=== PATIENT | male | born 1940 | race Caucasian/White ===

== ENCOUNTER 2024-12-17 13:31 | Inpatient (IN) | payer OTHER ==
[2024-12-17] VITALS (14 sets, daily range): BP systolic 139–196; BP diastolic 70–92; PULSE 92–110; RESP 13–32; TEMP 98.3; O2SAT 97
[~2024-12-17] VITALS: Ht 170.2 cm; Wt 61.8 kg
--- NOTE | 2024-12-17 13:49 | EKG ---
[facility] [place] [place] Test Date: 2024-12-17 Test Time: 13:44:03 Pat Name: MARCELLO CRYSTAL Department: ED Room: Gender: [employer]: [facility] : 1940 Requested By: RITIKA MARIO Order Number: [id number] Reading MD: Bebe Manning Measurements Intervals [place] Rate: 63 P: -6 MN: 164 QRS: 9 QRSD: 155 T: -26 QT: 406 QTc: 417 Interpretive Statements Sinus rhythm Right bundle branch block No previous ECG available for comparison Electronically Signed On 12-17-2024 15:42:09 NEWS [place]ER[place] PERSON by Bebe Manning Please click the below link to view image of tracing.
[2024-12-17 14:04] LABS: IMMATURE GRANULOCYTE ABSOLUTE 0.02 K/uL (0-1); NUCLEATED RED BLOOD CELLS 0.0 % (0.0-0.19); PLATELET COUNT (AUTO) 311 K/uL (130-400); RED BLOOD CELL COUNT(AUTO) 4.73 MIL/uL (4.50-6.20); RED CELL DISTRIBUTION WIDTH 16.6 % (11.0-15.5); WHITE BLOOD COUNT (AUTO) 7.9 K/uL (4.8-10.8)
[2024-12-17 14:14] LABS: INR 1.01 (0.85-1.15)
[2024-12-17 14:17] LABS: CREATININE 1.5 mg/dL (0.5-1.3); GLOMERULAR FILTR. RATE CALC 51.0 mL/min (>90); GLUCOSE,RANDOM 103.0 mg/dL (70-105); SODIUM SERUM 140.0 mmol/L (136-145); UREA NITROGEN, BLOOD 14.0 mg/dL (7-18)
--- NOTE | 2024-12-17 14:19 | NUR ---
PATIENT REPORTS NAUSEA AND VOMITTING.
[2024-12-17 14:21] LABS: ASPARTATE AMINOTRANSFERASE 19.0 U/L (10-37); CREATINE KINASE, TOTAL 54.0 U/L (21-232); TOTAL PROTEIN, SERUM 7.7 g/dL (6.0-8.3)
--- NOTE | 2024-12-17 14:55 | HMCIMG ---
EXAM: CT BRAIN WITHOUT CONTRAST Technique: Axial computed tomography of the head with coronal and sagittal reformations. Radiation dose reduction was achieved using ALARA principles including automatic exposure control and iterative reconstruction with parameter adjustments according to patient size and weight. CTDIvol 49.3 mGy; DLP 920.9 mGy???cm. Contrast: No intravenous contrast administered. Clinical Information: Nausea, vomiting, and diarrhea; altered mental status. Comparison: None Findings: Brain: Brain parenchyma demonstrates normal attenuation without focal parenchymal abnormality; meza???white matter differentiation is maintained; brainstem and cerebellum are unremarkable. Ventricles and extra-axial spaces: Ventricular size and configuration are within normal limits; prominence of the sulci, basal cisterns, and sylvian fissures is consistent with age-related parenchymal volume loss; no extra-axial fluid collection or hemorrhage is identified; midline structures are nondisplaced. Skull and extracranial soft tissues: Skull base and calvarium show normal density without destructive lesion; extracranial soft tissues are unremarkable. Orbits: Intraorbital contents are unremarkable. Paranasal sinuses and mastoid air cells: Mucosal polyp in the left maxillary sinus; remaining visualized paranasal sinuses are clear and mastoid air cells are well aerated. Impression: * No acute intracranial abnormality, including no acute hemorrhage, mass effect, or acute territorial infarct. * Age-related parenchymal volume loss. * Chronic small vessel ischemic changes in the periventricular and subcortical white matter. * Left maxillary sinus mucosal polyp. /[place]
[2024-12-17] MEDS: 0.9%NACL 1000ML 1,000 ML IV ONE (14:57)
[2024-12-17] MEDS: ZOSYN 3.375GM +NS 50ML IV ONE (14:57)
--- NOTE | 2024-12-17 15:02 | HMCIMG ---
EXAM: CR Chest, 1 View. CLINICAL HISTORY: cp COMPARISON: None provided. FINDINGS: LUNGS: The lungs show no infiltrate or other acute finding. PLEURAL SPACES: No pleural effusion or pneumothorax. MEDIASTINUM: The cardiomediastinal silhouette is within normal limits. BONES: No acute osseous abnormality. Partially included right shoulder prosthesis is present. IMPRESSION: No acute cardiopulmonary pathology is evident. /[place]
--- NOTE | 2024-12-17 15:30 | NUR ---
DR HORN AT BEDSIDE FOR EVALUATION
--- NOTE | 2024-12-17 15:33 | ERN ---
General Chief Complaint: Nausea,Vomiting,Diarrhea Stated Complaint: HEADACHE/ N/V/D Time Seen by MD: 13:35 Time Seen by Midlevel: 13:35 Source: patient History of Present Illness Initial Comments 84-year-old male with a past medical history of hypertension presents to the emergency department for evaluation of a headache, nausea, vomiting, and diarrhea that started earlier today. According to his who is at bedside the patient has not taken his antihypertensive for several days. Allergies: Coded Allergies: No Known Drug Allergies (Unverified Allergy, Unknown, 12/17/24) Past Medical History Past Medical History: COPD, High Cholesterol, Hypertension Past Surgical History: None ROS Dictation CONSTITUTIONAL: Negative except for HPI HEAD/FACE: Negative except for HPI EENT: Negative except for HPI RESPIRATORY: Negative except for HPI GASTROINTESTINAL/ABDOMINAL: Negative except for HPI GENITOURINARY: Negative except for HPI MUSCULOSKELETAL: Negative except for HPI INTEGUMENTARY: Negative except for HPI NEUROLOGICAL/PSYCH: Negative except for HPI HEMATOLOGIC/LYMPHATIC: Negative except for HPI All Systems Negative, Except as noted above. 13 point review of systems assessed and all negative except for above. Physical Exam Physical Exam Dictation Vital Signs reviewed General Appearance: Alert, oriented x 3, no acute distress, pale, ill-appearing Head and Face: non-traumatic. Eyes: PERRL, pink conjunctivas, eyelid no trauma, anterior chamber with arcus senilis. Ears: Pinnas intact and no signs of trauma or erythema ear canals clear and no discharge TM no erythema Nose: No discharge, no bleeding. Oropharynx: Mouth normal, tongue pink, pharynx clear,no erythema, tonsils no exudates, no abscesses noted, mucous membrane moist Neck: Supple, non-tender, no thyromegaly, no masses, no JVD, no bruits Breast:Deferred Chest:No tenderness, no crepitus, no paradoxical movement, no retractions Lungs:Clear, well-ventilated, symmetric, no rales, no wheezing, no rhonchi, no stridor, good breath sounds bilaterally Heart: Regular rate, regular rhythm, no murmur, no gallops Vascular: no peripheral edema, Abdomen: Soft, positive bowel sounds, nondistended, no guarding, nontender, no rebound, no masses no hepatomegaly, no splenomegaly, no Mcgee's sign, no hernias. Rectal: Deferred Genital: Deferred Neurological: Normal speech, motor function intact, sensory function intact Musculoskeletal: Neck nontender, full range of motion, back nontender, full range of motion, Extremities: nontender, full range of motion Skin: Color pink, dry, no turgor, no rash, no lacerations, no abrasions, no contusions. Lymphatic: Deferred Results Laboratory and Microbiology Lab and Micro Result Laboratory Tests Test 12/17/24 13:54 White Blood Count 7.9 K/uL (4.8-10.8) Red Blood Count 4.73 MIL/uL (4.50-6.20) Hemoglobin 12.8 g/dL (14.0-18.0) L Hematocrit 39.8 % (42-54) L Mean Corpuscular Volume 84.1 fL (79-99) Mean Corpuscular Hemoglobin 27.1 pg (27.0-33.0) Mean Corpuscular Hemoglobin Concent 32.2 g/dL (32.0-36.0) Red Cell Distribution Width 16.6 % (11.0-15.5) H Platelet Count 311 K/uL (130-400) Mean Platelet Volume 9.8 fL (7.5-10.5) Immature Granulocyte % (Auto) 0.3 % (0-1) Neutrophils (%) (Auto) 71.5 % (40.0-77.0) Lymphocytes (%) (Auto) 17.7 % (21.0-51.0) L Monocytes (%) (Auto) 9.7 % (3.0-13.0) Eosinophils (%) (Auto) 0.3 % (0.0-8.0) Basophils (%) (Auto) 0.5 % (0.0-5.0) Neutrophils # (Auto) 5.7 K/uL (1.8-7.7) Lymphocytes # (Auto) 1.4 K/uL (1.0-4.8) Monocytes # (Auto) 0.8 K/uL (0.1-1.0) Eosinophils # (Auto) 0.02 K/uL (0.00-0.70) Basophils # (Auto) 0.04 K/uL (0.00-0.20) Absolute Immature Granulocyte (auto 0.02 K/uL (0-1) Nucleated Red Blood Cells 0.0 % (0.0-0.19) Prothrombin Time 10.7 SEC (9.6-11.6) Prothromb Time International Ratio 1.01 (0.85-1.15) Activated Partial Thromboplast Time 23.1 SEC (26.3-35.5) L Sodium Level 140 mmol/L (136-145) Potassium Level 5.0 mmol/L (3.5-5.1) Chloride Level 101 mmol/L (101-111) Carbon Dioxide Level 29 mmol/L (21-32) Blood Urea Nitrogen 14 mg/dL (7-18) Creatinine 1.5 mg/dL (0.5-1.3) H Glomerular Filtration Rate Calc 51 mL/min (>90) Random Glucose 103 mg/dL (70-105) Lactic Acid Level 2.8 mmol/L (0.8-2.5) H Total Calcium 9.6 mg/dL (8.5-10.1) Magnesium Level 1.60 mg/dL (1.80-2.40) L Total Bilirubin 0.6 mg/dL (0.2-1.0) Aspartate Amino Transf (AST/SGOT) 19 U/L (10-37) Alanine Aminotransferase (ALT/SGPT) 18 U/L (12-78) Alkaline Phosphatase 107 U/L (50-136) Total Creatine Kinase 54 U/L (21-232) Troponin I High Sensitivity 15 ng/L (4-75) B-Type Natriuretic Peptide 126 pg/mL (0-100) H Total Protein 7.7 g/dL (6.0-8.3) Albumin 4.1 g/dL (3.5-5.0) Lipase 31 U/L (16-77) Procalcitonin < 0.05 ng/mL (0.05-0.5) L Labs Reviewed?: Yes MDM MDM: Differential diagnosis: Hypertensive urgency, hypertensive emergency, intracranial bleed, acute coronary syndrome Rationale: Tests considered and ordered secondary to shared decision making include: Previous outside records reviewed: Old ER visits. Risk of complication and/or morbidity or mortality of patient management: None Medications-Per medication reconciliation Need for hospitalization: Patient does meet criteria for hospitalization. Need for emergency major/minor surgery: No There are no social concerns with this patient. Prescription drug management Prescriptions will include symptomatic care Patient's prior external medical records from other ER visits were reviewed by me as indicated. Prior testing and results from previous visits were reviewed. Prior tests were taken into account with medical decision making and resource utilization, independent historian/historians were used to obtain complete medical history. I independently interpreted the test that were performed, results were reviewed by me and considered findings on radiology if ordered. Medical management and examination interpretation discussions were had by me with other qualified healthcare professionals as indicated for the patient's care. ED Course Orders Procedure Category Date Status Time 12 Lead Ekg Tracing- EKG 12/17/24 Complete Technical 13:40 B-Type Natriuretic LAB 12/17/24 Complete Peptide 13:40 Cbc With Differential LAB 12/17/24 Complete 13:40 Comprehensive LAB 12/17/24 Complete Metabolic Panel 13:40 Creatine Kinase, Total LAB 12/17/24 Complete 13:40 Lactic Acid LAB 12/17/24 Complete 13:40 Lipase LAB 12/17/24 Complete 13:40 Magnesium LAB 12/17/24 Complete 13:40 Urinalysis Profile LAB 12/17/24 Logged 13:40 Troponin I High LAB 12/17/24 Complete Sensitivity 13:40 Pt And Ptt LAB 12/17/24 Complete 13:40 Procalcitonin LAB 12/17/24 Complete 13:40 Chest 1vw RAD 12/17/24 Resulted 13:40 Ct Abdomen/Pelvis W/O CT 12/17/24 Taken Contrast 13:40 Ct Head/Brain W/O CT 12/17/24 Resulted Contrast 13:40 Hydralazine 20mg Inj PHA 12/17/24 Complete (Apresoline 20mg In 14:30 Zosyn 3.375gm+Ns 50ml PHA 12/17/24 Complete (Zosyn 3.375gm+Ns 14:30 0.9%Nacl 1000ml (Ns PHA 12/17/24 Complete 1000ml) 15:00 Labetalol 20mg Syg PHA 12/17/24 Complete (Trandate 20mg Syg) 15:00 Morphine 2mg Syg PHA 12/17/24 In Process (Morphine 2mg Syg) 15:30 Ondansetron 4mg Inj PHA 12/17/24 In Process (Zofran 4mg Inj) 15:30 Nicardipine 25mg Inj PHA 12/17/24 In Process (Cardene 25mg Inj) 15:30 Nicardipine 25mg Inj PHA 12/17/24 Complete (Cardene 25mg Inj) 15:17 Current Medications Medications (Trade) Dose Ordered Sig/Elie Route PRN Reason Start Time Stop Time Status Last Admin Dose Admin Hydralazine HCl (APRESOLine 20MG INJ) 10 mg ONCE ONCE IV 12/17/24 14:30 12/17/24 14:31 DC 12/17/24 14:12 Labetalol HCl (TRANdate 20MG SYG) 10 mg ONCE ONCE IV 12/17/24 15:00 12/17/24 15:01 DC 12/17/24 14:54 Morphine Sulfate (morPHINE 2MG SYG) 2 mg ONCE ONCE IVP 12/17/24 15:30 12/17/24 15:31 12/17/24 15:27 Nicardipine HCl (CarDENE 25MG INJ) 25 mg STK-MED ONCE IV 12/17/24 15:17 12/17/24 15:17 DC 12/17/24 15:23 Nicardipine HCl 25 mg/Sodium Chloride 250 ml @ 0 mls/hr PROTOCOL IV 12/17/24 15:30 01/16/25 15:29 Ondansetron HCl (zoFRAN 4MG INJ) 4 mg ONCE ONCE IVP 12/17/24 15:30 12/17/24 15:31 12/17/24 15:27 Piperacillin Sod/ Tazobactam Sod (Zosyn 3.375gm+NS 50ml) 3.375 gm ONCE ONCE IV 12/17/24 14:30 12/17/24 14:31 DC 12/17/24 14:57 Sodium Chloride 1,000 ml @ 0 mls/hr ONCE ONCE IV 12/17/24 15:00 12/17/24 15:01 DC 12/17/24 14:57 Vital Signs Date Time Temp Pulse Resp B/P (MAP) Pulse Ox O2 Delivery O2 Flow Rate FiO2 12/17/24 15:23 86 197/106 12/17/24 15:14 96.6 85 22 218/100 99 Room Air* 0 12/17/24 15:07 96.6 83 22 210/123 99 Room Air* 0 12/17/24 14:54 102 216/97 12/17/24 14:40 96.6 92 22 216/98 98 Room Air* 0 12/17/24 14:15 96.6 70 22 216/112 98 Room Air* 0 21 12/17/24 14:12 70 216/112 12/17/24 13:32 96.6 99 22 210/130 97 DX & DISP Disposition: Inpatient Departure Impression: Primary Impression: Hypertensive emergency Additional Impression: Lactic acidosis Condition: Stable Referrals: SELF,REFERRAL (PCP) Time of Disposition: 15:32 I have reviewed the case, and I agree with, Diagnosis and Plan I performed the substantive portion of the visit. I have reviewed and pers onally made and approve the management plan that is documented in the note by myself or the MAGAN. I acknowledge for responsibility for the patient's management plan. RITIKA MARIO PAC Dec 17, 2024 15:33
--- NOTE | 2024-12-17 16:00 | HMCIMG ---
EXAM: CT ABDOMEN AND PELVIS WITHOUT CONTRAST Technique: Multidetector helical computed tomography of the abdomen and pelvis from the diaphragms through the inguinal region with axial images and multiplanar reformations; dose reduction per ALARA with automatic exposure control and iterative reconstruction. CTDIvol 5.4 mGy; DLP 286.60 mGy???cm. Contrast: No intravenous contrast administered. Clinical Information: Nausea, vomiting, diarrhea; abdominal pain. Comparison: None Findings: Lung bases: Trace right pleural effusion is present; a 4 mm calcified nodule is seen in the left lower lobe; multiple additional 1???2 mm nodular opacities are present in both lower lobes; no lobar collapse or focal consolidation is identified. Liver: Normal size and morphology with smooth contour; no focal hepatic lesion is identified on non-contrast computed tomography; no intrahepatic biliary ductal dilatation. Small left lobe hepatic cyst follow up with US. Gallbladder and biliary tree: Gallbladder wall thickness is within normal limits with smooth margins and homogeneous luminal contents; no cholelithiasis or pericholecystic inflammatory change is identified; common bile duct caliber is within normal limits where visualized. Pancreas: Normal size and attenuation; main pancreatic duct is not dilated; no peripancreatic fluid or fat stranding. Spleen: Normal size and attenuation without focal lesion. Adrenals: Normal morphology and attenuation bilaterally. Kidneys and ureters: Normal renal size and attenuation bilaterally without hydronephrosis, nephrolithiasis, or focal renal mass on non-contrast images. Stomach and duodenum: Stomach is distended without wall thickening; gastroesophageal junction and pylorus are unremarkable. Small bowel: Jejunal and ileal loops are normal in caliber without wall thickening or obstruction. Colon and appendix: Colon and rectum contain fecal material without abnormal distention; no appendiceal enlargement or periappendiceal inflammatory change is identified. Peritoneum and mesentery: No free intraperitoneal fluid or free air; mesentery and omentum are unremarkable. Lymph nodes: No pathologically enlarged abdominal or pelvic lymph nodes are identified. Retroperitoneum and vasculature: Moderate atherosclerotic calcifications of the abdominal aorta and bilateral iliac arteries are present; aorta and inferior vena cava are normal in course and caliber. Pelvic organs: Urinary bladder demonstrates normal wall thickness and contour; prostate is normal in size. Abdominal wall/soft tissues: No acute abnormality of the abdominal wall or paraspinal soft tissues. Osseous structures: Degenerative changes of the visualized spine are present; prior laminectomies at L3, L4, and L5 are noted; posterior transpedicular screw fixation involving L2 and L3 is present; multilevel spondylosis is noted; no acute osseous abnormality is identified. Impression: * No acute intra-abdominal or pelvic abnormality on non-contrast computed tomography???no obstruction, appendicitis, abscess, free air, or free fluid is identified. Small left lobe hepatic cyst follow up with US. * Trace right pleural effusion and small pulmonary nodules at the lung bases, including a 4 mm calcified nodule in the left lower lobe and multiple 1???2 mm nodules bilaterally; the calcified nodule is benign in appearance and the sub-5 mm nodules are of low clinical significance in low-risk patients???consider guideline-based clinical follow-up only if the patient is high risk for primary lung cancer. * Moderate atherosclerotic calcifications of the abdominal aorta and bilateral iliac arteries. * Postoperative changes of the lumbar spine with multilevel degenerative spondylosis and prior laminectomies at L3???L5 and transpedicular screw fixation at L2???L3, without acute osseous abnormality. /[place]
--- NOTE | 2024-12-17 16:13 | NUR ---
DCP:HOME vs SNF SW spoke to Georgette Monroy [phone] who was at bed side. states that they just moved to [place] from [facility] 2 months ago and live in a 5th wheel. As per , he does not use and DME because they are in "tight quarters" where the equipment may not fit and if he feels unsteady he grabs onto the dsouza. Pt does not have any home health or provider services. Pt at times requires assistance with ADLs and assists. Pt was about to establish as a patient at the [facility] however was instructed to come into the ER instead. At [place] states that they are willing to consider a SNF if a doctor recommends it.
[2024-12-17] MEDS: 0.9%NACL 1000ML 1,000 ML IV SCH (16:29)
[2024-12-17] MEDS ORDERED: NITROGLYCERIN 0.4 MG SL TAB SL PRN (16:30)
[2024-12-17 16:31] LABS: LACTATE DEHYDROGENASE 113.0 U/L (81-234)
[2024-12-17 16:34] LABS: CREATINE KINASE, TOTAL 31.0 U/L (21-232)
--- NOTE | 2024-12-17 16:40 | NUR ---
CARDIOLOGY AT BEDSIDE AT THIS TIME.
--- NOTE | 2024-12-17 16:46 | NUR ---
ATTEMPTED TO CALL REPORT AT THIS TIME; PENDING CALL BACK
--- NOTE | 2024-12-17 17:11 | CONS ---
[facility] CONSULTATION NOTE Date Patient Seen: Dec 17, 2024 Time of Visit: 184 Supervising Physician: [Dr. Antony Grady] Reason for Consultation: [ICU consult for HTN emergency ] Primary Care Physician: [Patient does not remember the neam- relocated here from [facility] ] Outpatient Specialists: [ ] Inpatient Consults: [[facility] team for ICU management on Cardene drip ] PROBLEM LIST: Hypertensive emergency-POA Possible hypertensive encephalopathy-POA Intractable headache-POA Persistent diarrhea-POA Intractable vomiting-POA ALEAH-POA Hypomagnesemia-POA Hyperlactatemia-POA Lung nodules-POA Small left lobe hepatic cyst-POA Medical [id number] Tremors on the lips and arms, denies DX of parkinsons' disease-POA RLS Primary HTN COPD, not on exacerbation HLD Arthritis GERD Mood disorder Chronic pain Mild dementia PLAN: -Continue critical care management -Continue Cardene drip, wean-off per BP response -Give a one-time dose Clonidine; resume home BP meds -Obtain stool CX, GI panel and O&P -Anti-emetics PRN -Obtain 2decho in am -Monitor and replete electrolytes PRN -I do not see any indication for antibiotic at this time since his UA, CXR and CT AP were unremarkable and did not show any acute processes. Will continue to monitor pending stool studies -Education regarding adherence to treatment plan. He claims he did not receive his prescription eversince he moved here in [place] from [facility]. 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 Patient states that he recently moved to [place] about a month ago. He is originally from [facility]. He has underlying history of hypertension and has been maintained on multiple antihypertensives as outpatient. He has been maintained on lisinopril 20 mg daily as well as amlodipine 10 mg daily. Since moving to [place], he has not taken any antihypertensives for about a month due to problems establishing with a primary care physician as outpatient. Over the last four days, he has been having malaise, subjective fevers, chills, headache, nausea. He has been having diarrhea and reports having had about six loose stools today. Headache has been progressing and was severe in intensity and patient rates it as 10/10. Reports having some photophobia. Denies any neck pain or stiffness. Denies having previous history of stroke, seizures or epilepsy. Denies previous history of DE. Denies focal weakness of upper or lower extremities." BIS team was consulted for ICU management on [facility] for HTN emergency. Patient was seen and evaluated in ED room nine, appears alert and oriented but struggling with his memory with tremors on his hands and lips. Unknown if this is his baseline or a result of hypertensive emergency. He denies any history Parkinson's disease. For bedside RN, patient has history of dementia and mood disorders. Patient claims that earlier, he was feeling like he has had was about to explode. He is not take any med for the past two months because he recently moved here in [place] from [facility] and his PCP dinner since his prescription here. Onset of his symptoms was four days ago, he was verbally concerned about him eating chicken brought from [employer]. Apparently, there was an outbreak about certain infection caused by the chicken from [employer]. P hysical assessment was unrevealing without focal neurologic deficits. Patient claims that his headache has significantly improved, his BP was between 150-160 with ongoing Cardizem drip running. Goals of care were discussed with the patient verbalized understanding and agreement. We will continue to follow along patient's response to treatment. On behalf of BIS team, thank you for the opportunity to participate in 's care. PAST MEDICAL HX: see above PAST SURGICAL HX: noncontributory SOCIAL HISTORY: No tobacco, ETOH, or illicit drug use Coded Allergies: No Known Drug Allergies (Unverified Allergy, Unknown, 12/17/24) REVIEW OF SYSTEMS: 12 point ROS reviewed with patient. Pertinent positives mentioned above. Otherwise negative. PHYSICAL EXAM: GENERAL: alert, weak, awake oriented x 3 HEENT: EOMI, Sclera non icteric, moist mucosa, tremors' on the lips NECK: Supple, no JVD, trachea midline LUNGS: Clear breath sounds bilaterally. No wheezes HEART: Regular rate and rhythm. Normal S1 and S2, without murmurs ABD: Abdomen soft, nontender. Bowel sounds present EXT: No clubbing cyanosis or edema, tremors on the arms NEURO: Alert and oriented to person, follows commands Vital Signs (last 8hr) Date Time Temp Pulse Resp B/P (MAP) Pulse Ox O2 Delivery O2 Flow Rate FiO2 12/17/24 16:55 96.6 98 21 167/78 98 Room Air* 0 12/17/24 16:36 96.6 101 21 111/54 98 Room Air* 0 12/17/24 16:22 96.6 103 21 218/83 98 Room Air* 0 12/17/24 16:03 96.6 96 21 209/83 97 Room Air* 0 12/17/24 15:39 96.6 95 21 197/106 95 Room Air* 0 12/17/24 15:30 96.6 85 22 205/98 99 Room Air* 0 12/17/24 15:23 86 197/106 12/17/24 15:14 96.6 85 22 218/100 99 Room Air* 0 12/17/24 15:07 96.6 83 22 210/123 99 Room Air* 0 12/17/24 14:54 102 216/97 12/17/24 14:40 96.6 92 22 216/98 98 Room Air* 0 12/17/24 14:15 96.6 70 22 216/112 98 Room Air* 0 12/17/24 14:12 70 216/112 12/17/24 13:32 96.6 99 22 210/130 97 LABS: Hematology Labs: Test 12/17/24 13:54 Range/Units White Blood Count 7.9 4.8-10.8 K/uL Red Blood Count 4.73 4.50-6.20 MIL/uL Hemoglobin 12.8 L 14.0-18.0 g/dL Hematocrit 39.8 L 42-54 % Mean Corpuscular Volume 84.1 79-99 fL Mean Corpuscular Hemoglobin 27.1 27.0-33.0 pg Mean Corpuscular Hemoglobin Concent 32.2 32.0-36.0 g/dL Red Cell Distribution Width 16.6 H 11.0-15.5 % Platelet Count 311 130-400 K/uL Mean Platelet Volume 9.8 7.5-10.5 fL Immature Granulocyte % (Auto) 0.3 0-1 % Neutrophils (%) (Auto) 71.5 40.0-77.0 % Lymphocytes (%) (Auto) 17.7 L 21.0-51.0 % Monocytes (%) (Auto) 9.7 3.0-13.0 % Eosinophils (%) (Auto) 0.3 0.0-8.0 % Basophils (%) (Auto) 0.5 0.0-5.0 % Neutrophils # (Auto) 5.7 1.8-7.7 K/uL Lymphocytes # (Auto) 1.4 1.0-4.8 K/uL Monocytes # (Auto) 0.8 0.1-1.0 K/uL Eosinophils # (Auto) 0.02 0.00-0.70 K/uL Basophils # (Auto) 0.04 0.00-0.20 K/uL Absolute Immature Granulocyte (auto 0.02 0-1 K/uL Nucleated Red Blood Cells 0.0 0.0-0.19 % Erythrocyte Sedimentation Rate 11 0-20 MM/HR Chemistry Labs: Test 12/17/24 16:06 12/17/24 13:54 Range/Units Total Creatine Kinase 31 # 21-232 U/L Troponin I High Sensitivity 20.9 4-75 ng/L Sodium Level 140 136-145 mmol/L Potassium Level 5.0 3.5-5.1 mmol/L Chloride Level 101 101-111 mmol/L Carbon Dioxide Level 29 21-32 mmol/L Blood Urea Nitrogen 14 7-18 mg/dL Creatinine 1.5 H 0.5-1.3 mg/dL Glomerular Filtration Rate Calc 51 >90 mL/min Random Glucose 103 70-105 mg/dL Lactic Acid Level 2.8 H 0.8-2.5 mmol/L Total Calcium 9.6 8.5-10.1 mg/dL Magnesium Level 1.60 L 1.80-2.40 mg/dL Total Bilirubin 0.6 0.2-1.0 mg/dL Aspartate Amino Transf (AST/SGOT) 19 10-37 U/L Alanine Aminotransferase (ALT/SGPT) 18 12-78 U/L Alkaline Phosphatase 107 50-136 U/L Lactate Dehydrogenase 113 81-234 U/L C-Reactive Protein, Quantitative 2.40 0.5-3.0 mg/L B-Type Natriuretic Peptide 126 H 0-100 pg/mL Total Protein 7.7 6.0-8.3 g/dL Albumin 4.1 3.5-5.0 g/dL Lipase 31 16-77 U/L Procalcitonin < 0.05 L 0.05-0.5 ng/mL Coagulation Labs: Test 12/17/24 13:54 Range/Units Prothrombin Time 10.7 9.6-11.6 SEC Prothromb Time International Ratio 1.01 0.85-1.15 Activated Partial Thromboplast Time 23.1 L 26.3-35.5 SEC DIAGNOSTICS / RADIOLOGY RESULTS: [ ] PLAN NEURO: Minimize central acting medications as possible. Fall Precautions. Well lighted room through the day and minimize interruptions through the night to prevent acute delirium. PULMONARY: Supplemental 02 as needed Titrate Fio2 to keep Spo2 > or = 90% DuoNebs and CPT as needed IS hourly while awake for pulmonary hygiene Out of bed to chair as tolerated VAP Bundle Vent/BIPAP Settings: [ ] Driving pressure: [ ] P Plat: [ ] Static C: [ ] Static R: [ ] P/F Ratio: [ ] CARDIOVASCULAR: Follow hemodynamics. Titrate vasopressor to keep MAP >65 or systolic blood pressure >95mmHg DRIPS: [Cardene drip ] LINES: [ ] GI & NUTRITION: Continue nutritional support Aspirations precautions Prokinetic agents and laxatives as needed KIDNEYS & ELECTROLYTES: Strict monitoring of intake and output Daily weights Avoid nephrotoxic agents Monitor electrolytes and replace as needed Goal urine output of 30mL/hr or 0.5mL/kg/hr Urine output: [ ] Fluid Balance: [ ] ENDOCRINE: Maintain blood glucose between 100-180 at all times. Insulin sliding scale for blood glucose management INFECTIOUS DISEASE: Trend temperature. Taylor-culture if febrile. Micro: [ ] Antibiotics: [ ] HEMATOLOGY & COAGULATION: Monitor H&H. Keep Hgb > 7 Transfuse 1 unit of PRBC for Hgb < 7 Transfuse 1 pack of platelets of platelets < 20, 000 Watch for any signs and symptoms of bleeding SKIN: Pressure ulcer prevention per facility protocol Rehab: PT/OT Prophylaxis: GI: DVT: [ ] Code Status: Full Resuscitation Disposition: [ ] Other: Total patient care time exceeds 35 minutes excluding all procedures. Case was discussed and seen with my supervising physician. The above plan was formulated and agreed upon. SONJA HOGAN [facility] Dec 17, 2024 17:11
[2024-12-17] MEDS ORDERED: IOHEXOL 350 MG/ML 100ML INFUS..BTL IV ONE ×2 (17:21→18:15)
--- NOTE | 2024-12-17 17:32 | HP ---
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 Patient states that he recently moved to [place] about a month ago. He is originally from [facility]. He has underlying history of hypertension and has been maintained on multiple antihypertensives as outpatient. He has been maintained on lisinopril 20 mg daily as well as amlodipine 10 mg daily. Since moving to [place], he has not taken any antihypertensives for about a month due to problems establishing with a primary care physician as outpatient. Over the last four days, he has been having malaise, subjective fevers, chills, headache, nausea. He has been having diarrhea and reports having had about six loose stools today. Headache has been progressing and was severe in intensity and patient rates it as 10/10. Reports having some photophobia. Denies any neck pain or stiffness. Denies having previous history of stroke, seizures or epilepsy. Denies previous history of VT. Denies focal weakness of upper or lower extremities. Patient does report having history of COPD and has been maintained on home inhalers. Reports that close to January last year, he had infection of right shoulder prosthesis that was placed about 6-7 years ago with loosening of the screws. Patient was found to have prosthetic joint infection and received prolo nged course of IV antibiotics which was followed by right shoulder reverse arthroplasty in [place]. Patient on bedside interview appears in distress with active nausea, vomiting, severe headache. On presentation to the hospital, patient was found to have blood pressure trending between 200s-220s/100s-130s systolic, noted to be afebrile with T-max of 96.6 F, heart rate of 85. Labs on presentation showed WBC count of 7900, hemoglobin 12.8, platelet count of 311,000. BMP showed sodium of 140, potassium 5.0, BUN of 14, creatinine 0.5, lactic acid of 2.8, magnesium 1.6, initial cardiac troponin 15. Patient underwent CT head without contrast which showed no acute intracranial abnormality with no findings of acute hemorrhage, mass effect or acute territorial infarct. Chest x-ray showed no acute infiltrates, CT abdomen pelvis without contrast showed findings of no acute intra-abdominal or pelvic abnormality. Patient received bolus of NS in the ER along with doses of IV hydralazine and IV labetalol with no improvement of blood pressure, patient was subsequently initiated on Cardene drip. Patient will be admitted to ICU. Patient will be initiated on Cardene drip. Consultation with Neurology will be requested. We will have Cardiology and Intensive Care Service see this patient closely. Patient during his ER stay also started having chest pain, substernal with no associated radiation to the back or the shoulder blade. Patient received a dose of nitroglycerin with improvement of chest pain. We will see how patient progresses in the next 48-72 hours. Condition remains critical, plan of care was discussed with patient and family at bedside and personally discussed patient's case with multiple consultants. REVIEW OF SYSTEMS CONSTITUTIONAL: Fevers, chills, fatigue, malaise NEUROLOGICAL: Severe headache this morning, denies any neck pain or stiffness ENT: No hearing loss, otalgia, otorrhea, rhinitis, rhinorrhea, hoarseness, or sore throat. CARDIOVASCULAR: Reported having substernal chest pressure during ER stay PULMONARY: Denies any shortness of breath, cough, phlegm/sputum, hemoptysis, pleuritic chest pain. SLEEP: Denies morning headaches, daytime somnolence or napping. Denies difficulty falling asleep, staying asleep, waking from sleep. Denies knowledge of snoring. GASTROINTESTINAL: Denies any type of dysphagia to either liquids or solids. Denies nausea, vomiting, pyrosis, early satiety, abdominal pain, diarrhea, constipation, or changes in stool consistency or caliber. Denies coffee-ground emesis, hematemesis, hematochezia, or melanotic stools. GENITOURINARY: Denies frequency, urgency, nocturia, hematuria or incontinence (Storage/Irritative symptoms.) Low urinary stream, straining to void, urinary intermittency or hesitancy, splitting of the voiding stream, terminal dribbling. ENDOCRINOLOGIC: Denies polyuria, polydipsia, polyphagia or heat/cold intolerances. HEMATOLOGIC: Denies thrombophilia/previous clots, or coagulopathy/bleeding disorders. ONCOLOGIC: Denies personal history of malignancy. DERMATOLOGIC: Denies rashes or pruritus. PSYCHIATRIC: Denies any suicidal or homicidal ideation. Denies hallucinations. 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 treated in [place] PAST SURGICAL HISTORY: Right shoulder reverse arthroplasty recently close to 03/2024, prior history of right shoulder prosthesis about 6-7 years ago, back surgery, history of abdominal surgery while in his 20s PAST SOCIAL HISTORY: Patient reports having remote history of significant smoking, denies significant alcohol consumption, denies illicit drug use FAMILY HISTORY: Denies pertinent family history Allergies: No known drug allergies Home medications: Patient reports being on amlodipine 10 mg daily, lisinopril 20 mg daily, atorvastatin, home inhalers, patient has not taken any medications for about a month since moving from [place] moved to [place] Coded Allergies: No Known Drug Allergies (Unverified Allergy, Unknown, 12/17/24) PHYSICAL EXAM GENERAL APPEARANCE: The patient is awake, alert, appears frail and debilitated, he is vomiting on the stretcher, appears in mild distress NEUROLOGICAL: Cranial nerves II-XII grossly intact. Patient is moving both the upper and lower extremities with no focal deficits, patient is very soft spoken HEENT: Face is symmetric. Pupils are equal and reactive. Extraocular movements are intact. NECK: Supple. No JVD. No thyromegaly. No submental, submandibular, pre- /postauricular, occipital or supraclavicular lymphadenopathy. CHEST: Normal chest expansion. No Telemetry. LUNGS: Absence of any rales, rhonchi or any wheezing. CARDIOVASCULAR: Regular. S1 and S2 normal. No appreciable rubs, murmurs or gallops. ABDOMEN: Soft, nontender, and nondistended. There is no rebound, voluntary guarding, or rigidity. : Deferred. No Sanz. EXTREMITIES: Non-edematous and not cyanotic. No clubbing. Good capillary refill. SKIN: No skin breakdown. Vital Sign (Last 24 Hours) 12/17/24 16:55 Temp 96.6 Pulse 98 Resp 21 B/P (MAP) 167/78 Pulse Ox 98 O2 Delivery Room Air* O2 Flow Rate 0 FiO2 21 LABS: Laboratory: Test 12/17/24 16:06 12/17/24 13:54 Range/Units Total Creatine Kinase 31 # 21-232 U/L Troponin I High Sensitivity 20.9 4-75 ng/L White Blood Count 7.9 4.8-10.8 K/uL Red Blood Count 4.73 4.50-6.20 MIL/uL Hemoglobin 12.8 L 14.0-18.0 g/dL Hematocrit 39.8 L 42-54 % Mean Corpuscular Volume 84.1 79-99 fL Mean Corpuscular Hemoglobin 27.1 27.0-33.0 pg Mean Corpuscular Hemoglobin Concent 32.2 32.0-36.0 g/dL Red Cell Distribution Width 16.6 H 11.0-15.5 % Platelet Count 311 130-400 K/uL Mean Platelet Volume 9.8 7.5-10.5 fL Immature Granulocyte % (Auto) 0.3 0-1 % Neutrophils (%) (Auto) 71.5 40.0-77.0 % Lymphocytes (%) (Auto) 17.7 L 21.0-51.0 % Monocytes (%) (Auto) 9.7 3.0-13.0 % Eosinophils (%) (Auto) 0.3 0.0-8.0 % Basophils (%) (Auto) 0.5 0.0-5.0 % Neutrophils # (Auto) 5.7 1.8-7.7 K/uL Lymphocytes # (Auto) 1.4 1.0-4.8 K/uL Monocytes # (Auto) 0.8 0.1-1.0 K/uL Eosinophils # (Auto) 0.02 0.00-0.70 K/uL Basophils # (Auto) 0.04 0.00-0.20 K/uL Absolute Immature Granulocyte (auto 0.02 0-1 K/uL Nucleated Red Blood Cells 0.0 0.0-0.19 % Erythrocyte Sedimentation Rate 11 0-20 MM/HR Prothrombin Time 10.7 9.6-11.6 SEC Prothromb Time International Ratio 1.01 0.85-1.15 Activated Partial Thromboplast Time 23.1 L 26.3-35.5 SEC Sodium Level 140 136-145 mmol/L Potassium Level 5.0 3.5-5.1 mmol/L Chloride Level 101 101-111 mmol/L Carbon Dioxide Level 29 21-32 mmol/L Blood Urea Nitrogen 14 7-18 mg/dL Creatinine 1.5 H 0.5-1.3 mg/dL Glomerular Filtration Rate Calc 51 >90 mL/min Random Glucose 103 70-105 mg/dL Lactic Acid Level 2.8 H 0.8-2.5 mmol/L Total Calcium 9.6 8.5-10.1 mg/dL Magnesium Level 1.60 L 1.80-2.40 mg/dL Total Bilirubin 0.6 0.2-1.0 mg/dL Aspartate Amino Transf (AST/SGOT) 19 10-37 U/L Alanine Aminotransferase (ALT/SGPT) 18 12-78 U/L Alkaline Phosphatase 107 50-136 U/L Lactate Dehydrogenase 113 81-234 U/L C-Reactive Protein, Quantitative 2.40 0.5-3.0 mg/L B-Type Natriuretic Peptide 126 H 0-100 pg/mL Total Protein 7.7 6.0-8.3 g/dL Albumin 4.1 3.5-5.0 g/dL Lipase 31 16-77 U/L Procalcitonin < 0.05 L 0.05-0.5 ng/mL Current Medications Medications (Trade) Dose Ordered Sig/Elie Route PRN Reason Start Time Stop Time Status Last Admin Dose Admin Acetaminophen (TYLenol 325MG TAB) 650 mg Q6H PRN PO MILD PAIN (1-3) 12/17/24 16:00 01/16/25 15:59 Albuterol (DUOneb) 1 udvial Q6H PRN IH SHORTNESS OF BREATH 12/17/24 16:00 12/17/24 16:02 DC Albuterol (DUOneb) 1 udvial Q6H PRN IH SHORTNESS OF BREATH 12/17/24 16:00 01/16/25 15:59 Atorvastatin Calcium (LIPItor 40MG) 40 mg HS PO 12/17/24 21:00 01/16/25 20:59 Budesonide (Pulmicort 0.5 Mg/2ml) 0.5 mg BIDRESP IH 12/17/24 18:00 01/16/25 17:59 Famotidine (Pepcid 20mg Vial) 20 mg Q48H IV 12/17/24 21:00 12/17/24 16:03 DC Hydromorphone HCl (DiLAUDid 0.5MG INJ) 0.5 mg Q6H PRN IVP SEVERE PAIN (7-10) 12/17/24 16:30 12/22/24 16:29 Magnesium Sulfate 50 ml @ 0 mls/hr PROTOCOL IV 12/17/24 16:00 01/16/25 15:59 Nicardipine HCl 25 mg/Sodium Chloride 250 ml @ 0 mls/hr PROTOCOL IV 12/17/24 15:30 01/16/25 15:29 Nitroglycerin (Nitrostat) 0.4 mg AD PRN SL CHEST PAIN 12/17/24 16:30 01/16/25 16:29 Ondansetron HCl (zoFRAN 4MG INJ) 4 mg Q6H PRN IVP NAUSEA/VOMITING 12/17/24 16:00 01/16/25 15:59 Piperacillin Sod/ Tazobactam Sod (Zosyn 3.375gm+NS 50ml) 3.375 gm Q8H IVPB 12/17/24 23:00 12/27/24 22:59 Sodium Chloride 1,000 ml @ 75 mls/hr [id number] IV 12/17/24 16:00 01/16/25 15:59 12/17/24 16:29 75 MLS/HR DIAGNOSTICS / RADIOLOGY: SERVICE 1340 REASON: n/v/d ORDERING PHYSICIAN: RITIKA MARIO PAC PROCEDURE: HEAD WO - CT HEAD/BRAIN W/O CONTRAST EXAM: CT BRAIN WITHOUT CONTRAST Technique: Axial computed tomography of the head with coronal and sagittal reformations. Radiation dose reduction was achieved using ALARA principles including automatic exposure control and iterative reconstruction with parameter adjustments according to patient size and weight. CTDIvol 49.3 mGy; DLP 920.9 mGy???cm. Contrast: No intravenous contrast administered. Clinical Information: Nausea, vomiting, and diarrhea; altered mental status. Comparison: None Findings: Brain: Brain parenchyma demonstrates normal attenuation without focal parenchymal abnormality; meza???white matter differentiation is maintained; brainstem and cerebellum are unremarkable. Ventricles and extra-axial spaces: Ventricular size and configuration are within normal limits; prominence of the sulci, basal cisterns, and sylvian fissures is consistent with age-related parenchymal volume loss; no extra-axial fluid collection or hemorrhage is identified; midline structures are nondisplaced. Skull and extracranial soft tissues: Skull base and calvarium show normal density without destructive lesion; extracranial soft tissues are unremarkable. Orbits: Intraorbital contents are unremarkable. Paranasal sinuses and mastoid air cells: Mucosal polyp in the left maxillary sinus; remaining visualized paranasal sinuses are clear and mastoid air cells are well aerated. Impression: * No acute intracranial abnormality, including no acute hemorrhage, mass effect, or acute territorial infarct. * Age-related parenchymal volume loss. * Chronic small vessel ischemic changes in the periventricular and subcortical white matter. * Left maxillary sinus mucosal polyp. /[place] DICTATED BY: RONN FLEMING MD DATE: 12/17/241553 ELECTRONICALLY SIGNED BY: RONN FLEMING MD DATE: 12/17/241553 SERVICE 134 REASON: cp ORDERING PHYSICIAN: RITIKA MARIO PAC PROCEDURE: CXR1VW - CHEST 1VW EXAM: CR Chest, 1 View. CLINICAL HISTORY: cp COMPARISON: None provided. FINDINGS: LUNGS: The lungs show no infiltrate or other acute finding. PLEURAL SPACES: No pleural effusion or pneumothorax. MEDIASTINUM: The cardiomediastinal silhouette is within normal limits. BONES: No acute osseous abnormality. Partially included right shoulder prosthesis is present. IMPRESSION: No acute cardiopulmonary pathology is evident. /[place] DICTATED BY: NOHEMI DAVIS Jr., MD DATE: 12/17/241600 ELECTRONICALLY SIGNED BY: NOHEMI DAVIS Jr., MD DATE: 12/17/24 160 SERVICE 1340 REASON: n/v/d ORDERING PHYSICIAN: RITIKA MARIO PAC PROCEDURE: ABD PEL WO - CT ABDOMEN/PELVIS W/O CONTRAST EXAM: CT ABDOMEN AND PELVIS WITHOUT CONTRAST Technique: Multidetector helical computed tomography of the abdomen and pelvis from the diaphragms through the inguinal region with axial images and multiplanar reformations; dose reduction per ALARA with automatic exposure control and iterative reconstruction. CTDIvol 5.4 mGy; DLP 286.60 mGy???cm. Contrast: No intravenous contrast administered. Clinical Information: Nausea, vomiting, diarrhea; abdominal pain. Comparison: None Findings: Lung bases: Trace right pleural effusion is present; a 4 mm calcified nodule is seen in the left lower lobe; multiple additional 1???2 mm nodular opacities are present in both lower lobes; no lobar collapse or focal consolidation is identified. Liver: Normal size and morphology with smooth contour; no focal hepatic lesion is identified on non-contrast computed tomography; no intrahepatic biliary ductal dilatation. Small left lobe hepatic cyst follow up with US. Gallbladder and biliary tree: Gallbladder wall thickness is within normal limits with smooth margins and homogeneous luminal contents; no cholelithiasis or pericholecystic inflammatory change is identified; common bile duct caliber is within normal limits where visualized. Pancreas: Normal size and attenuation; main pancreatic duct is not dilated; no peripancreatic fluid or fat stranding. Spleen: Normal size and attenuation without focal lesion. Adrenals: Normal morphology and attenuation bilaterally. Kidneys and ureters: Normal renal size and attenuation bilaterally without hydronephrosis, nephrolithiasis, or focal renal mass on non-contrast images. Stomach and duodenum: Stomach is distended without wall thickening; gastroesophageal junction and pylorus are unremarkable. Small bowel: Jejunal and ileal loops are normal in caliber without wall thickening or obstruction. Colon and appendix: Colon and rectum contain fecal material without abnormal distention; no appendiceal enlargement or periappendiceal inflammatory change is identified. Peritoneum and mesentery: No free intraperitoneal fluid or free air; mesentery and omentum are unremarkable. Lymph nodes: No pathologically enlarged abdominal or pelvic lymph nodes are identified. Retroperitoneum and vasculature: Moderate atherosclerotic calcifications of the abdominal aorta and bilateral iliac arteries are present; aorta and inferior vena cava are normal in course and caliber. Pelvic organs: Urinary bladder demonstrates normal wall thickness and contour; prostate is normal in size. Abdominal wall/soft tissues: No acute abnormality of the abdominal wall or paraspinal soft tissues. Osseous structures: Degenerative changes of the visualized spine are present; prior laminectomies at L3, L4, and L5 are noted; posterior transpedicular screw fixation involving L2 and L3 is present; multilevel spondylosis is noted; no acute osseous abnormality is identified. Impression: * No acute intra-abdominal or pelvic abnormality on non-contrast computed tomography???no obstruction, appendicitis, abscess, free air, or free fluid is identified. Small left lobe hepatic cyst follow up with US. * Trace right pleural effusion and small pulmonary nodules at the lung bases, including a 4 mm calcified nodule in the left lower lobe and multiple 1???2 mm nodules bilaterally; the calcified nodule is benign in appearance and the sub-5 mm nodules are of low clinical significance in low-risk patients???consider guideline-based clinical follow-up only if the patient is high risk for primary lung cancer. * Moderate atherosclerotic calcifications of the abdominal aorta and bilateral iliac arteries. * Postoperative changes of the lumbar spine with multilevel degenerative spondylosis and prior laminectomies at L3???L5 and transpedicular screw fixation at L2???L3, without acute osseous abnormality. 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 anti emetics Patient's case was discussed with tele neurology as no in-house neurologist available in [facility], recommendations to obtain CT angiogram of the head and neck which I ordered Patient will receive a dose of 1 g of IV Tylenol and a dose of IV Toradol to assist for management of the headache Due to underlying lactic acidosis and poor oral intake over the last several days, we will start patient on IV hydration with NS 75 mls/hr We will trend troponin to rule out active ACS, we will obtain a urine drug scre en Lactic acid will be monitored closely tonight We will start patient on broad-spectrum antibiotics with IV Zosyn We will obtain a 2D echocardiogram, carotid ultrasound, and renal artery Doppler as well We will keep patient on GI prophylaxis with IV Protonix We will obtain list of home medication and reconcile once available tomorrow once nausea and vomiting improves We will follow up blood cultures, we will check CRP, procalcitonin, we will obtain GI PCR panel Patient's case was discussed with Dr. Grady with ICU service, Dr. Martines with Cardiology as well We will monitor closely tonight, we will follow patient's clinical symptoms We will place orders for IV hydromorphone 0.5 mg q.6 hours p.r.n. tonight for management of severe pain We will keep patient on neuro checks q.2 hours tonight Patient initially in the ER was needing high-dose of Cardene drip, blood pressure improved, Cardene drip is being slowly decreased to maintain systolic blood pressure between 160-180 to reduce risk of ischemic stroke and renal hypoperfusion Condition remains critical Critical care minutes: 45 minutes, I also spent more than 30 minutes at bedside coordinating patient care Plan of care was discussed with patient and at bedside We will request case management and physical therapy evaluation tomorrow Jc Au MD Advanced Care Planning: Which of the following were discussed: Hospice care: Yes __ No _X_ Therapeutic options: Yes _X_ No __ Advance directives: Yes _X_ No __ Other discussions: Discussed with who?: Patient Voluntary nature of this service was explained to the patient? Yes _x_ No __ Amount of time spent: 20 minutes JC AU MD Dec 17, 2024 17:32
[2024-12-17 17:34] LABS: APPEARANCE,URINE CLEAR (CLEAR); GLUCOSE, URINE (UA) NEGATIVE (NEGATIVE); LEUKOCYTE ESTERASE ,URINE NEGATIVE Leu/uL (NEGATIVE); NITRATE,URINE NEGATIVE (NEGATIVE); OCCULT BLOOD,URINE NEGATIVE (NEGATIVE)
[2024-12-17 17:35] LABS: ADD UA MICROSCOPIC NO
[2024-12-17 17:41] LABS: AMPHET/METH SCREEN,URINE NEGATIVE (NEGATIVE); BARBITURATE SCREEN, URINE NEGATIVE (NEGATIVE); CANNABINOID SCREEN,URINE NEGATIVE (NEGATIVE); COCAINE SCREEN,URINE NEGATIVE (NEGATIVE); CREATININE,URINE RANDOM 79.58 mg/dL (30-135); PROTEIN,URINE RANDOM 24.5 mg/dL (0-11.9)
--- NOTE | 2024-12-17 17:57 | BSKYNEURO ---
[facility] Procedure Note [facility] Consult Consult [facility] # Demographics Consult Type: General Neurology Patient Location: Emergency Room First Name: MARCELLO Last Name: BONILLA Date of : 02/22/1958 Age: 66 Gender: Male Facility: [facility] Time of Initial Page (Central Time): 12/17/2024 15:45 First Contact with Site (Central Time): 12/17/2024 15:45 # HPI History: 66 y/o M with Hx of HTN presents with severe FOX and chest pressure SBP 220s. Afebrile # Exam Time of Exam (Central Time): 12/17/2024 16:36 Mental Status: - awake - alert and oriented x 3 - follows commands Language: - normal speech Cranial Nerves: - normal Motor: - no drift Sensory: - normal sensation Cerebellar: - normal cerebellar exam tremor # PMH-FH-SH Past Medical History: - hypertension Medications: - antihypertensive # Data Head CT: negative for acute changes # Assessment Impression: - Headache # Plan Target Blood Pressure: SBP < 180 Imaging: (urgency: routine): - CT Angiogram Head and CT Angiogram Neck - MRI Brain without contrast Other: - If patient has any neurological deterioration please call me back immediately # Logistics Attestation of consult completion: The patient is located at: [facility]. Facility staff participated in the visit. I performed this telemedicine visit from my offsite office utilizing interactive 2 way audio and visual telecommunication technology at the request of the onsite emergency room provider. Total time spent in telemedicine encounter: I spent 30 minutes reviewing clinical data and/or imaging, obtaining history, examining the patient, communicating with the onsite care team, and in preparation of this report. # Demographics First Name: MARCELLO Last Name: BONILLA Facility: [facility] Electronically signed at 12/17/2024 17:56 (Central Time) by Lala Abreu DO Neuro Consult Order placed for: Yes DEVIN ABREU DO Dec 17, 2024 17:57
--- NOTE | 2024-12-17 18:37 | NUR ---
REPORT GIVEN TO CHITRA IN ICU AT THIS TIME.
[2024-12-17] MEDS: BUDESONIDE 0.5 MG/2 ML INH IH SCH (18:41)
--- NOTE | 2024-12-17 18:43 | CONS ---
CONSULT NOTE: CONSULT NOTE: CARDIOLOGY Reason for consult: Chest pain HPI/story at presentation: 66 year old male with a past medical history significant for HTN, COPD presented to the emergency department due to headache and N/V. Initial Blood pressure was found to be in the 200s systolic. Patients states she noticed patient has been shaking more than is usual with some difficulty speaking. states they recently moved from [place] and have not been able to find a primary care provider. Also states patient ran out of his HTN medication a few months ago and has not been able to obtain refills. A Cardene drip was started for blood pressure control. Patient was experiencing chest pain and was administered SL nitro with relief. Initial 12 LEAD EKG shows sinus rhythm at a rate of 63 with a RBBB and T wave inversions to leads III, V1 through V3 Past medical history: See below Allergies, Meds See chart Review of systems Review of Systems Constitutional: Negative for chills and fever. HENT: Negative for ear discharge and ear pain. + Headache Eyes: Negative for photophobia and discharge. Respiratory: Negative for cough, sputum production and stridor. Cardiovascular: + chest pain and palpitations. Gastrointestinal: Negative for diarrhea and + vomiting. Genitourinary: Negative for frequency. Musculoskeletal: Negative for myalgias. Skin: Negative for rash. Neurological: Negative for focal weakness and seizures. Endo/Heme/Allergies: Negative for polydipsia. Psychiatric/Behavioral: Negative for hallucinations. Vitals see chart PHYSICAL EXAMINATION GENERAL: The patient is alert and oriented*3, Ill appearing HEENT: Nonicteric sclerae, non traumatic HEART: Regular rate and rhythm with no murmurs LUNGS: Clear to auscultation bilaterally ABDOMEN: No acute issues, non tender GENITAL, RECTAL: deferred SKIN: No rash NEUROLOGIC: NFND, mild dysarthria EXTREMITIES: No edema ASSESSMENT CHEST PAIN Unable to fully describe pain Initial 12 LEAD EKG shows sinus rhythm at a rate of 63 with a RBBB and T wave inversions to leads III, V1 through V3 HYPERTENSIVE EMERGENCY Initial BP >200 systolic Cardene drip CORE MEASURES Pending OTHER MEDICAL PROBLEMS Reviewed PLAN 12/17/2024 Echocardiogram will be ordered Continue with serial troponin enzymes Continue Cardene drip for now Continue with stroke workup ATTESTATION Case discussed with JUAN Hernandez Dec 17, 2024 18:43
[2024-12-17] MEDS ORDERED: MONT-39 PO (20:08)
[2024-12-17] MEDS ORDERED: LISI20TA24 PO (20:08)
[2024-12-17] MEDS ORDERED: ATOR40TA69 PO (20:08)
[2024-12-17] MEDS ORDERED: AMLO-258 PO (20:08)
[2024-12-17] MEDS ORDERED: OXYC10TA48 PO (20:08)
[2024-12-17] MEDS ORDERED: CYCL-309 PO (20:08)
[2024-12-17] MEDS ORDERED: GABA-529 PO (20:08)
[2024-12-17] MEDS ORDERED: PANT40TA54 PO (20:08)
[2024-12-17] MEDS ORDERED: SIME80TA12 PO (20:08)
[2024-12-17] MEDS ORDERED: ATEN50TA PO (20:08)
[2024-12-17] MEDS ORDERED: TRAZ-185 PO (20:08)
[2024-12-17] MEDS ORDERED: SERT-440 PO (20:08)
--- NOTE | 2024-12-17 20:52 | HMCIMG ---
EXAM: CTA Head and Neck with Intravenous Contrast. CLINICAL HISTORY: HTN emergency, severe headache. TECHNIQUE: Axial CTA images of the head and neck were performed with and without intravenous contrast in the arterial phase. Coronal and sagittal reformatted images were generated and reviewed. 3-D reformatted images generated on an independent workstation were also reviewed. NASCET criteria were used in the assessment of stenosis. COMPARISON: None provided. FINDINGS: VASCULATURE:NECK: COMMON CAROTID ARTERIES No significant stenosis. No dissection or occlusion. Mild atherosclerotic wall calcifications in both carotid bulbs with less than 20% stenosis. EXTERNAL CAROTID ARTERIES Patent. INTERNAL CAROTID ARTERIES No stenosis by NASCET criteria. No dissection or occlusion. There is tortuosity and medialization of the right proximal cervical ICA. Mild atherosclerotic wall calcifications in the proximal left cervical ICA. Mild non-obstructive atherosclerotic wall calcifications in both cavernous ICA with less than 20% stenosis. VERTEBRAL ARTERIES No significant stenosis. No dissection or occlusion. HEAD: ANTERIOR CEREBRAL ARTERIES No significant stenosis. No occlusion. No aneurysm. MIDDLE CEREBRAL ARTERIES No significant stenosis. No occlusion. No aneurysm. POSTERIOR CEREBRAL ARTERIES No significant stenosis. No occlusion. No aneurysm. BASILAR ARTERY No significant stenosis. No occlusion. No aneurysm. OTHER: SOFT TISSUES No acute finding. BONES No acute osseous abnormality. IMPRESSION: Unremarkable CTA of the head and neck except for atherosclerotic wall calcifications as described. /Tyler
[2024-12-17] MEDS ORDERED: FAMOTIDINE 20MG VIAL IV SCH (21:00)
--- NOTE | 2024-12-17 21:15 | NUR ---
STRAIGHT CATH PT UNABLE TO VOID BLADDER WAS SCANNED AND >790ML NOTED. SONJA BROOM HANDLE DIPPER IN UNITS ORDER TO STRAIGHT CATH WAS RECEIVED AND PT WAS STRAIGHT CATH SOME RESISTANCE NOTED DURING INSERTION AND 750ML CLEAR YELLOW URINE WAS OBTAINED. WHEN REMOVING CATHETER SMALL AMOUNT OF BLOOD NOTED ON TIP OF CATHETER. PT TOLERATED WELL DENIED AND PAIN. WILL CONTINUE TO MONITOR.
[2024-12-17 21:23] LABS: CREATINE KINASE, TOTAL 43 U/L (21-232)
--- NOTE | 2024-12-17 21:40 | NUR ---
CRITICAL LAB [facility]ONIN CALLED TO [facility] C[facility]Y SENT MESSAGE PENDING CALL BACK. Addendum: 12/18/24 at 0733 by GRZEGORZ THRASHER RN RN PT WITH OUT CHEST PAIN OR SHORTNESS OF BREATH.
[2024-12-17] MEDS: ZOSYN 3.375GM +NS 50ML IVPB SCH (23:08)
[2024-12-18] VITALS (94 sets, daily range): BP systolic 127–206; BP diastolic 61–114; PULSE 57–94; RESP 10–71; TEMP 97.7–99; O2SAT 94–97
--- NOTE | 2024-12-18 05:49 | EKG ---
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
--- NOTE | 2024-12-18 06:00 | HMCIMG ---
EXAMINATION: DUPLEX ULTRASOUND EXAMINATION OF THE BILATERAL CAROTID AND VERTEBRAL ARTERIES. CLINICAL HISTORY: To assess for carotid artery stenosis. COMPARISON: None provided. TECHNIQUE: Real-time ultrasound scan of the bilateral carotid and vertebral arteries, 2-D grayscale, with color Doppler flow and spectral waveform analysis. FINDINGS: Color and spectral Doppler interrogation of the carotid vessels on the right demonstrate peak systolic velocities as follows: CCA (Proximal, mid, and distal): 94, 91, and 86 cm/s respectively. Bulb: 57 cm/s. ECA: 298 cm/s. ICA (Proximal, mid, and distal): 90, 98, and 107 cm/s respectively. Vertebral artery demonstrates antegrade flow: 93 cm/s. Right ICA/CCA ratio: 1.1 Peak systolic velocities on the left are as follows: CCA (Proximal, mid, and distal): 104, 91, and 85 cm/s respectively. Bulb: 106 cm/s. ECA: 284 cm/s. ICA (Proximal, mid, and distal): 83, 140, and 226 cm/s respectively. Vertebral artery demonstrates antegrade flow: 68 cm/s. Left ICA/CCA ratio: 2.2 Both the common carotid arteries and their branches reveal mild intimal thickening. There are calcified plaques in the bilateral carotid bulb and right distal carotid artery without significant stenosis. There is kinking of the left internal carotid artery. There are raised velocities in the bilateral external carotid and left distal internal carotid arteries. IMPRESSION: Mild intimal thickening in the bilateral carotid arteries and their branches. Calcified plaques in the bilateral carotid bulb and right distal carotid artery without significant stenosis. Raised velocities in the bilateral external carotid and left distal internal carotid arteries. Left ICA/CCA ratio is 2.2. Recommend CT/MR angiogram. /Tatamy
--- NOTE | 2024-12-18 06:01 | HMCIMG ---
EXAMINATION: ULTRASOUND EXAMINATION OF THE KIDNEYS WITH SPECTRAL DOPPLER OF THE RENAL VESSELS. CLINICAL HISTORY: Hypertension emergency. COMPARISON: None. TECHNIQUE: Grayscale and color ultrasound images of the kidneys, and spectral Doppler of the renal arteries are submitted. FINDINGS: The right kidney is smaller in caliber, measures 5.3 x 2.6 x 3.2 cm and the left kidney measures 9.3 x 4.1 x 4.6 cm in craniocaudal, AP, and transverse dimensions respectively. There is renal cortical thinning, and increased cortical echogenicity. There is no renal calculus, mass, or hydronephrosis. The left kidney is normal in caliber, measures 9.3 x 4.1 x 4.6 cm. There is normal renal cortical thickness, and cortical echogenicity. There is no renal calculus, mass, or hydronephrosis Right The right main renal and intra renal arteries are not well visualized. Left Peak systolic velocity within the distal main left renal artery is 127 cm/s (resistive index of 0.71). The proximal and mid segments are obscured by overlying bowel gas. Peak systolic velocities within the left intrarenal upper, mid, and lower pole arteries are 55, 66, and 56 cm/s respectively (resistive index of 0.67, 0.61, and 0.63). Peak systolic velocity within the abdominal aorta at the level of the renal arteries is 157 cm/s Left renal to aortic ratio: 0.8 IMPRESSION: There is no left renal arterial stenosis by measurement criteria. Atrophic right kidney. /Niko
[2024-12-18] MEDS: MAGNESIUM 2GM PREMIX 50ML 50 ML IV SCH (08:20)
[2024-12-18] MEDS: FAMOTIDINE 20MG TAB PO SCH (08:20)
--- NOTE | 2024-12-18 09:33 | HMCSR ---
APPROVED REPORT EXAM: Two-dimensional and M-mode echocardiogram with Doppler and color Doppler. INDICATION ICD: Hypertension emergency 2D Dimensions RVDd 3.7 cm LVEF(%) 64.4 (>50%) LVED Vol(simp.) 76.0 mL IVSd 1.4 (0.7-1.1cm) FS(%) 35 % LVES Vol(simp.) 27.0 mL LVDd 4.2 (3.8-5.6cm) LA (2D) 4.9 (1.6-4.0cm) LVEF(%, simp.) 65 % PWd 1.3 (0.7-1.1cm) Ao Root(2D) 3.2 (2.0-3.7cm) LA ESV INDEX (BP) 32.40 mL/m2 IVSs 1.6 cm LVOT diam 2.1 (1.8-2.4cm) LVDs 2.7 (2.5-4.0cm) PWs 2.0 cm Deformation Strain Apical 4 -17.9 % Apical 2 -17.5 % Apical 3 -15.7 % Global Strain -17.0 % M-Mode Dimensions EPSS 0.4 cm LA (MM) 5.1 (1.6-4.0cm) Ao Root(MM) 3.1 (2.0-3.7cm) Aortic Valve AoV Vmax 2.3 m/s Ao Peak GR 20.3 mmHg LVOT Vmax 1.3 m/s AoV VTI 0.4 m Ao Mean GR 10.7 mmHg LVOT VTI 0.30 m KITTY (VMAX) 1.96 cm2 KITTY (VTI) 2.5 cm2 Mitral Valve MV E Vmax 52.9 cm/s DECEL Time 238 ms MV A Vmax 68.5 cm/s P 1/2 T 41 ms E/A ratio 0.8 MVA (PHT) 5.4 cm2 TDI E/E' Medial 9.9 E/E' Lateral 7.0 Medial E' Peak V 5.34 cm/s Lateral E' Peak V 7.54 cm/s Pulmonary Valve PV Vmax 1.5 m/s PI End Cara. Rolan 107.3 cm/s PV Mean GR 3.5 mmHg PV Peak GR 8.6 mmHg Tricuspid Valve TR Vmax 2.5 m/s RAP (EST) 3 mmHg RVSP 29.0 mmHg TR Peak GR 26.0 mmHg Left Ventricle The left ventricle is normal size. GLS -17.0% Moderate concentric left ventricular hypertrophy. The LVEF is > 65%. Normal diastolic function Right Ventricle The right ventricle is normal size. The right ventricular systolic function is normal. Atria The left atrium size is normal. The right atrium size is normal. Aortic Valve The aortic valve is trileaflet thickened. No aortic regurgitation is present. There is no aortic valvular stenosis. Mitral Valve The mitral valve is mildly thickened. There is trace of mitral valve regurgitation noted. There is no mitral valve stenosis. Tricuspid Valve The tricuspid valve is normal in structure. There is no tricuspid valve regurgitation noted. Pulmonic Valve The pulmonary valve is normal in structure. There is trace of pulmonic valvular regurgitation. Great Vessels The aortic root is normal in size. The IVC is normal in size and collapses >50% with inspiration. Pericardium There is no pericardial effusion. Other Information Quality : Adequate Conclusion The LVEF is > 65%. Normal diastolic function Moderate concentric left ventricular hypertrophy. The left ventricle is normal size. GLS -17.0% The aortic valve is trileaflet thickened. The mitral valve is mildly thickened. Normal pulmonary pressures Study quality was adequate
[2024-12-18 10:02] LABS: IMMATURE GRANULOCYTE ABSOLUTE 0.03 K/uL (0-1); NUCLEATED RED BLOOD CELLS 0.0 % (0.0-0.19); PLATELET COUNT (AUTO) 264 K/uL (130-400); RED BLOOD CELL COUNT(AUTO) 3.68 MIL/uL (4.50-6.20); RED CELL DISTRIBUTION WIDTH 17.1 % (11.0-15.5); WHITE BLOOD COUNT (AUTO) 8.0 K/uL (4.8-10.8)
--- NOTE | 2024-12-18 10:10 | NUR ---
C/O CHEST PRESSURE S/P COUGHING EPISODE. 12 LEAD EKG COMPLETED AND VIEWED BY DR NICOLE. NO NOTED CHANGES. ORDER RECEIVED FOR TESSALMAYCO ARROYO.
[2024-12-18 10:20] LABS: ASPARTATE AMINOTRANSFERASE 14.0 U/L (10-37); CREATINE KINASE, TOTAL 85.0 U/L (21-232); CREATININE 1.4 mg/dL (0.5-1.3); GLOMERULAR FILTR. RATE CALC 50.0 mL/min (>90); GLUCOSE,RANDOM 97.0 mg/dL (70-105); SODIUM SERUM 138.0 mmol/L (136-145); TOTAL PROTEIN, SERUM 6.0 g/dL (6.0-8.3); UREA NITROGEN, BLOOD 13.0 mg/dL (7-18)
--- NOTE | 2024-12-18 11:16 | NUR ---
MRI FROM [id number]
[2024-12-18] MEDS ORDERED: BENZONATATE 100 MG CAPSULE PO PRN (11:30)
[2024-12-18] MEDS: ATENOLOL 50 MG TABLET PO SCH (12:18)
[2024-12-18] MEDS: LISINOPRIL 20 MG TABLET PO SCH (12:18)
[2024-12-18] MEDS: amLODIPine 5 MG TAB PO SCH (12:19)
[2024-12-18] MEDS ORDERED: PHARMACY COMMUNICATION MISC ONE (12:30)
--- NOTE | 2024-12-18 14:03 | PN ---
[facility] PROGRESS NOTE Date Patient Seen: Dec 18, 2024 Time of Visit: 14:01 Supervising Physician: Dr Antony Grady Primary Care Physician: [Patient does not remember the neam- relocated here from [facility] ] Outpatient Specialists: [ ] Inpatient Consults: [[facility] team for ICU management on Cardene drip ] PROBLEM LIST: Hypertensive emergency-POA Possible hypertensive encephalopathy-POA Intractable headache-POA Persistent diarrhea-POA Intractable vomiting-POA ALEAH-POA Hypomagnesemia-POA Hyperlactatemia-POA Lung nodules-POA Small left lobe hepatic cyst-POA Medical goo-vihvkpglmo-GAI Tremors on the lips and arms, denies DX of parkinsons' disease-POA RLS Primary HTN COPD, not on exacerbation HLD Arthritis GERD Mood disorder Chronic pain Mild dementia INTERVAL HISTORY: Patient was seen and examined, patient resting comfortably in bed, family at bedside. Patient with no deficits. He does have some memory issues which I believe is his baseline We have started his home meds, we will wean off the Cardene drip Imaging revealed possible left internal carotid artery stenosis, patient pending an MRA this morning His BP parameters she will be 160 to 180s. Discussion with nursing we will we reviewed patient's home meds, we resumed appropriate antihypertensives. We talked about his parameters Patient is afebrile, nursing reports no acute events overnight Plan is to follow cardiology recs BP parameters Resume home antihypertensives Follow MRA results Neurovascular checks Total critical care time spent 41 minutes, this time excludes any procedures or educational times spent. REVIEW OF SYSTEMS: 12 point ROS reviewed with patient. Pertinent positives mentioned above. Otherwise negative. PHYSICAL EXAM: GENERAL: alert, weak, awake oriented x 3 HEENT: EOMI, Sclera non icteric, moist mucosa, tremors' on the lips NECK: Supple, no JVD, trachea midline LUNGS: Clear breath sounds bilaterally. No wheezes HEART: Regular rate and rhythm. Normal S1 and S2, without murmurs ABD: Abdomen soft, nontender. Bowel sounds present EXT: No clubbing cyanosis or edema, tremors on the arms NEURO: Alert and oriented to person, follows commands Vital Signs (last 8hr) Date Time Temp Pulse Resp B/P (MAP) Pulse Ox O2 Delivery O2 Flow Rate FiO2 12/18/24 13:30 65 20 165/81 (109) 96 12/18/24 13:15 64 18 156/87 (110) 96 12/18/24 13:00 61 19 176/84 (114) 96 12/18/24 12:45 63 18 177/83 (114) 98 12/18/24 12:30 64 17 170/86 (114) 96 12/18/24 12:18 73 168/70 12/18/24 12:15 67 15 181/84 (116) 95 12/18/24 12:00 72 17 168/80 (109) 97 12/18/24 12:00 98.1 12/18/24 12:00 94 Room Air* 0 21 12/18/24 11:45 71 17 168/79 (108) 97 12/18/24 11:30 67 16 165/78 (107) 96 12/18/24 11:15 73 16 191/78 (115) 98 12/18/24 11:00 73 18 200/88 (125) 97 12/18/24 10:45 70 20 159/76 (103) 97 12/18/24 10:00 72 20 179/77 (111) 91 12/18/24 09:45 68 12 180/74 (109) 94 12/18/24 09:30 73 19 161/79 (106) 94 12/18/24 09:15 70 19 168/78 (108) 95 12/18/24 09:00 72 20 181/75 (110) 96 12/18/24 08:45 71 18 166/110 (128) 96 12/18/24 08:30 70 19 169/76 (107) 94 12/18/24 08:15 76 20 170/74 (106) 93 12/18/24 08:00 73 13 158/73 (101) 94 12/18/24 08:00 94 Room Air* 0 21 12/18/24 08:00 99.0 71 16 171/78 94 Room Air 21 12/18/24 07:45 73 19 168/76 (106) 94 12/18/24 07:30 71 14 165/72 (103) 94 12/18/24 07:15 72 16 163/79 (107) 94 12/18/24 07:00 71 15 171/78 (109) 94 12/18/24 06:45 73 18 172/75 (107) 94 12/18/24 06:30 77 19 169/72 (104) 95 12/18/24 06:26 72 18 12/18/24 06:15 71 20 171/82 (111) 99 LABS: Hematology Labs: Test 12/18/24 09:36 12/17/24 13:54 Range/Units White Blood Count 8.0 4.8-10.8 K/uL Red Blood Count 3.68 #L 4.50-6.20 MIL/uL Hemoglobin 10.0 #L 14.0-18.0 g/dL Hematocrit 31.0 #L 42-54 % Mean Corpuscular Volume 84.2 79-99 fL Mean Corpuscular Hemoglobin 27.2 27.0-33.0 pg Mean Corpuscular Hemoglobin Concent 32.3 32.0-36.0 g/dL Red Cell Distribution Width 17.1 H 11.0-15.5 % Platelet Count 264 130-400 K/uL Mean Platelet Volume 9.7 7.5-10.5 fL Immature Granulocyte % (Auto) 0.4 0-1 % Neutrophils (%) (Auto) 73.7 40.0-77.0 % Lymphocytes (%) (Auto) 15.1 L 21.0-51.0 % Monocytes (%) (Auto) 10.0 3.0-13.0 % Eosinophils (%) (Auto) 0.4 0.0-8.0 % Basophils (%) (Auto) 0.4 0.0-5.0 % Neutrophils # (Auto) 5.9 1.8-7.7 K/uL Lymphocytes # (Auto) 1.2 1.0-4.8 K/uL Monocytes # (Auto) 0.8 0.1-1.0 K/uL Eosinophils # (Auto) 0.03 0.00-0.70 K/uL Basophils # (Auto) 0.03 0.00-0.20 K/uL Absolute Immature Granulocyte (auto 0.03 0-1 K/uL Nucleated Red Blood Cells 0.0 0.0-0.19 % Erythrocyte Sedimentation Rate 11 0-20 MM/HR Chemistry Labs: Test 12/18/24 09:36 12/17/24 17:14 12/17/24 13:54 Range/Units Sodium Level 138 136-145 mmol/L Potassium Level 3.8 3.5-5.1 mmol/L Chloride Level 105 101-111 mmol/L Carbon Dioxide Level 27 21-32 mmol/L Blood Urea Nitrogen 13 7-18 mg/dL Creatinine 1.4 H 0.5-1.3 mg/dL Glomerular Filtration Rate Calc 50 >90 mL/min Random Glucose 97 70-105 mg/dL Total Calcium 8.2 L 8.5-10.1 mg/dL Total Bilirubin 0.7 0.2-1.0 mg/dL Aspartate Amino Transf (AST/SGOT) 14 10-37 U/L Alanine Aminotransferase (ALT/SGPT) 14 # 12-78 U/L Alkaline Phosphatase 84 50-136 U/L Total Creatine Kinase 85 # 21-232 U/L Troponin I High Sensitivity 136.4 *H 4-75 ng/L Total Protein 6.0 # 6.0-8.3 g/dL Albumin 3.2 #L 3.5-5.0 g/dL Lactic Acid Level 1.9 0.8-2.5 mmol/L Magnesium Level 1.60 L 1.80-2.40 mg/dL Lactate Dehydrogenase 113 81-234 U/L C-Reactive Protein, Quantitative 2.40 0.5-3.0 mg/L B-Type Natriuretic Peptide 126 H 0-100 pg/mL Lipase 31 16-77 U/L Procalcitonin < 0.05 L 0.05-0.5 ng/mL Coagulation Labs: Test 12/17/24 13:54 Range/Units Prothrombin Time 10.7 9.6-11.6 SEC Prothromb Time International Ratio 1.01 0.85-1.15 Activated Partial Thromboplast Time 23.1 L 26.3-35.5 SEC DIAGNOSTICS / RADIOLOGY RESULTS: [ ] PLAN NEURO: Minimize central acting medications as possible. Fall Precautions. Well lighted room through the day and minimize interruptions through the night to prevent acute delirium. PULMONARY: Supplemental 02 as needed Titrate Fio2 to keep Spo2 > or = 90% DuoNebs and CPT as needed IS hourly while awake for pulmonary hygiene Out of bed to chair as tolerated VAP Bundle Vent/BIPAP Settings: [ ] Driving pressure: [ ] P Plat: [ ] Static C: [ ] Static R: [ ] P/F Ratio: [ ] CARDIOVASCULAR: Follow hemodynamics. Titrate vasopressor to keep MAP >65 or systolic blood pressure >95mmHg DRIPS: [Cardene drip ] LINES: [ ] GI & NUTRITION: Continue nutritional support Aspirations precautions Prokinetic agents and laxatives as needed KIDNEYS & ELECTROLYTES: Strict monitoring of intake and output Daily weights Avoid nephrotoxic agents Monitor electrolytes and replace as needed Goal urine output of 30mL/hr or 0.5mL/kg/hr Urine output: [ ] Fluid Balance: [ ] ENDOCRINE: Maintain blood glucose between 100-180 at all times. Insulin sliding scale for blood glucose management INFECTIOUS DISEASE: Trend temperature. Taylor-culture if febrile. Micro: [ ] Antibiotics: [ ] HEMATOLOGY & COAGULATION: Monitor H&H. Keep Hgb > 7 Transfuse 1 unit of PRBC for Hgb < 7 Transfuse 1 pack of platelets of platelets < 20, 000 Watch for any signs and symptoms of bleeding SKIN: Pressure ulcer prevention per facility protocol Rehab: PT/OT Prophylaxis: GI: DVT: [ ] Code Status: Full Resuscitation Disposition: [ ] Case was discussed and seen with my supervising physician. The above plan was formulated and agreed upon. SONJA HANEY PAC Dec 18, 2024 14:03
--- NOTE | 2024-12-18 14:20 | NUR ---
[facility] ICU Skin Assessment: Patient assessed by wound healing team. Patient with no wounds or skin breakdown noted. Assessment and recommendations provided to primary nurse. Education provided.
--- NOTE | 2024-12-18 15:21 | HMCIMG ---
NAME OF THE EXAM:MRI BRAIN WITHOUT INTRAVENOUS CONTRAST CLINICAL INFORMATION: Severe headache; hypertensive emergency; rule out acute cerebrovascular accident. TECHNIQUE: Multiplanar, multisequence non-contrast magnetic resonance imaging of the brain including DWI/ADC, FLAIR, T2-weighted, T1-weighted, and susceptibility-weighted imaging (stroke protocol). CONTRAST: No intravenous contrast administered. COMPARISON:None provided. FINDINGS: BRAIN: No restricted diffusion to suggest acute infarct and no mass effect or acute intracranial hemorrhage. VENTRICLES AND EXTRA-AXIAL SPACES: Ventricles and sulci are age-appropriate in size with no extra-axial fluid collection. BRAINSTEM AND CEREBELLUM: Normal signal and morphology without focal abnormality. VASCULAR FLOW VOIDS: Expected arterial and dural venous sinus flow voids are preserved. ORBITS: No intraorbital abnormality. PARANASAL SINUSES AND MASTOID AIR CELLS: Right maxillary sinus mucosal polyp is present and mastoid air cells are unopacified. WHITE MATTER: Scattered periventricular and subcortical T2/FLAIR hyperintensities consistent with chronic microangiopathic change. IMPRESSION: * No acute infarct, hemorrhage, or mass effect on non-contrast stroke-protocol MRI. * Mild chronic microangiopathic white-matter changes consistent with small-vessel ischemia; correlate with vascular risk factors. * Right maxillary sinus mucosal polyp; manage conservatively unless symptomatic. /Howard
[2024-12-18] MEDS: ENOXAPARIN SODIUM 60 MG/0.6 ML SQ SCH (15:38)
--- NOTE | 2024-12-18 17:26 | PN ---
CONSULT NOTE: CARDIOLOGY Reason for consult: Chest pain HPI/story at presentation: 66 year old male with a past medical history significant for HTN, COPD presented to the emergency department due to headache and N/V. Initial Blood pressure was found to be in the 200s systolic. Patients states she noticed patient has been shaking more than is usual with some difficulty speaking. states they recently moved from [place] and have not been able to find a primary care provider. Also states patient ran out of his HTN medication a few months ago and has not been able to obtain refills. A Cardene drip was started for blood pressure control. Patient was experiencing chest pain and was administered SL nitro with relief. Initial 12 LEAD EKG shows sinus rhythm at a rate of 63 with a RBBB and T wave inversions to leads III, V1 through V3 Past medical history: See below Allergies, Meds See chart Review of systems Review of Systems Constitutional: Negative for chills and fever. HENT: Negative for ear discharge and ear pain. + Headache Eyes: Negative for photophobia and discharge. Respiratory: Negative for cough, sputum production and stridor. Cardiovascular: + chest pain and palpitations. Gastrointestinal: Negative for diarrhea and + vomiting. Genitourinary: Negative for frequency. Musculoskeletal: Negative for myalgias. Skin: Negative for rash. Neurological: Negative for focal weakness and seizures. Endo/Heme/Allergies: Negative for polydipsia. Psychiatric/Behavioral: Negative for hallucinations. Vitals see chart PHYSICAL EXAMINATION GENERAL: The patient is alert and oriented*3, Ill appearing HEENT: Nonicteric sclerae, non traumatic HEART: Regular rate and rhythm with no murmurs LUNGS: Clear to auscultation bilaterally ABDOMEN: No acute issues, non tender GENITAL, RECTAL: deferred SKIN: No rash NEUROLOGIC: NFND, mild dysarthria EXTREMITIES: No edema ASSESSMENT CHEST PAIN Unable to fully describe pain Initial 12 LEAD EKG shows sinus rhythm at a rate of 63 with a RBBB and T wave inversions to leads III, V1 through V3 HYPERTENSIVE EMERGENCY Initial BP >200 systolic Cardene drip CORE MEASURES Pending OTHER MEDICAL PROBLEMS Reviewed PLAN 12/17/2024 Echocardiogram will be ordered Continue with serial troponin enzymes Continue Cardene drip for now Continue with stroke workup 12/18/2024 Patient more awake and alert today Serial troponin level with some slight elevation at 145-->136 Echocardiogram results showing EF at 65% Will start lovenox 1mg/kg SQ BID oral antihypertensive meds have been started and will continue to wean off cardene drip ATTESTATION Case discussed with Dr. Martines Vitals/Labs Vital Signs Date Time Temp Pulse Resp B/P (MAP) Pulse Ox O2 Delivery O2 Flow Rate FiO2 12/18/24 16:30 62 20 183/82 (115) 95 12/18/24 16:00 98.2 12/18/24 16:00 Room Air* 0 21 Laboratory Tests 12/18/24 09:36 Medications Current Medications Hydralazine HCl 10 mg ONCE ONCE IV Last administered on 12/17/24at 14:12; Start 12/17/24 at 14:30; Stop 12/17/24 at 14:31; Status DC Piperacillin Sod/ Tazobactam Sod 3.375 gm ONCE ONCE IV Last administered on 12/17/24at 14:57; Start 12/17/24 at 14:30; Stop 12/17/24 at 14:31; Status DC Sodium Chloride 1,000 ml @ 0 mls/hr ONCE ONCE IV Last administered on 12/17/24at 14:57; Start 12/17/24 at 15:00; Stop 12/17/24 at 15:01; Status DC Labetalol HCl 10 mg ONCE ONCE IV Last administered on 12/17/24at 14:54; Start 12/17/24 at 15:00; Stop 12/17/24 at 15:01; Status DC Morphine Sulfate 2 mg ONCE ONCE IVP Last administered on 12/17/24at 15:27; Start 12/17/24 at 15:30; Stop 12/17/24 at 15:31; Status DC Ondansetron HCl 4 mg ONCE ONCE IVP Last administered on 12/17/24at 15:27; Start 12/17/24 at 15:30; Stop 12/17/24 at 15:31; Status DC Nicardipine HCl 25 mg/Sodium Chloride 250 ml @ 0 mls/hr PROTOCOL IV Last administered on 12/18/24at 00:23; Start 12/17/24 at 15:30; Stop 01/16/25 at 15:29 Nicardipine HCl 25 mg STK-MED ONCE IV Last administered on 12/17/24at 15:23; Start 12/17/24 at 15:17; Stop 12/17/24 at 15:17; Status DC Acetaminophen 1,000 mg ONCE ONCE IVPB Last administered on 12/17/24at 17:07; Start 12/17/24 at 16:00; Stop 12/17/24 at 16:01; Status DC Ketorolac Tromethamine 15 mg ONCE ONCE IV Last administered on 12/17/24at 16:29; Start 12/17/24 at 16:00; Stop 12/17/24 at 16:01; Status DC Magnesium Sulfate 50 ml @ 0 mls/hr PROTOCOL IV Last administered on 12/18/24at 08:20; Start 12/17/24 at 16:00; Stop 01/16/25 at 15:59 Acetaminophen 650 mg Q6H PRN PO; Start 12/17/24 at 16:00; Stop 01/16/25 at 15:59 Ondansetron HCl 4 mg Q6H PRN IVP Last administered on 12/18/24at 11:09; Start 12/17/24 at 16:00; Stop 01/16/25 at 15:59 Famotidine 20 mg Q48H IV; Start 12/17/24 at 21:00; Stop 12/17/24 at 16:03; Status DC Albuterol 1 udvial Q6H PRN IH; Start 12/17/24 at 16:00; Stop 01/16/25 at 15:59 Sodium Chloride 1,000 ml @ 75 mls/hr [id number] IV Last administered on 12/17/24at 16:29; Start 12/17/24 at 16:00; Stop 01/16/25 at 15:59 Budesonide 0.5 mg BIDRESP IH Last administered on 12/18/24at 06:36; Start 12/17/24 at 18:00; Stop 01/16/25 at 17:59 Albuterol 1 udvial Q6H PRN IH; Start 12/17/24 at 16:00; Stop 12/17/24 at 16:02; Status DC Hydromorphone HCl 0.5 mg Q6H PRN IVP; Start 12/17/24 at 16:30; Stop 12/22/24 at 16:29 Piperacillin Sod/ Tazobactam Sod 3.375 gm Q8H IVPB Last administered on 12/18/24at 15:11; Start 12/17/24 at 23:00; Stop 12/27/24 at 22:59 Nitroglycerin 0.4 mg AD PRN SL; Start 12/17/24 at 16:30; Stop 01/16/25 at 16:29 Atorvastatin Calcium 40 mg HS PO Last administered on 12/17/24at 19:41; Start 12/17/24 at 21:00; Stop 01/16/25 at 20:59 Iohexol 35,000 mg STK-MED ONCE IV; Start 12/17/24 at 17:21; Stop 12/17/24 at 17:21; Status DC Iohexol 35,000 mg STK-MED ONCE IV; Start 12/17/24 at 18:15; Stop 12/17/24 at 18:16; Status DC Clonidine HCl 0.1 mg ONCE ONCE PO Last administered on 12/17/24at 23:38; Start 12/17/24 at 23:00; Stop 12/17/24 at 23:10; Status DC Famotidine 20 mg DAILY PO Last administered on 12/18/24at 08:20; Start 12/18/24 at 09:00; Stop 01/17/25 at 08:59 Benzonatate 100 mg Q8H PRN PO; Start 12/18/24 at 11:30; Stop 01/17/25 at 11:29 Atenolol 50 mg DAILY PO Last administered on 12/18/24at 12:18; Start 12/18/24 at 12:30; Stop 01/17/25 at 12:29 Lisinopril 20 mg DAILY PO Last administered on 12/18/24at 12:18; Start 12/18/24 at 12:30; Stop 01/17/25 at 12:29 Amlodipine Besylate 10 mg DAILY PO Last administered on 12/18/24at 12:19; Start 12/18/24 at 12:30; Stop 01/17/25 at 12:29 Pharmacy Profile Note 1 each ONCE ONCE MISC; Start 12/18/24 at 12:30; Stop 12/18/24 at 12:14; Status DC Hydralazine HCl 10 mg Q6H PRN IV; Start 12/18/24 at 12:30; Stop 01/17/25 at 12:29 Labetalol HCl 10 mg Q6H PRN IV; Start 12/18/24 at 12:30; Stop 01/17/25 at 12:29 Enoxaparin Sodium 1 unit Q24H SQ; Start 12/18/24 at 14:30; Stop 12/18/24 at 14:31; Status DC Enoxaparin Sodium 60 mg Q24H SQ Last administered on 12/18/24at 15:38; Start 12/18/24 at 15:00; Stop 01/17/25 at 14:[address] [facility] Dec 18, 2024 17:26
--- NOTE | 2024-12-18 18:15 | PN ---
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 Patient states that he recently moved to [place] about a month ago. He is originally from [facility]. He has underlying history of hypertension and has been maintained on multiple antihypertensives as outpatient. He has been maintained on lisinopril 20 mg daily as well as amlodipine 10 mg daily. Since moving to [place], he has not taken any antihypertensives for about a month due to problems establishing with a primary care physician as outpatient. Over the last four days, he has been having malaise, subjective fevers, chills, headache, nausea. He has been having diarrhea and reports having had about six loose stools today. Headache has been progressing and was severe in intensity and patient rates it as 10/10. Reports having some photophobia. Denies any neck pain or stiffness. Denies having previous history of stroke, seizures or epilepsy. Denies previous history of ID. Denies focal weakness of upper or lower extremities. Patient does report having history of COPD and has been maintained on home inhalers. Reports that close to January last year, he had infection of right shoulder prosthesis that was placed about 6-7 years ago with loosening of the s crews. Patient was found to have prosthetic joint infection and received prolonged course of IV antibiotics which was followed by right shoulder reverse arthroplasty in [place]. Patient on bedside interview appears in distress with active nausea, vomiting, severe headache. On presentation to the hospital, patient was found to have blood pressure trending between 200s-220s/100s-130s systolic, noted to be afebrile with T-max of 96.6 F, heart rate of 85. Labs on presentation showed WBC count of 7900, hemoglobin 12.8, platelet count of 311,000. BMP showed sodium of 140, potassium 5.0, BUN of 14, creatinine 0.5, lactic acid of 2.8, magnesium 1.6, initial cardiac troponin 15. Patient underwent CT head without contrast which showed no acute intracranial ab normality with no findings of acute hemorrhage, mass effect or acute territorial infarct. Chest x-ray showed no acute infiltrates, CT abdomen pelvis without contrast showed findings of no acute intra-abdominal or pelvic abnormality. Patient received bolus of NS in the ER along with doses of IV hydralazine and IV labetalol with no improvement of blood pressure, patient was subsequently initiated on Cardene drip. Patient will be admitted to ICU. Patient will be initiated on Cardene drip. Consultation with Neurology will be requested. We will have Cardiology and Intensive Care Service see this patient closely. Patient during his ER stay also started having chest pain, substernal with no associated radiation to the back or the shoulder blade. Patient received a dose of nitroglycerin with improvement of chest pain. We will see how patient progresses in the next 48-72 hours. Condition remains critical, plan of care was discussed with patient and family at bedside and personally discussed patient's case with multiple consultants. 12/18/2024: Patient is seen and evaluated in the room 216. , when examined patient is having the intention tremors. Since the patient is unable to take BP medications since for 1 month, patient presented with hypertensive emergency. Cardiology on the board and continue Cardene drip for blood pressure control. 2D echo ordered. Neurology consultation placed and they assessed it as a headache. Brain MRI revealed mild chronic microangiopathic white matter changes consistent with small-vessel ischemia. Heart healthy diet started. BIS on the board for his hypertensive emergency. REVIEW OF SYSTEMS CONSTITUTIONAL: Fevers, chills, fatigue, malaise NEUROLOGICAL: Severe headache this morning, denies any neck pain or stiffness ENT: No hearing loss, otalgia, otorrhea, rhinitis, rhinorrhea, hoarseness, or sore throat. CARDIOVASCULAR: Reported having substernal chest pressure during ER stay PULMONARY: Denies any shortness of breath, cough, phlegm/sputum, hemoptysis, pleuritic chest pain. SLEEP: Denies morning headaches, daytime somnolence or napping. Denies difficulty falling asleep, staying asleep, waking from sleep. Denies knowledge of snoring. GASTROINTESTINAL: Denies any type of dysphagia to either liquids or solids. Denies nausea, vomiting, pyrosis, early satiety, abdominal pain, diarrhea, constipation, or changes in stool consistency or caliber. Denies coffee-ground emesis, hematemesis, hematochezia, or melanotic stools. GENITOURINARY: Denies frequency, urgency, nocturia, hematuria or incontinence (Storage/Irritative symptoms.) Low urinary stream, straining to void, urinary intermittency or hesitancy, splitting of the voiding stream, terminal dribbling. ENDOCRINOLOGIC: Denies polyuria, polydipsia, polyphagia or heat/cold intolerances. HEMATOLOGIC: Denies thrombophilia/previous clots, or coagulopathy/bleeding disorders. ONCOLOGIC: Denies personal history of malignancy. DERMATOLOGIC: Denies rashes or pruritus. PSYCHIATRIC: Denies any suicidal or homicidal ideation. Denies hallucinations. PHYSICAL EXAM GENERAL APPEARANCE: The patient is awake, alert, appears frail and debilitated, he is vomiting on the stretcher, appears in mild distress NEUROLOGICAL: Cranial nerves II-XII grossly intact. Patient is moving both the upper and lower extremities with no focal deficits, patient is very soft spoken HEENT: Face is symmetric. Pupils are equal and reactive. Extraocular movements are intact. NECK: Supple. No JVD. No thyromegaly. No submental, submandibular, pre- /postauricular, occipital or supraclavicular lymphadenopathy. CHEST: Normal chest expansion. No Telemetry. LUNGS: Absence of any rales, rhonchi or any wheezing. CARDIOVASCULAR: Regular. S1 and S2 normal. No appreciable rubs, murmurs or ga llops. ABDOMEN: Soft, nontender, and nondistended. There is no rebound, voluntary guarding, or rigidity. : Deferred. No Sanz. EXTREMITIES: Non-edematous and not cyanotic. No clubbing. Good capillary refill. SKIN: No skin breakdown. Vital Signs (last 8hr) Date Time Temp Pulse Resp B/P (MAP) Pulse Ox O2 Delivery O2 Flow Rate FiO2 12/18/24 16:30 62 20 183/82 (115) 95 12/18/24 16:15 61 18 178/77 (110) 95 12/18/24 16:00 64 20 162/78 (106) 97 12/18/24 16:00 98.2 12/18/24 16:00 94 Room Air* 0 21 12/18/24 15:45 62 18 180/75 (110) 94 12/18/24 15:30 69 33 143/83 (103) 96 12/18/24 15:15 63 19 176/91 (119) 96 12/18/24 15:00 63 15 171/72 (105) 97 12/18/24 14:45 62 19 176/78 (110) 94 12/18/24 14:30 63 17 176/87 (116) 96 12/18/24 14:15 62 16 187/81 (116) 94 12/18/24 14:00 63 20 167/74 (105) 96 12/18/24 13:45 62 20 172/75 (107) 95 12/18/24 13:30 65 20 165/81 (109) 96 12/18/24 13:15 64 18 156/87 (110) 96 12/18/24 13:00 61 19 176/84 (114) 96 12/18/24 12:45 63 18 177/83 (114) 98 12/18/24 12:30 64 17 170/86 (114) 96 12/18/24 12:18 73 168/70 12/18/24 12:15 67 15 181/84 (116) 95 12/18/24 12:00 72 17 168/80 (109) 97 12/18/24 12:00 98.1 12/18/24 12:00 94 Room Air* 0 21 12/18/24 11:45 71 17 168/79 (108) 97 12/18/24 11:30 67 16 165/78 (107) 96 12/18/24 11:15 73 16 191/78 (115) 98 12/18/24 11:00 73 18 200/88 (125) 97 12/18/24 10:45 70 20 159/76 (103) 97 12/18/24 10:00 72 20 179/77 (111) 91 LABS: Laboratory: Test 12/18/24 09:36 12/17/24 17:14 12/17/24 17:12 12/17/24 13:54 Range/Units White Blood Count 8.0 4.8-10.8 K/uL Red Blood Count 3.68 #L 4.50-6.20 MIL/uL Hemoglobin 10.0 #L 14.0-18.0 g/dL Hematocrit 31.0 #L 42-54 % Mean Corpuscular Volume 84.2 79-99 fL Mean Corpuscular Hemoglobin 27.2 27.0-33.0 pg Mean Corpuscular Hemoglobin Concent 32.3 32.0-36.0 g/dL Red Cell Distribution Width 17.1 H 11.0-15.5 % Platelet Count 264 130-400 K/uL Mean Platelet Volume 9.7 7.5-10.5 fL Immature Granulocyte % (Auto) 0.4 0-1 % Neutrophils (%) (Auto) 73.7 40.0-77.0 % Lymphocytes (%) (Auto) 15.1 L 21.0-51.0 % Monocytes (%) (Auto) 10.0 3.0-13.0 % Eosinophils (%) (Auto) 0.4 0.0-8.0 % Basophils (%) (Auto) 0.4 0.0-5.0 % Neutrophils # (Auto) 5.9 1.8-7.7 K/uL Lymphocytes # (Auto) 1.2 1.0-4.8 K/uL Monocytes # (Auto) 0.8 0.1-1.0 K/uL Eosinophils # (Auto) 0.03 0.00-0.70 K/uL Basophils # (Auto) 0.03 0.00-0.20 K/uL Absolute Immature Granulocyte (auto 0.03 0-1 K/uL Nucleated Red Blood Cells 0.0 0.0-0.19 % Sodium Level 138 136-145 mmol/L Potassium Level 3.8 3.5-5.1 mmol/L Chloride Level 105 101-111 mmol/L Carbon Dioxide Level 27 21-32 mmol/L Blood Urea Nitrogen 13 7-18 mg/dL Creatinine 1.4 H 0.5-1.3 mg/dL Glomerular Filtration Rate Calc 50 >90 mL/min Random Glucose 97 70-105 mg/dL Total Calcium 8.2 L 8.5-10.1 mg/dL Total Bilirubin 0.7 0.2-1.0 mg/dL Aspartate Amino Transf (AST/SGOT) 14 10-37 U/L Alanine Aminotransferase (ALT/SGPT) 14 # 12-78 U/L Alkaline Phosphatase 84 50-136 U/L Total Creatine Kinase 85 # 21-232 U/L Troponin I High Sensitivity 136.4 *H 4-75 ng/L Total Protein 6.0 # 6.0-8.3 g/dL Albumin 3.2 #L 3.5-5.0 g/dL Lactic Acid Level 1.9 0.8-2.5 mmol/L Urine Color LIGHT-YELLOW YELLOW Urine Appearance CLEAR CLEAR Urine pH 7.5 5.0-8.0 Urine Specific Marquez 1.017 1.001-1.031 Urine Protein NEGATIVE NEGATIVE mg/dL Urine Glucose (UA) NEGATIVE NEGATIVE mg/dL Urine Ketones 10 H NEGATIVE mg/dL Urine Occult Blood NEGATIVE NEGATIVE Urine Nitrate NEGATIVE NEGATIVE Urine Bilirubin NEGATIVE NEGATIVE mg/dL Urine Urobilinogen 0.2 0.2-1.0 mg/dL Urine Leukocyte Esterase NEGATIVE NEGATIVE Bertha/uL Urine Random Creatinine 79.58 30-135 mg/dL Urine Random Total Protein 24.5 H 0-11.9 mg/dL Urine Opiates Screen NEGATIVE NEGATIVE Urine Barbiturates Screen NEGATIVE NEGATIVE Urine Phencyclidine Screen NEGATIVE NEGATIVE Urine Amphetamines Screen NEGATIVE NEGATIVE Urine Benzodiazepines Screen NEGATIVE NEGATIVE Urine Cocaine Screen NEGATIVE NEGATIVE Urine Marijuana (THC) Screen NEGATIVE NEGATIVE Erythrocyte Sedimentation Rate 11 0-20 MM/HR Prothrombin Time 10.7 9.6-11.6 SEC Prothromb Time International Ratio 1.01 0.85-1.15 Activated Partial Thromboplast Time 23.1 L 26.3-35.5 SEC Magnesium Level 1.60 L 1.80-2.40 mg/dL Lactate Dehydrogenase 113 81-234 U/L C-Reactive Protein, Quantitative 2.40 0.5-3.0 mg/L B-Type Natriuretic Peptide 126 H 0-100 pg/mL Lipase 31 16-77 U/L Procalcitonin < 0.05 L 0.05-0.5 ng/mL Current Medications Medications (Trade) Dose Ordered Sig/Elie Route PRN Reason Start Time Stop Time Status Last Admin Dose Admin Acetaminophen (TYLenol 325MG TAB) 650 mg Q6H PRN PO MILD PAIN (1-3) 12/17/24 16:00 01/16/25 15:59 Albuterol (DUOneb) 1 udvial Q6H PRN IH SHORTNESS OF BREATH 12/17/24 16:00 12/17/24 16:02 DC Albuterol (DUOneb) 1 udvial Q6H PRN IH SHORTNESS OF BREATH 12/17/24 16:00 01/16/25 15:59 Amlodipine Besylate (NorvASC 5MG TAB) 10 mg DAILY PO 12/18/24 12:30 12/7/25 12:29 12/18/24 12:19 10 MG Atenolol (Atenolol) 50 mg DAILY PO 12/18/24 12:30 01/17/25 12:29 12/18/24 12:18 50 MG Atorvastatin Calcium (LIPItor 40MG) 40 mg HS PO 12/17/24 21:00 01/16/25 20:59 12/17/24 19:41 40 MG Benzonatate (Tessalon 100mg Caps) 100 mg Q8H PRN PO COUGH 12/18/24 11:30 01/17/25 11:29 Budesonide (Pulmicort 0.5 Mg/2ml) 0.5 mg BIDRESP IH 12/17/24 18:00 01/16/25 17:59 12/18/24 06:36 0.5 MG Enoxaparin Sodium (Lovenox (Pharmacy To Dose)) 1 unit Q24H SQ 12/18/24 14:30 12/18/24 14:31 DC Enoxaparin Sodium (Lovenox 60mg) 60 mg Q24H SQ 12/18/24 15:00 01/17/25 14:59 12/18/24 15:38 60 MG Famotidine (Pepcid 20mg Vial) 20 mg Q48H IV 12/17/24 21:00 12/17/24 16:03 DC Famotidine (Pepcid 20mg Tab) 20 mg DAILY PO 12/18/24 09:00 01/17/25 08:59 12/18/24 08:20 20 MG Hydralazine HCl (APRESOLine 20MG INJ) 10 mg Q6H PRN IV ADMINISTER FOR SBP > 180 12/18/24 12:30 01/17/25 12:29 Hydromorphone HCl (DiLAUDid 0.5MG INJ) 0.5 mg Q6H PRN IVP SEVERE PAIN (7-10) 12/17/24 16:30 12/22/24 16:29 Labetalol HCl (TRANdate 20MG SYG) 10 mg Q6H PRN IV IF SBP GREATER THAN 180 12/18/24 12:30 01/17/25 12:29 Lisinopril (Prinivil 20mg) 20 mg DAILY PO 12/18/24 12:30 01/17/25 12:29 12/18/24 12:18 20 MG Magnesium Sulfate 50 ml @ 0 mls/hr PROTOCOL IV 12/17/24 16:00 01/16/25 15:59 12/18/24 08:20 25 MLS/HR Nicardipine HCl 25 mg/Sodium Chloride 250 ml @ 0 mls/hr PROTOCOL IV 12/17/24 15:30 01/16/25 15:29 12/18/24 00:23 50 MLS/HR Nitroglycerin (Nitrostat) 0.4 mg AD PRN SL CHEST PAIN 12/17/24 16:30 01/16/25 16:29 Ondansetron HCl (zoFRAN 4MG INJ) 4 mg Q6H PRN IVP NAUSEA/VOMITING 12/17/24 16:00 01/16/25 15:59 12/18/24 11:09 4 MG Piperacillin Sod/ Tazobactam Sod (Zosyn 3.375gm+NS 50ml) 3.375 gm Q8H IVPB 12/17/24 23:00 12/27/24 22:59 12/18/24 15:11 3.375 GM Sodium Chloride 1,000 ml @ 75 mls/hr [id number] IV 12/17/24 16:00 01/16/25 15:59 12/17/24 16:29 75 MLS/HR DIAGNOSTICS / RADIOLOGY: [place] [address] IMAGING REPORT Signed PATIENT: MARCELLO CRYSTAL MR#: [id number] : 1940 SEX: M AGE: 84 LOCATION: 2CH ORDER 1550 STATUS: ADM IN HOME FOR INCURABLES REPORT#: [id number] SERVICE 1547 REASON: HTN emergency, Dr. Martines to read ORDERING PHYSICIAN: GERALDINE HORN MD PROCEDURE: ECHO CMP - ECHO 2-D COMPLETE APPROVED REPORT EXAM: Two-dimensional and M-mode echocardiogram with Doppler and color Doppler. INDICATION ICD: Hypertension emergency 2D Dimensions RVDd 3.7 cm LVEF(%) 64.4 (>50%) LVED Vol(simp.) 76.0 mL IVSd 1.4 (0.7-1.1cm) FS(%) 35 % LVES Vol(simp.) 27.0 mL LVDd 4.2 (3.8-5.6cm) LA (2D) 4.9 (1.6-4.0cm) LVEF(%, simp.) 65 % PWd 1.3 (0.7-1.1cm) Ao Root(2D) 3.2 (2.0-3.7cm) LA ESV INDEX (BP) 32.40 mL/m2 IVSs 1.6 cm LVOT diam 2.1 (1.8-2.4cm) LVDs 2.7 (2.5-4.0cm) PWs 2.0 cm Deformation Strain Apical 4 -17.9 % Apical 2 -17.5 % Apical 3 -15.7 % Global Strain -17.0 % M-Mode Dimensions EPSS 0.4 cm LA (MM) 5.1 (1.6-4.0cm) Ao Root(MM) 3.1 (2.0-3.7cm) Aortic Valve AoV Vmax 2.3 m/s Ao Peak GR 20.3 mmHg LVOT Vmax 1.3 m/s AoV VTI 0.4 m Ao Mean GR 10.7 mmHg LVOT VTI 0.30 m KITTY (VMAX) 1.96 cm2 KITTY (VTI) 2.5 cm2 Mitral Valve MV E Vmax 52.9 cm/s DECEL Time 238 ms MV A Vmax 68.5 cm/s P 1/2 T 41 ms E/A ratio 0.8 MVA (PHT) 5.4 cm2 TDI E/E' Medial 9.9 E/E' Lateral 7.0 Medial E' Peak V 5.34 cm/s Lateral E' Peak V 7.54 cm/s Pulmonary Valve PV Vmax 1.5 m/s PI End Cara. Rolan 107.3 cm/s PV Mean GR 3.5 mmHg PV Peak GR 8.6 mmHg Tricuspid Valve TR Vmax 2.5 m/s RAP (EST) 3 mmHg RVSP 29.0 mmHg TR Peak GR 26.0 mmHg Left Ventricle The left ventricle is normal size. GLS -17.0% Moderate concentric left ventricular hypertrophy. The LVEF is > 65%. Normal diastolic function Right Ventricle The right ventricle is normal size. The right ventricular systolic function is normal. Atria The left atrium size is normal. The right atrium size is normal. Aortic Valve The aortic valve is trileaflet thickened. No aortic regurgitation is present. There is no aortic valvular stenosis. Mitral Valve The mitral valve is mildly thickened. There is trace of mitral valve regurgitation noted. There is no mitral valve stenosis. Tricuspid Valve The tricuspid valve is normal in structure. There is no tricuspid valve regurgitation noted. Pulmonic Valve The pulmonary valve is normal in structure. There is trace of pulmonic valvular regurgitation. Great Vessels The aortic root is normal in size. The IVC is normal in size and collapses >50% with inspiration. Pericardium There is no pericardial effusion. Other Information Quality : Adequate Conclusion The LVEF is > 65%. Normal diastolic function Moderate concentric left ventricular hypertrophy. The left ventricle is normal size. GLS -17.0% The aortic valve is trileaflet thickened. The mitral valve is mildly thickened. 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 status post extended course of IV antibiotics and repeat shoulder arthroplasty close to 03/2024, POA History of lower back surgery, POA PLAN: Hypertensive emergency, POA * On hydralazine, amlodipine, labetalol * AStarted on IV Cardene drip * Neurology on the board for stroke workup Intention tremor POA * enquired about use of alcohol * Chest pain, POA * Echo results out * Showed left ventricular ejection fraction greater than 65% * Moderate concentric left ventricular hypertrophy Acute infectious gastroenteritis, POA * Ordered stool cultures * On Zosyn ATTESTATION BY PHYSICIAN I have seen and examined the patient. I reviewed the documentation, medical decision making, and treatment plan as noted by the resident physician above. I agree with the findings and plan of care. MARE NICOLE MD, HARSHA MD Dec 18, 2024 18:15
[2024-12-19] VITALS (42 sets, daily range): BP systolic 101–219; BP diastolic 40–97; PULSE 54–71; RESP 13–51; TEMP 97.8–98.7; O2SAT 96–98
--- NOTE | 2024-12-19 02:51 | NUR ---
CRITICAL CARE NOTIFIED MATERIAL CONTROL SUPERVISOR SONJA Henley PATIENT IS AGITATED AND REMOVED ALL CLOTHES AND LEADS, IVs, AND MONITORING EQUIPMENT. PATIENT IS CONFUSED AND REFUSING CARE. EDUCATED PATIENT HE IS IN ICU AND EQUIPMENT AND MEDICATION ARE PART OF HIS CARE PLAN ORDERED BY THE PHYSICIAN. PATIENT STATES IT IS BIZARRE BEING HERE WITH ALL THE EQUIPMENT. MATERIAL CONTROL SUPERVISOR WILL PUT IN ORDERS.
[2024-12-19 05:53] LABS: NUCLEATED RED BLOOD CELLS 0.0 % (0.0-0.19); PLATELET COUNT (AUTO) 267.0 K/uL (130-400); RED BLOOD CELL COUNT(AUTO) 4.08 MIL/uL (4.50-6.20); RED CELL DISTRIBUTION WIDTH 17.1 % (11.0-15.5); WHITE BLOOD COUNT (AUTO) 7.6 K/uL (4.8-10.8)
[2024-12-19 06:46] LABS: ASPARTATE AMINOTRANSFERASE 33.0 U/L (10-37); CREATININE 1.4 mg/dL (0.5-1.3); GLOMERULAR FILTR. RATE CALC 50.0 mL/min (>90); GLUCOSE,RANDOM 93.0 mg/dL (70-105); SODIUM SERUM 138.0 mmol/L (136-145); TOTAL PROTEIN, SERUM 6.6 g/dL (6.0-8.3); UREA NITROGEN, BLOOD 13.0 mg/dL (7-18)
--- NOTE | 2024-12-19 07:12 | NUR ---
PATIENT REFUSED TO BE HOOKED UP TO MONITORING EQUIPMENT. SPOKE WITH SPOUSE SHE WILL COME IN THE MORNING TO CALM HIM DOWN.
--- NOTE | 2024-12-19 10:13 | PN ---
[facility] PROGRESS NOTE Date Patient Seen: Dec 19, 2024 Time of Visit: 10:09 Supervising Physician: Dr Antony Grady Primary Care Physician: [Patient does not remember the neam- relocated here from [employer] [facility] [employer] ] Outpatient Specialists: [ ] Inpatient Consults: [[facility] team for ICU management on Cardene drip ] PROBLEM LIST: Hypertensive emergency-POA hypertensive encephalopathy-POA Intractable headache-POA Persistent diarrhea-POA Intractable vomiting-POA ALEAH-POA Hypomagnesemia-POA Hyperlactatemia-POA Lung nodules-POA Small left lobe hepatic cyst-POA Medical [id number] Tremors on the lips and arms, denies DX of parkinsons' disease-POA RLS Primary HTN COPD, not on exacerbation HLD Arthritis GERD Mood disorder Chronic pain Mild dementia INTERVAL HISTORY: Patient was seen and examined, patient is sitting comfortably at bedside chair, multiple family members present Nursing reports overnight he became more confused. However back to his baseline this morning. He is in no distress he is comfortable and reporting no pain or discomfort Patient was back on the Cardizem for systolics in the 200s. Continuing to adjust his antihypertensives MRI brain no acute findings, same with the perfusion scans. Renal ultrasound. Patient afebrile Good O2 saturations on room air Plan Following cardiology recommendations Continue to adjust antihypertensives We will scheduled cardio follow-up post discharge Wean Cardizem Telemetry Total critical care time spent 43 minutes, this time excludes any procedures or educational times spent. REVIEW OF SYSTEMS: 12 point ROS reviewed with patient. Pertinent positives mentioned above. Otherwise negative. PHYSICAL EXAM: GENERAL: alert, weak, awake oriented x 3 HEENT: EOMI, Sclera non icteric, moist mucosa, tremors' on the lips NECK: Supple, no JVD, trachea midline LUNGS: Clear breath sounds bilaterally. No wheezes HEART: Regular rate and rhythm. Normal S1 and S2, without murmurs ABD: Abdomen soft, nontender. Bowel sounds present EXT: No clubbing cyanosis or edema, tremors on the arms NEURO: Alert and oriented to person, follows commands Vital Signs (last 8hr) Date Time Temp Pulse Resp B/P (MAP) Pulse Ox O2 Delivery O2 Flow Rate FiO2 12/19/24 08:45 67 23 156/85 (108) 98 21 12/19/24 08:39 64 20 179/82 (114) 98 21 12/19/24 08:29 66 22 188/76 (113) 98 21 12/19/24 07:53 70 37 194/95 (128) 98 21 12/19/24 07:30 69 17 219/91 (133) 98 21 12/19/24 07:30 98 Room Air* 0 12/19/24 07:24 67 16 208/88 (128) 98 21 12/19/24 07:08 68 15 189/93 (125) 98 21 12/19/24 07:04 60 18 N/A Room Air 12/19/24 07:03 58 18 12/19/24 06:53 181/97 (125) 21 12/19/24 04:00 Room Air* 0 21 LABS: Hematology Labs: Test 12/19/24 05:33 12/18/24 09:36 12/17/24 13:54 Range/Units White Blood Count 7.6 4.8-10.8 K/uL Red Blood Count 4.08 L 4.50-6.20 MIL/uL Hemoglobin 11.1 L 14.0-18.0 g/dL Hematocrit 34.1 L 42-54 % Mean Corpuscular Volume 83.6 79-99 fL Mean Corpuscular Hemoglobin 27.2 27.0-33.0 pg Mean Corpuscular Hemoglobin Concent 32.6 32.0-36.0 g/dL Red Cell Distribution Width 17.1 H 11.0-15.5 % Platelet Count 267 130-400 K/uL Mean Platelet Volume 9.8 7.5-10.5 fL Nucleated Red Blood Cells 0.0 0.0-0.19 % Immature Granulocyte % (Auto) 0.4 0-1 % Neutrophils (%) (Auto) 73.7 40.0-77.0 % Lymphocytes (%) (Auto) 15.1 L 21.0-51.0 % Monocytes (%) (Auto) 10.0 3.0-13.0 % Eosinophils (%) (Auto) 0.4 0.0-8.0 % Basophils (%) (Auto) 0.4 0.0-5.0 % Neutrophils # (Auto) 5.9 1.8-7.7 K/uL Lymphocytes # (Auto) 1.2 1.0-4.8 K/uL Monocytes # (Auto) 0.8 0.1-1.0 K/uL Eosinophils # (Auto) 0.03 0.00-0.70 K/uL Basophils # (Auto) 0.03 0.00-0.20 K/uL Absolute Immature Granulocyte (auto 0.03 0-1 K/uL Erythrocyte Sedimentation Rate 11 0-20 MM/HR Chemistry Labs: Test 12/19/24 05:33 12/18/24 09:36 12/17/24 17:14 12/17/24 13:54 Range/Units Sodium Level 138 136-145 mmol/L Potassium Level 5.0 3.5-5.1 mmol/L Chloride Level 104 101-111 mmol/L Carbon Dioxide Level 26 21-32 mmol/L Blood Urea Nitrogen 13 7-18 mg/dL Creatinine 1.4 H 0.5-1.3 mg/dL Glomerular Filtration Rate Calc 50 >90 mL/min Random Glucose 93 70-105 mg/dL Total Calcium 8.9 8.5-10.1 mg/dL Total Bilirubin 0.7 0.2-1.0 mg/dL Aspartate Amino Transf (AST/SGOT) 33 10-37 U/L Alanine Aminotransferase (ALT/SGPT) 18 # 12-78 U/L Alkaline Phosphatase 88 50-136 U/L Total Protein 6.6 6.0-8.3 g/dL Albumin 3.3 L 3.5-5.0 g/dL Vitamin B12 Level 266 193-986 pg/mL Thyroid Stimulating Hormone (TSH) 0.78 0.36-3.74 uIU/mL Total Creatine Kinase 85 # 21-232 U/L Troponin I High Sensitivity 136.4 *H 4-75 ng/L Lactic Acid Level 1.9 0.8-2.5 mmol/L Magnesium Level 1.60 L 1.80-2.40 mg/dL Lactate Dehydrogenase 113 81-234 U/L C-Reactive Protein, Quantitative 2.40 0.5-3.0 mg/L B-Type Natriuretic Peptide 126 H 0-100 pg/mL Lipase 31 16-77 U/L Procalcitonin < 0.05 L 0.05-0.5 ng/mL Coagulation Labs: Test 12/17/24 13:54 Range/Units Prothrombin Time 10.7 9.6-11.6 SEC Prothromb Time International Ratio 1.01 0.85-1.15 Activated Partial Thromboplast Time 23.1 L 26.3-35.5 SEC DIAGNOSTICS / RADIOLOGY RESULTS: [ ] PLAN NEURO: Minimize central acting medications as possible. Fall Precautions. Well lighted room through the day and minimize interruptions through the night to prevent acute delirium. PULMONARY: Supplemental 02 as needed Titrate Fio2 to keep Spo2 > or = 90% DuoNebs and CPT as needed IS hourly while awake for pulmonary hygiene Out of bed to chair as tolerated VAP Bundle Vent/BIPAP Settings: [ ] Driving pressure: [ ] P Plat: [ ] Static C: [ ] Static R: [ ] P/F Ratio: [ ] CARDIOVASCULAR: Follow hemodynamics. Titrate vasopressor to keep MAP >65 or systolic blood pressure >95mmHg DRIPS: [Cardene drip ] LINES: [ ] GI & NUTRITION: Continue nutritional support Aspirations precautions Prokinetic agents and laxatives as needed KIDNEYS & ELECTROLYTES: Strict monitoring of intake and output Daily weights Avoid nephrotoxic agents Monitor electrolytes and replace as needed Goal urine output of 30mL/hr or 0.5mL/kg/hr Urine output: [ ] Fluid Balance: [ ] ENDOCRINE: Maintain blood glucose between 100-180 at all times. Insulin sliding scale for blood glucose management INFECTIOUS DISEASE: Trend temperature. Taylor-culture if febrile. Micro: [ ] Antibiotics: [ ] HEMATOLOGY & COAGULATION: Monitor H&H. Keep Hgb > 7 Transfuse 1 unit of PRBC for Hgb < 7 Transfuse 1 pack of platelets of platelets < 20, 000 Watch for any signs and symptoms of bleeding SKIN: Pressure ulcer prevention per facility protocol Rehab: PT/OT Prophylaxis: GI: DVT: [ ] Code Status: Full Resuscitation Disposition: [ ] Case was discussed and seen with my supervising physician. The above plan was formulated and agreed upon. SONJA HANEY PAC Dec 19, 2024 10:13
--- NOTE | 2024-12-19 14:28 | PN ---
CARDIOLOGY Reason for consult: Chest pain HPI/story at presentation: 66 year old male with a past medical history significant for HTN, COPD presented to the emergency department due to headache and N/V. Initial Blood pressure was found to be in the 200s systolic. Patients states she noticed patient has been shaking more than is usual with some difficulty speaking. states they recently moved from [place] and have not been able to find a primary care provider. Also states patient ran out of his HTN medication a few months ago and has not been able to obtain refills. A Cardene drip was started for blood pressure control. Patient was experiencing chest pain and was administered SL nitro with relief. Initial 12 LEAD EKG shows sinus rhythm at a rate of 63 with a RBBB and T wave inversions to leads III, V1 through V3 Past medical history: See below Allergies, Meds See chart Review of systems Review of Systems Constitutional: Negative for chills and fever. HENT: Negative for ear discharge and ear pain. + Headache Eyes: Negative for photophobia and discharge. Respiratory: Negative for cough, sputum production and stridor. Cardiovascular: + chest pain and palpitations. Gastrointestinal: Negative for diarrhea and + vomiting. Genitourinary: Negative for frequency. Musculoskeletal: Negative for myalgias. Skin: Negative for rash. Neurological: Negative for focal weakness and seizures. Endo/Heme/Allergies: Negative for polydipsia. Psychiatric/Behavioral: Negative for hallucinations. Vitals see chart PHYSICAL EXAMINATION GENERAL: The patient is alert and oriented*3, Ill appearing HEENT: Nonicteric sclerae, non traumatic HEART: Regular rate and rhythm with no murmurs LUNGS: Clear to auscultation bilaterally ABDOMEN: No acute issues, non tender GENITAL, RECTAL: deferred SKIN: No rash NEUROLOGIC: NFND, mild dysarthria EXTREMITIES: No edema ASSESSMENT CHEST PAIN Unable to fully describe pain Initial 12 LEAD EKG shows sinus rhythm at a rate of 63 with a RBBB and T wave inversions to leads III, V1 through V3 HYPERTENSIVE EMERGENCY Initial BP >200 systolic Cardene drip CORE MEASURES Pending OTHER MEDICAL PROBLEMS Reviewed PLAN 12/17/2024 Echocardiogram will be ordered Continue with serial troponin enzymes Continue Cardene drip for now Continue with stroke workup 12/18/2024 Patient more awake and alert today Serial troponin level with some slight elevation at 145-->136 Echocardiogram results showing EF at 65% Will start lovenox 1mg/kg SQ BID oral antihypertensive meds have been started and will continue to wean off cardene drip 12/19/2024 Remains on cardene drip Hydralazine was started today Continue with lisinopril Denies any more chest pain Will order another serum troponin and if still eleveated, will condisder a CCTA of heart ATTESTATION Case discussed with Dr. Martines Vitals/Labs Vital Signs Date Time Temp Pulse Resp B/P (MAP) Pulse Ox O2 Delivery O2 Flow Rate FiO2 12/19/24 12:00 98.2 12/19/24 11:30 97 Room Air* 0 21 12/19/24 08:45 67 23 156/85 (108) Laboratory Tests 12/19/24 05:33 Medications Current Medications Hydralazine HCl 10 mg ONCE ONCE IV Last administered on 12/17/24at 14:12; Start 12/17/24 at 14:30; Stop 12/17/24 at 14:31; Status DC Piperacillin Sod/ Tazobactam Sod 3.375 gm ONCE ONCE IV Last administered on 12/17/24at 14:57; Start 12/17/24 at 14:30; Stop 12/17/24 at 14:31; Status DC Sodium Chloride 1,000 ml @ 0 mls/hr ONCE ONCE IV Last administered on 12/17/24at 14:57; Start 12/17/24 at 15:00; Stop 12/17/24 at 15:01; Status DC Labetalol HCl 10 mg ONCE ONCE IV Last administered on 12/17/24at 14:54; Start 12/17/24 at 15:00; Stop 12/17/24 at 15:01; Status DC Morphine Sulfate 2 mg ONCE ONCE IVP Last administered on 12/17/24at 15:27; Start 12/17/24 at 15:30; Stop 12/17/24 at 15:31; Status DC Ondansetron HCl 4 mg ONCE ONCE IVP Last administered on 12/17/24at 15:27; Start 12/17/24 at 15:30; Stop 12/17/24 at 15:31; Status DC Nicardipine HCl 25 mg/Sodium Chloride 250 ml @ 0 mls/hr PROTOCOL IV Last administered on 12/18/24at 00:23; Start 12/17/24 at 15:30; Stop 01/16/25 at 15:29 Nicardipine HCl 25 mg STK-MED ONCE IV Last administered on 12/17/24at 15:23; Start 12/17/24 at 15:17; Stop 12/17/24 at 15:17; Status DC Acetaminophen 1,000 mg ONCE ONCE IVPB Last administered on 12/17/24at 17:07; Start 12/17/24 at 16:00; Stop 12/17/24 at 16:01; Status DC Ketorolac Tromethamine 15 mg ONCE ONCE IV Last administered on 12/17/24at 16:29; Start 12/17/24 at 16:00; Stop 12/17/24 at 16:01; Status DC Magnesium Sulfate 50 ml @ 0 mls/hr PROTOCOL IV Last administered on 12/18/24at 08:20; Start 12/17/24 at 16:00; Stop 01/16/25 at 15:59 Acetaminophen 650 mg Q6H PRN PO Last administered on 12/18/24at 22:32; Start 12/17/24 at 16:00; Stop 01/16/25 at 15:59 Ondansetron HCl 4 mg Q6H PRN IVP Last administered on 12/18/24at 11:09; Start 12/17/24 at 16:00; Stop 01/16/25 at 15:59 Famotidine 20 mg Q48H IV; Start 12/17/24 at 21:00; Stop 12/17/24 at 16:03; Status DC Albuterol 1 udvial Q6H PRN IH; Start 12/17/24 at 16:00; Stop 01/16/25 at 15:59 Sodium Chloride 1,000 ml @ 75 mls/hr [id number] IV Last administered on 12/19/24at 08:55; Start 12/17/24 at 16:00; Stop 01/16/25 at 15:59 Budesonide 0.5 mg BIDRESP IH Last administered on 12/19/24at 07:02; Start 12/17/24 at 18:00; Stop 01/16/25 at 17:59 Albuterol 1 udvial Q6H PRN IH; Start 12/17/24 at 16:00; Stop 12/17/24 at 16:02; Status DC Hydromorphone HCl 0.5 mg Q6H PRN IVP; Start 12/17/24 at 16:30; Stop 12/22/24 at 16:29 Piperacillin Sod/ Tazobactam Sod 3.375 gm Q8H IVPB Last administered on 12/19/24at 08:51; Start 12/17/24 at 23:00; Stop 12/27/24 at 22:59 Nitroglycerin 0.4 mg AD PRN SL; Start 12/17/24 at 16:30; Stop 01/16/25 at 16:29 Atorvastatin Calcium 40 mg HS PO Last administered on 12/18/24at 21:04; Start 12/17/24 at 21:00; Stop 12/19/24 at 02:59; Status DC Iohexol 35,000 mg STK-MED ONCE IV; Start 12/17/24 at 17:21; Stop 12/17/24 at 17:21; Status DC Iohexol 35,000 mg STK-MED ONCE IV; Start 12/17/24 at 18:15; Stop 12/17/24 at 18:16; Status DC Clonidine HCl 0.1 mg ONCE ONCE PO Last administered on 12/17/24at 23:38; Start 12/17/24 at 23:00; Stop 12/17/24 at 23:10; Status DC Famotidine 20 mg DAILY PO Last administered on 12/19/24at 08:52; Start 12/18/24 at 09:00; Stop 01/17/25 at 08:59 Benzonatate 100 mg Q8H PRN PO; Start 12/18/24 at 11:30; Stop 01/17/25 at 11:29 Atenolol 50 mg DAILY PO Last administered on 12/18/24at 12:18; Start 12/18/24 at 12:30; Stop 01/17/25 at 12:29 Lisinopril 20 mg DAILY PO Last administered on 12/19/24at 08:52; Start 12/18/24 at 12:30; Stop 01/17/25 at 12:29 Amlodipine Besylate 10 mg DAILY PO Last administered on 12/19/24at 08:52; Start 12/18/24 at 12:30; Stop 01/17/25 at 12:29 Pharmacy Profile Note 1 each ONCE ONCE MISC; Start 12/18/24 at 12:30; Stop 12/18/24 at 12:14; Status DC Hydralazine HCl 10 mg Q6H PRN IV Last administered on 12/18/24at 21:11; Start 12/18/24 at 12:30; Stop 01/17/25 at 12:29 Labetalol HCl 10 mg Q6H PRN IV Last administered on 12/18/24at 23:29; Start 12/18/24 at 12:30; Stop 01/17/25 at 12:29 Enoxaparin Sodium 1 unit Q24H SQ; Start 12/18/24 at 14:30; Stop 12/18/24 at 14:31; Status DC Enoxaparin Sodium 60 mg Q24H SQ Last administered on 12/18/24at 15:38; Start 12/18/24 at 15:00; Stop 01/17/25 at 14:59 Olanzapine 2.5 mg ONCE STAT IM Last administered on 12/19/24at 03:37; Start 12/19/24 at 02:26; Stop 12/19/24 at 02:58; Status DC Atorvastatin Calcium 40 mg DAILY PO Last administered on 12/19/24at 08:52; Start 12/19/24 at 09:00; Stop 01/18/25 at 08:59 Montelukast Sodium 10 mg DAILY PO Last administered on 12/19/24at 08:52; Start 12/19/24 at 09:00; Stop 01/18/25 at 08:59 Trazodone HCl 50 mg HS PO; Start 12/19/24 at 21:00; Stop 01/18/25 at 20:59 Sertraline HCl 100 mg DAILY PO Last administered on 12/19/24at 08:52; Start 12/19/24 at 09:00; Stop 01/18/25 at 08:59 Olanzapine 10 mg STK-MED ONCE IM; Start 12/19/24 at 02:36; Stop 12/19/24 at 02:37; Status DC Sterile Water 10 ml STK-MED ONCE .ROUTE Last administered on 12/19/24at 03:37; Start 12/19/24 at 02:38; Stop 12/19/24 at 02:38; Status DC Hydroxyzine HCl 25 mg ONCE ONCE PO Last administered on 12/19/24at 04:33; Start 12/19/24 at 04:30; Stop 12/19/24 at 04:31; Status DC Hydralazine HCl 50 mg BID PO; Start 12/19/24 at 21:00; Stop 01/18/25 at 20:59 Gabapentin 300 mg TID PO; Start 12/19/24 at 14:00; Stop 01/18/25 at 13:59 [facility] ARAUJO [facility] Dec 19, 2024 14:28
--- NOTE | 2024-12-19 15:15 | PN ---
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 Patient states that he recently moved to [place] about a month ago. He is originally from [place], [place]. He has underlying history of hypertension and has been maintained on multiple antihypertensives as outpatient. He has been maintained on lisinopril 20 mg daily as well as amlodipine 10 mg daily. Since moving to [place], he has not taken any antihypertensives for about a month due to problems establishing with a primary care physician as outpatient. Over the last four days, he has been having malaise, subjective fevers, chills, headache, nausea. He has been having diarrhea and reports having had about six loose stools today. Headache has been progressing and was severe in intensity and patient rates it as 10/10. Reports having some photophobia. Denies any neck pain or stiffness. Denies having previous history of stroke, seizures or epilepsy. Denies previous history of [place]. Denies focal weakness of upper or lower extremities. Patient does report having history of COPD and has been maintained on home inhalers. Reports that close to January last year, he had infection of right shoulder prosthesis that was placed about 6-7 years ago with loosening of the screws. Patient was found to have prosthetic joint infection and received prolonged course of IV antibiotics which was followed by right shoulder reverse arthroplasty in [place]. Patient on bedside interview appears in distress with active nausea, vomiting, severe headache. On presentation to the hospital, patient was found to have blood pressure trending between 200s-220s/100s-130s systolic, noted to be afebrile with T-max of 96.6 F, heart rate of 85. Labs on presentation showed WBC count of 7900, hemoglobin 12.8, platelet count of 311,000. BMP showed sodium of 140, potassium 5.0, BUN of 14, creatinine 0.5, lactic acid of 2.8, magnesium 1.6, initial cardiac troponin 15. Patient underwent CT head without contrast which showed no acute intracranial a bnormality with no findings of acute hemorrhage, mass effect or acute territorial infarct. Chest x-ray showed no acute infiltrates, CT abdomen pelvis without contrast showed findings of no acute intra-abdominal or pelvic abnormality. Patient received bolus of NS in the ER along with doses of IV hydralazine and IV labetalol with no improvement of blood pressure, patient was subsequently initiated on Cardene drip. Patient will be admitted to ICU. Patient will be initiated on Cardene drip. Consultation with Neurology will be requested. We will have Cardiology and Intensive Care Service see this patient closely. Patient during his ER stay also started having chest pain, substernal with no associated radiation to the back or the shoulder blade. Patient received a dose of nitroglycerin with improvement of chest pain. We will see how patient progresses in the next 48-72 hours. Condition remains critical, plan of care was discussed with patient and family at bedside and personally discussed patient's case with multiple consultants. 12/18/2024: Patient is seen and evaluated in the room 216. , when examined patient is having the intention tremors. Since the patient is unable to take BP medications since for 1 month, patient presented with hypertensive emergency. Cardiology on the board and continue Cardene drip for blood pressure control. 2D echo ordered. Neurology consultation placed and they assessed it as a headache. Brain MRI revealed mild chronic microangiopathic white matter changes consistent with small-vessel ischemia. Heart healthy diet started. BIS on the board for his hypertensive emergency. 12/19/2024: Patient was evaluated at bedside in room 216. Patient was seen sitting comfortably in his chair along with several family members and eating breakfast. Patient reported feeling much better this morning and denied headaches, chest pain, abdominal pain, nausea or diarrhea. Nurse reported patient was more agitated and confused overnight however came back to his baseline this morning. Patient resumed his home blood pressure medication and the nicardipine drip is being slowly weaned off by critical care team. All the stroke workup has been negative so far. We will continue recommendations from Cardiology and critical Care teams. REVIEW OF SYSTEMS CONSTITUTIONAL: Denies fevers, chills, or night sweats. No unintentional weight loss reported. NEUROLOGICAL: Admits to tremors in bilateral hands Denies headache, motor weakness, sensory deficit, vertigo/spinning sensation CARDIOVASCULAR: Denies any exertional angina, dyspnea on exertion, orthopnea, paroxysmal nocturnal dyspnea, palpitations PULMONARY: Denies any shortness of breath, cough, phlegm/sputum, hemoptysis, pleuritic chest pain. GASTROINTESTINAL: Denies any type of dysphagia to either liquids or solids. Denies nausea, vomiting, pyrosis, early satiety, abdominal pain, diarrhea, constipation GENITOURINARY: Denies frequency, urgency, nocturia, hematuria or incontinence DERMATOLOGIC: Denies rashes, itching, redness. PHYSICAL EXAM GENERAL APPEARANCE: The patient is awake, alert, appears frail and debilitated, he is vomiting on the stretcher, appears in mild distress NEUROLOGICAL: Cranial nerves II-XII grossly intact. Patient is moving both the upper and lower extremities with no focal deficits, patient is very soft spoken, essential tremor noted in bilateral upper extremities HEENT: Face is symmetric. Pupils are equal and reactive. Extraocular movements are intact. NECK: Supple. No JVD. No thyromegaly. No submental, submandibular, pre- /postauricular, occipital or supraclavicular lymphadenopathy. CHEST: Normal chest expansion. No Telemetry. LUNGS: Absence of any rales, rhonchi or any wheezing. CARDIOVASCULAR: Regular. S1 and S2 normal. No appreciable rubs, murmurs or gallops. ABDOMEN: Soft, nontender, and nondistended. There is no rebound, voluntary guarding, or rigidity. : Deferred. No Sanz. EXTREMITIES: Non-edematous and not cyanotic. No clubbing. Good capillary refill. SKIN: No skin breakdown. Vital Signs (last 8hr) Date Time Temp Pulse Resp B/P (MAP) Pulse Ox O2 Delivery O2 Flow Rate FiO2 12/19/24 12:00 98.2 12/19/24 11:30 97 Room Air* 0 12/19/24 08:45 67 23 156/85 (108) 98 12/19/24 08:39 64 20 179/82 (114) 98 12/19/24 08:29 66 22 188/76 (113) 98 12/19/24 08:00 97.9 12/19/24 07:53 70 37 194/95 (128) 98 21 12/19/24 07:30 69 17 219/91 (133) 98 12/19/24 07:30 98 Room Air* 0 12/19/24 07:24 67 16 208/88 (128) 98 12/19/24 07:08 68 15 189/93 (125) 98 12/19/24 07:04 60 18 N/A Room Air 12/19/24 07:03 58 18 LABS: Laboratory: Test 12/19/24 13:53 12/19/24 05:33 12/18/24 09:36 12/17/24 17:14 Range/Units Ammonia < 10 L 11-32 umol/L Troponin I High Sensitivity 63 4-75 ng/L White Blood Count 7.6 4.8-10.8 K/uL Red Blood Count 4.08 L 4.50-6.20 MIL/uL Hemoglobin 11.1 L 14.0-18.0 g/dL Hematocrit 34.1 L 42-54 % Mean Corpuscular Volume 83.6 79-99 fL Mean Corpuscular Hemoglobin 27.2 27.0-33.0 pg Mean Corpuscular Hemoglobin Concent 32.6 32.0-36.0 g/dL Red Cell Distribution Width 17.1 H 11.0-15.5 % Platelet Count 267 130-400 K/uL Mean Platelet Volume 9.8 7.5-10.5 fL Nucleated Red Blood Cells 0.0 0.0-0.19 % Sodium Level 138 136-145 mmol/L Potassium Level 5.0 3.5-5.1 mmol/L Chloride Level 104 101-111 mmol/L Carbon Dioxide Level 26 21-32 mmol/L Blood Urea Nitrogen 13 7-18 mg/dL Creatinine 1.4 H 0.5-1.3 mg/dL Glomerular Filtration Rate Calc 50 >90 mL/min Random Glucose 93 70-105 mg/dL Total Calcium 8.9 8.5-10.1 mg/dL Total Bilirubin 0.7 0.2-1.0 mg/dL Aspartate Amino Transf (AST/SGOT) 33 10-37 U/L Alanine Aminotransferase (ALT/SGPT) 18 # 12-78 U/L Alkaline Phosphatase 88 50-136 U/L Total Protein 6.6 6.0-8.3 g/dL Albumin 3.3 L 3.5-5.0 g/dL Vitamin B12 Level 266 193-986 pg/mL Thyroid Stimulating Hormone (TSH) 0.78 0.36-3.74 uIU/mL Immature Granulocyte % (Auto) 0.4 0-1 % Neutrophils (%) (Auto) 73.7 40.0-77.0 % Lymphocytes (%) (Auto) 15.1 L 21.0-51.0 % Monocytes (%) (Auto) 10.0 3.0-13.0 % Eosinophils (%) (Auto) 0.4 0.0-8.0 % Basophils (%) (Auto) 0.4 0.0-5.0 % Neutrophils # (Auto) 5.9 1.8-7.7 K/uL Lymphocytes # (Auto) 1.2 1.0-4.8 K/uL Monocytes # (Auto) 0.8 0.1-1.0 K/uL Eosinophils # (Auto) 0.03 0.00-0.70 K/uL Basophils # (Auto) 0.03 0.00-0.20 K/uL Absolute Immature Granulocyte (auto 0.03 0-1 K/uL Total Creatine Kinase 85 # 21-232 U/L Lactic Acid Level 1.9 0.8-2.5 mmol/L Test 12/17/24 17:12 Range/Units Urine Color LIGHT-YELLOW YELLOW Urine Appearance CLEAR CLEAR Urine pH 7.5 5.0-8.0 Urine Specific [place] 1.017 1.001-1.031 Urine Protein NEGATIVE NEGATIVE mg/dL Urine Glucose (UA) NEGATIVE NEGATIVE mg/dL Urine Ketones 10 H NEGATIVE mg/dL Urine Occult Blood NEGATIVE NEGATIVE Urine Nitrate NEGATIVE NEGATIVE Urine Bilirubin NEGATIVE NEGATIVE mg/dL Urine Urobilinogen 0.2 0.2-1.0 mg/dL Urine Leukocyte Esterase NEGATIVE NEGATIVE Bertha/uL Urine Random Creatinine 79.58 30-135 mg/dL Urine Random Total Protein 24.5 H 0-11.9 mg/dL Urine Opiates Screen NEGATIVE NEGATIVE Urine Barbiturates Screen NEGATIVE NEGATIVE Urine Phencyclidine Screen NEGATIVE NEGATIVE Urine Amphetamines Screen NEGATIVE NEGATIVE Urine Benzodiazepines Screen NEGATIVE NEGATIVE Urine Cocaine Screen NEGATIVE NEGATIVE Urine Marijuana (THC) Screen NEGATIVE NEGATIVE Current Medications Medications (Trade) Dose Ordered Sig/Elie Route PRN Reason Start Time Stop Time Status Last Admin Dose Admin Acetaminophen (TYLenol 325MG TAB) 650 mg Q6H PRN PO MILD PAIN (1-3) 12/17/24 16:00 01/16/25 15:59 12/18/24 22:32 650 MG Albuterol (DUOneb) 1 udvial Q6H PRN IH SHORTNESS OF BREATH 12/17/24 16:00 12/17/24 16:02 DC Albuterol (DUOneb) 1 udvial Q6H PRN IH SHORTNESS OF BREATH 12/17/24 16:00 01/16/25 15:59 Amlodipine Besylate (NorvASC 5MG TAB) 10 mg DAILY PO 12/18/24 12:30 01/17/25 12:29 12/19/24 08:52 10 MG Atenolol (Atenolol) 50 mg DAILY PO 12/18/24 12:30 01/17/25 12:29 12/18/24 12:18 50 MG Atorvastatin Calcium (LIPItor 40MG) 40 mg DAILY PO 12/19/24 09:00 01/18/25 08:59 12/19/24 08:52 40 MG Atorvastatin Calcium (LIPItor 40MG) 40 mg HS PO 12/17/24 21:00 12/19/24 02:59 DC 12/18/24 21:04 40 MG Benzonatate (Tessalon 100mg Caps) 100 mg Q8H PRN PO COUGH 12/18/24 11:30 01/17/25 11:29 Budesonide (Pulmicort 0.5 Mg/2ml) 0.5 mg BIDRESP IH 12/17/24 18:00 01/16/25 17:59 12/19/24 07:02 0.5 MG Enoxaparin Sodium (Lovenox (Pharmacy To Dose)) 1 unit Q24H SQ 12/18/24 14:30 12/18/24 14:31 DC Enoxaparin Sodium (Lovenox 60mg) 60 mg Q24H SQ 12/18/24 15:00 01/17/25 14:59 12/18/24 15:38 60 MG Famotidine (Pepcid 20mg Vial) 20 mg Q48H IV 12/17/24 21:00 12/17/24 16:03 DC Famotidine (Pepcid 20mg Tab) 20 mg DAILY PO 12/18/24 09:00 01/17/25 08:59 12/19/24 08:52 20 MG Gabapentin (NEURontin 100 mg CAP) 300 mg TID PO 12/19/24 14:00 01/18/25 13:59 Hydralazine HCl (APRESOLine 20MG INJ) 10 mg Q6H PRN IV ADMINISTER FOR SBP > 180 12/18/24 12:30 01/17/25 12:29 12/18/24 21:11 10 MG Hydralazine HCl (INJCETGyds37DG TAB) 50 mg BID PO 12/19/24 21:00 01/18/25 20:59 Hydromorphone HCl (DiLAUDid 0.5MG INJ) 0.5 mg Q6H PRN IVP SEVERE PAIN (7-10) 12/17/24 16:30 12/22/24 16:29 Labetalol HCl (TRANdate 20MG SYG) 10 mg Q6H PRN IV IF SBP GREATER THAN 180 12/18/24 12:30 01/17/25 12:29 12/18/24 23:29 10 MG Lisinopril (Prinivil 20mg) 20 mg DAILY PO 12/18/24 12:30 01/17/25 12:29 12/19/24 08:52 20 MG Magnesium Sulfate 50 ml @ 0 mls/hr PROTOCOL IV 12/17/24 16:00 01/16/25 15:59 12/18/24 08:20 25 MLS/HR Montelukast Sodium (SinguLAIR) 10 mg DAILY PO 12/19/24 09:00 01/18/25 08:59 12/19/24 08:52 10 MG Nicardipine HCl 25 mg/Sodium Chloride 250 ml @ 0 mls/hr PROTOCOL IV 12/17/24 15:30 01/16/25 15:29 12/18/24 00:23 50 MLS/HR Nitroglycerin (Nitrostat) 0.4 mg AD PRN SL CHEST PAIN 12/17/24 16:30 01/16/25 16:29 Olanzapine (ZyPREXA 10MG/ML 1ML Vial) 2.5 mg ONCE STAT IM 12/19/24 02:26 12/19/24 02:58 DC 12/19/24 03:37 2.5 MG Ondansetron HCl (zoFRAN 4MG INJ) 4 mg Q6H PRN IVP NAUSEA/VOMITING 12/17/24 16:00 01/16/25 15:59 12/18/24 11:09 4 MG Piperacillin Sod/ Tazobactam Sod (Zosyn 3.375gm+NS 50ml) 3.375 gm Q8H IVPB 12/17/24 23:00 12/27/24 22:59 12/19/24 08:51 3.375 GM Sertraline HCl (ZOloft 50 mg tab) 100 mg DAILY PO 12/19/24 09:00 01/18/25 08:59 12/19/24 08:52 100 MG Sodium Chloride 1,000 ml @ 75 mls/hr [id number] IV 12/17/24 16:00 01/16/25 15:59 12/19/24 08:55 75 MLS/HR Trazodone HCl (DesyREL/OlepTRO) 50 mg HS PO 12/19/24 21:00 01/18/25 20:59 DIAGNOSTICS / RADIOLOGY: [ ] PATIENT: MARCELLO CRYSTAL MR#: [id number] : 1940 SEX: M AGE: 84 LOCATION: [facility] ORDER 1550 STATUS: ADM IN [facility] REPORT#: [id number] SERVICE 1549 REASON: HTN emergency, Dr. Martines to read ORDERING PHYSICIAN: GERALDINE HORN MD PROCEDURE: ECHO CMP - ECHO 2-D COMPLETE APPROVED REPORT EXAM: Two-dimensional and M-mode echocardiogram with Doppler and color Doppler. INDICATION ICD: Hypertension emergency 2D Dimensions RVDd 3.7 cm LVEF(%) 64.4 (>50%) LVED Vol(simp.) 76.0 mL IVSd 1.4 (0.7-1.1cm) FS(%) 35 % LVES Vol(simp.) 27.0 mL LVDd 4.2 (3.8-5.6cm) LA (2D) 4.9 (1.6-4.0cm) LVEF(%, simp.) 65 % PWd 1.3 (0.7-1.1cm) Ao Root(2D) 3.2 (2.0-3.7cm) LA ESV INDEX (BP) 32.40 mL/m2 IVSs 1.6 cm LVOT diam 2.1 (1.8-2.4cm) LVDs 2.7 (2.5-4.0cm) PWs 2.0 cm Deformation Strain Apical 4 -17.9 % Apical 2 -17.5 % Apical 3 -15.7 % Global Strain -17.0 % M-Mode Dimensions EPSS 0.4 cm LA (MM) 5.1 (1.6-4.0cm) Ao Root(MM) 3.1 (2.0-3.7cm) Aortic Valve AoV Vmax 2.3 m/s Ao Peak GR 20.3 mmHg LVOT Vmax 1.3 m/s AoV VTI 0.4 m Ao Mean GR 10.7 mmHg LVOT VTI 0.30 m KITTY (VMAX) 1.96 cm2 KITTY (VTI) 2.5 cm2 Mitral Valve MV E Vmax 52.9 cm/s DECEL Time 238 ms MV A Vmax 68.5 cm/s P 1/2 T 41 ms E/A ratio 0.8 MVA (PHT) 5.4 cm2 TDI E/E' Medial 9.9 E/E' Lateral 7.0 Medial E' Peak V 5.34 cm/s Lateral E' Peak V 7.54 cm/s Pulmonary Valve PV Vmax 1.5 m/s PI End Cara. Rolan 107.3 cm/s PV Mean GR 3.5 mmHg PV Peak GR 8.6 mmHg Tricuspid Valve TR Vmax 2.5 m/s RAP (EST) 3 mmHg RVSP 29.0 mmHg TR Peak GR 26.0 mmHg Left Ventricle The left ventricle is normal size. GLS -17.0% Moderate concentric left ventricular hypertrophy. The LVEF is > 65%. Normal diastolic function Right Ventricle The right ventricle is normal size. The right ventricular systolic function is normal. Atria The left atrium size is normal. The right atrium size is normal. Aortic Valve The aortic valve is trileaflet thickened. No aortic regurgitation is present. There is no aortic valvular stenosis. Mitral Valve The mitral valve is mildly thickened. There is trace of mitral valve regurgitation noted. There is no mitral valve stenosis. Tricuspid Valve The tricuspid valve is normal in structure. There is no tricuspid valve regurgitation noted. Pulmonic Valve The pulmonary valve is normal in structure. There is trace of pulmonic valvular regurgitation. Great Vessels The aortic root is normal in size. The IVC is normal in size and collapses >50% with inspiration. Pericardium There is no pericardial effusion. Other Information Quality : Adequate Conclusion The LVEF is > 65%. Normal diastolic function Moderate concentric left ventricular hypertrophy. The left ventricle is normal size. GLS -17.0% The aortic valve is trileaflet thickened. The mitral valve is mildly thickened. Normal pulmonary pressures Study quality was adequate DICTATED BY: KRISTIE HOOVER MD DATE: 12/18/24 0751 ELECTRONICALLY SIGNED BY: KRISTIE HOOVER MD DATE: 12/18/24 0991 ASSESSMENT: Hypertensive emergency, POA Essential tremor POA Severe headache, most likely due to hypertensive emergency POA Chest pain, likely secondary to hypertensive emergency POA Lactic acidosis, resolved Acute infectious gastroenteritis, POA CKD Stage III, POA History of noncompliance with antihypertensive therapy as outpatient for one month, POA Debility/frailty, POA History of uncontrolled hypertension, POA Hyperlipidemia, POA History of COPD, POA History of GERD, POA 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 status post extended course of IV antibiotics and repeat shoulder arthroplasty close to 03/2024, POA History of lower back surgery, POA PLAN: Hypertensive emergency, POA * At presentation blood pressure was 210/130 mmhg, with headache and photophobia * CT head was unremarkable ruled out acute intracranial pathologies * MRI brain showed no acute infarcts and only chronic microangiopathic white matter changes consistent with small-vessel ischemia * CT angio of head and neck is unremarkable except for atherosclerotic wall calcifications * Continue nicardipine drip and wean it off as per Cardiology recommendation * Resume home blood pressure medications, lisinopril 20 mg, amlodipine 10 mg Chest pain, most likely due to hypertensive emergency POA * Chest pain, substernal with no associated radiation to back or shoulder blade with a mild elevation in cardiac troponins which returned to normal levels * 2D echo showed left ventricular ejection fraction greater than 65%, moderate concentric left ventricular hypertrophy * 12 lead EKG showed sinus rhythm, with are BP and T-wave inversions to lead V1 through V3 * Cardiology on board and recommended to continue serial troponins and Cardene drip for now Acute infectious gastroenteritis, POA * On presentation patient reported nausea vomiting and diarrhea for several weeks * Ordered stool culture and stool PCR panel, awaiting results * Continue Zosyn ATTESTATION BY PHYSICIAN I have seen and examined the patient. I reviewed the documentation, medical decision making, and treatment plan as noted by the resident physician above. I agree with the findings and plan of care. MARE NICOLE MD, HARSHAVARDHA MD Dec 19, 2024 15:15
[2024-12-20] VITALS (17 sets, daily range): BP systolic 118–155; BP diastolic 40–69; PULSE 56–70; RESP 15–22; TEMP 97.9–98.5; O2SAT 95–96
[2024-12-20 03:59] LABS: IMMATURE GRANULOCYTE ABSOLUTE 0.02 K/uL (0-1); NUCLEATED RED BLOOD CELLS 0.0 % (0.0-0.19); PLATELET COUNT (AUTO) 254 K/uL (130-400); RED BLOOD CELL COUNT(AUTO) 3.67 MIL/uL (4.50-6.20); RED CELL DISTRIBUTION WIDTH 17.3 % (11.0-15.5); WHITE BLOOD COUNT (AUTO) 6.2 K/uL (4.8-10.8)
[2024-12-20 04:17] LABS: ASPARTATE AMINOTRANSFERASE 13.0 U/L (10-37); CREATININE 1.8 mg/dL (0.5-1.3); GLOMERULAR FILTR. RATE CALC 37.0 mL/min (>90); GLUCOSE,RANDOM 94.0 mg/dL (70-105); SODIUM SERUM 141.0 mmol/L (136-145); TOTAL PROTEIN, SERUM 5.7 g/dL (6.0-8.3); UREA NITROGEN, BLOOD 21.0 mg/dL (7-18)
[2024-12-20] MEDS ORDERED: PoTASSium chl 10% ELIXIR 20MEQ 20 MEQ/15 ML UDCUP PO PRN (05:00)
[2024-12-20] MEDS: ATENOLOL 25 MG TABLET PO SCH (10:00)
--- NOTE | 2024-12-20 10:30 | NUR ---
RECEIVED PATIENT FROM [place] [address] ICU VIA CARDIAC CHAIR AFTER RECEIVING REPORT FROM [facility]SE[facility] GEOSCIENCE PROFESSOR. PATIENT APPEARS COMFORTABLE. TELEMETRY SB HR 55. WILL CONTINUE PLAN OF CARE.
--- NOTE | 2024-12-20 10:33 | PN ---
[facility] PROGRESS NOTE Date Patient Seen: Dec 20, 2024 Time of Visit: 10:28 Supervising Physician: Dr Franklin Pena Primary Care Physician: [Patient does not remember the neam- relocated here from [employer] ] Outpatient Specialists: [ ] Inpatient Consults: [[facility] team for ICU management on Cardene drip ] PROBLEM LIST: Hypertensive emergency-POA hypertensive encephalopathy-POA ALEAH-POA Lung nodules-POA Medical [id number] Primary HTN COPD, not on exacerbation HLD GERD Mild dementia INTERVAL HISTORY: Patient was seen and examined, sitting comfortably in bed, talking with family members at bedside No acute events overnight Afebrile Good saturations on room air Systolics remain in the 150s were greater, heart rate at times is below 60 when he sleeps He is comfortable, reporting no pain or discomfort, Plan Continue follow cardiology recommendations Patient is off the Cardizem drip, we are adjusting his medications We will downgrade to PCCU Recommend continue with telemetry Patient with a pulmonary nodule we will require additional follow-up. Total patient care time spent 39 minutes, this time excludes any procedures or educational times spent. REVIEW OF SYSTEMS: 12 point ROS reviewed with patient. Pertinent positives mentioned above. Otherwise negative. PHYSICAL EXAM: GENERAL: alert, weak, awake oriented x 3 HEENT: EOMI, Sclera non icteric, moist mucosa, tremors' on the lips NECK: Supple, no JVD, trachea midline LUNGS: Clear breath sounds bilaterally. No wheezes HEART: Regular rate and rhythm. Normal S1 and S2, without murmurs ABD: Abdomen soft, nontender. Bowel sounds present EXT: No clubbing cyanosis or edema, tremors on the arms NEURO: Alert and oriented to person, follows commands Vital Signs (last 8hr) Date Time Temp Pulse Resp B/P (MAP) Pulse Ox O2 Delivery O2 Flow Rate FiO2 12/20/24 09:46 63 135/60 12/20/24 08:19 69 12/20/24 08:00 95 Room Air* 0 21 12/20/24 07:31 69 18 12/20/24 07:17 18 N/A Room Air 12/20/24 06:00 56 22 123/53 99 Room Air 12/20/24 05:00 64 18 155/60 94 Room Air 12/20/24 04:00 98.4 60 22 118/56 94 Room Air 21 12/20/24 04:00 96 Room Air* 0 21 12/20/24 03:00 64 18 123/49 95 Room Air 21 LABS: Hematology Labs: Test 12/20/24 03:55 Range/Units White Blood Count 6.2 4.8-10.8 K/uL Red Blood Count 3.67 L 4.50-6.20 MIL/uL Hemoglobin 10.0 L 14.0-18.0 g/dL Hematocrit 30.9 L 42-54 % Mean Corpuscular Volume 84.2 79-99 fL Mean Corpuscular Hemoglobin 27.2 27.0-33.0 pg Mean Corpuscular Hemoglobin Concent 32.4 32.0-36.0 g/dL Red Cell Distribution Width 17.3 H 11.0-15.5 % Platelet Count 254 130-400 K/uL Mean Platelet Volume 9.2 7.5-10.5 fL Immature Granulocyte % (Auto) 0.3 0-1 % Neutrophils (%) (Auto) 58.1 40.0-77.0 % Lymphocytes (%) (Auto) 25.4 21.0-51.0 % Monocytes (%) (Auto) 13.0 3.0-13.0 % Eosinophils (%) (Auto) 2.4 0.0-8.0 % Basophils (%) (Auto) 0.8 0.0-5.0 % Neutrophils # (Auto) 3.6 1.8-7.7 K/uL Lymphocytes # (Auto) 1.6 1.0-4.8 K/uL Monocytes # (Auto) 0.8 0.1-1.0 K/uL Eosinophils # (Auto) 0.15 0.00-0.70 K/uL Basophils # (Auto) 0.05 0.00-0.20 K/uL Absolute Immature Granulocyte (auto 0.02 0-1 K/uL Nucleated Red Blood Cells 0.0 0.0-0.19 % Chemistry Labs: Test 12/20/24 03:55 12/19/24 13:53 12/19/24 05:33 Range/Units Sodium Level 141 136-145 mmol/L Potassium Level 3.2 L 3.5-5.1 mmol/L Chloride Level 105 101-111 mmol/L Carbon Dioxide Level 28 21-32 mmol/L Blood Urea Nitrogen 21 H 7-18 mg/dL Creatinine 1.8 H 0.5-1.3 mg/dL Glomerular Filtration Rate Calc 37 >90 mL/min Random Glucose 94 70-105 mg/dL Total Calcium 8.3 L 8.5-10.1 mg/dL Magnesium Level 1.80 1.80-2.40 mg/dL Total Bilirubin 0.5 # 0.2-1.0 mg/dL Aspartate Amino Transf (AST/SGOT) 13 10-37 U/L Alanine Aminotransferase (ALT/SGPT) 14 # 12-78 U/L Alkaline Phosphatase 74 50-136 U/L Total Protein 5.7 L 6.0-8.3 g/dL Albumin 2.9 L 3.5-5.0 g/dL Ammonia < 10 L 11-32 umol/L Troponin I High Sensitivity 63 4-75 ng/L Vitamin B12 Level 266 193-986 pg/mL Thyroid Stimulating Hormone (TSH) 0.78 0.36-3.74 uIU/mL DIAGNOSTICS / RADIOLOGY RESULTS: [ ] PLAN NEURO: Minimize central acting medications as possible. Fall Precautions. Well lighted room through the day and minimize interruptions through the night to prevent acute delirium. PULMONARY: Supplemental 02 as needed Titrate Fio2 to keep Spo2 > or = 90% DuoNebs and CPT as needed IS hourly while awake for pulmonary hygiene Out of bed to chair as tolerated VAP Bundle Vent/BIPAP Settings: [ ] Driving pressure: [ ] P Plat: [ ] Static C: [ ] Static R: [ ] P/F Ratio: [ ] CARDIOVASCULAR: Follow hemodynamics. Titrate vasopressor to keep MAP >65 or systolic blood pressure >95mmHg DRIPS: [Cardene drip ] LINES: [ ] GI & NUTRITION: Continue nutritional support Aspirations precautions Prokinetic agents and laxatives as needed KIDNEYS & ELECTROLYTES: Strict monitoring of intake and output Daily weights Avoid nephrotoxic agents Monitor electrolytes and replace as needed Goal urine output of 30mL/hr or 0.5mL/kg/hr Urine output: [ ] Fluid Balance: [ ] ENDOCRINE: Maintain blood glucose between 100-180 at all times. Insulin sliding scale for blood glucose management INFECTIOUS DISEASE: Trend temperature. Taylor-culture if febrile. Micro: [ ] Antibiotics: [ ] HEMATOLOGY & COAGULATION: Monitor H&H. Keep Hgb > 7 Transfuse 1 unit of PRBC for Hgb < 7 Transfuse 1 pack of platelets of platelets < 20, 000 Watch for any signs and symptoms of bleeding SKIN: Pressure ulcer prevention per facility protocol Rehab: PT/OT Prophylaxis: GI: DVT: [ ] Code Status: Full Resuscitation Disposition: [ ] Case was discussed and seen with my supervising physician. The above plan was formulated and agreed upon. SONJA HANEY PAC Dec 20, 2024 10:33
[2024-12-20] MEDS: MAGNESIUM 2GM PREMIX 50ML 50 ML IV PRN (10:36)
[2024-12-20 14:48] LABS: ASPARTATE AMINOTRANSFERASE 14.0 U/L (10-37); CREATININE 1.9 mg/dL (0.5-1.3); GLOMERULAR FILTR. RATE CALC 34.0 mL/min (>90); GLUCOSE,RANDOM 93.0 mg/dL (70-105); SODIUM SERUM 137.0 mmol/L (136-145); TOTAL PROTEIN, SERUM 6.5 g/dL (6.0-8.3); UREA NITROGEN, BLOOD 21.0 mg/dL (7-18)
[2024-12-20] MEDS: PoTASSium chloRIDE 20MEQ ER 20 MEQ ERTAB PO PRN (17:53)
--- NOTE | 2024-12-20 18:18 | PN ---
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 Patient states that he recently moved to [place] about a month ago. He is originally from [place], [place]. He has underlying history of hypertension and has been maintained on multiple antihypertensives as outpatient. He has been maintained on lisinopril 20 mg daily as well as amlodipine 10 mg daily. Since moving to [place], he has not taken any antihypertensives for about a month due to problems establishing with a primary care physician as outpatient. Over the last four days, he has been having malaise, subjective fevers, chills, headache, nausea. He has been having diarrhea and reports having had about six loose stools today. Headache has been progressing and was severe in intensity and patient rates it as 10/10. Reports having some photophobia. Denies any neck pain or stiffness. Denies having previous history of stroke, seizures or epilepsy. Denies previous history of NE. Denies focal weakness of upper or lower extremities. Patient does report having history of COPD and has been maintained on home inhalers. Reports that close to January last year, he had infection of right shoulder prosthesis that was placed about 6-7 years ago with loosening of the screws. Patient was found to have prosthetic joint infection and received prolonged course of IV antibiotics which was followed by right shoulder reverse arthroplasty in [place]. Patient on bedside interview appears in distress with active nausea, vomiting, severe headache. On presentation to the hospital, patient was found to have blood pressure trending between 200s-220s/100s-130s systolic, noted to be afebrile with T-max of 96.6 F, heart rate of 85. Labs on presentation showed WBC count of 7900, hemoglobin 12.8, platelet count of 311,000. BMP showed sodium of 140, potassium 5.0, BUN of 14, creatinine 0.5, lactic acid of 2.8, magnesium 1.6, initial cardiac troponin 15. Patient underwent CT head without contrast which showed no acute intracranial a bnormality with no findings of acute hemorrhage, mass effect or acute territorial infarct. Chest x-ray showed no acute infiltrates, CT abdomen pelvis without contrast showed findings of no acute intra-abdominal or pelvic abnormality. Patient received bolus of NS in the ER along with doses of IV hydralazine and IV labetalol with no improvement of blood pressure, patient was subsequently initiated on Cardene drip. Patient will be admitted to ICU. Patient will be initiated on Cardene drip. Consultation with Neurology will be requested. We will have Cardiology and Intensive Care Service see this patient closely. Patient during his ER stay also started having chest pain, substernal with no associated radiation to the back or the shoulder blade. Patient received a dose of nitroglycerin with improvement of chest pain. We will see how patient progresses in the next 48-72 hours. Condition remains critical, plan of care was discussed with patient and family at bedside and personally discussed patient's case with multiple consultants. 12/18/2024: Patient is seen and evaluated in the room 216. , when examined patient is having the intention tremors. Since the patient is unable to take BP medications since for 1 month, patient presented with hypertensive emergency. Cardiology on the board and continue Cardene drip for blood pressure control. 2D echo ordered. Neurology consultation placed and they assessed it as a headache. Brain MRI revealed mild chronic microangiopathic white matter changes consistent with small-vessel ischemia. Heart healthy diet started. BIS on the board for his hypertensive emergency. 12/19/2024: Patient was evaluated at bedside in room 216. Patient was seen sitting comfortably in his chair along with several family members and eating breakfast. Patient reported feeling much better this morning and denied headaches, chest pain, abdominal pain, nausea or diarrhea. Nurse reported patient was more agitated and confused overnight however came back to his baseline this morning. Patient resumed his home blood pressure medication and the nicardipine drip is being slowly weaned off by critical care team. All the stroke workup has been negative so far. We will continue recommendations from Cardiology and critical Care teams. 12/20/2024: Patient was evaluated at the bedside in the room 216. Patient appeared okay, and reported no symptoms. Blood pressure well /53. Creatinine went from 1. 5-1.8. So urinalysis, urine electrolytes, and microscopic analysis to see the casts is ordered. BIS recommends, patient is off the Cardizem drip, downgrade to PCCU, since patient has pulmonary nodule r equire additional follow up. + REVIEW OF SYSTEMS CONSTITUTIONAL: Denies fevers, chills, or night sweats. No unintentional weight loss reported. NEUROLOGICAL: Admits to tremors in bilateral hands Denies headache, motor weakness, sensory deficit, vertigo/spinning sensation CARDIOVASCULAR: Denies any exertional angina, dyspnea on exertion, orthopnea, paroxysmal nocturnal dyspnea, palpitations PULMONARY: Denies any shortness of breath, cough, phlegm/sputum, hemoptysis, pleuritic chest pain. GASTROINTESTINAL: Denies any type of dysphagia to either liquids or solids. Denies nausea, vomiting, pyrosis, early satiety, abdominal pain, diarrhea, constipation GENITOURINARY: Denies frequency, urgency, nocturia, hematuria or incontinence DERMATOLOGIC: Denies rashes, itching, redness. PHYSICAL EXAM GENERAL APPEARANCE: The patient is awake, alert, appears frail and debilitated, he is vomiting on the stretcher, appears in mild distress NEUROLOGICAL: Cranial nerves II-XII grossly intact. Patient is moving both the upper and lower extremities with no focal deficits, patient is very soft spoken, essential tremor noted in bilateral upper extremities HEENT: Face is symmetric. Pupils are equal and reactive. Extraocular movements are intact. NECK: Supple. No JVD. No thyromegaly. No submental, submandibular, pre- /postauricular, occipital or supraclavicular lymphadenopathy. CHEST: Normal chest expansion. No Telemetry. LUNGS: Absence of any rales, rhonchi or any wheezing. CARDIOVASCULAR: Regular. S1 and S2 normal. No appreciable rubs, murmurs or gallops. ABDOMEN: Soft, nontender, and nondistended. There is no rebound, voluntary guarding, or rigidity. : Deferred. No Sazn. EXTREMITIES: Non-edematous and not cyanotic. No clubbing. Good capillary refill. SKIN: No skin breakdown. Vital Signs (last 8hr) Date Time Temp Pulse Resp B/P (MAP) Pulse Ox O2 Delivery O2 Flow Rate FiO2 12/20/24 16:00 97.9 59 17 150/69 96 Room Air 12/20/24 11:00 98.4 56 17 136/55 99 Room Air LABS: Laboratory: Test 12/20/24 14:10 12/20/24 03:55 12/19/24 13:53 12/19/24 05:33 Range/Units Sodium Level 137 136-145 mmol/L Potassium Level 3.6 3.5-5.1 mmol/L Chloride Level 103 101-111 mmol/L Carbon Dioxide Level 27 21-32 mmol/L Blood Urea Nitrogen 21 H 7-18 mg/dL Creatinine 1.9 H 0.5-1.3 mg/dL Glomerular Filtration Rate Calc 34 >90 mL/min Random Glucose 93 70-105 mg/dL Total Calcium 8.4 L 8.5-10.1 mg/dL Magnesium Level 3.10 H 1.80-2.40 mg/dL Total Bilirubin 0.4 0.2-1.0 mg/dL Aspartate Amino Transf (AST/SGOT) 14 10-37 U/L Alanine Aminotransferase (ALT/SGPT) 14 12-78 U/L Alkaline Phosphatase 92 50-136 U/L Total Protein 6.5 6.0-8.3 g/dL Albumin 3.3 L 3.5-5.0 g/dL White Blood Count 6.2 4.8-10.8 K/uL Red Blood Count 3.67 L 4.50-6.20 MIL/uL Hemoglobin 10.0 L 14.0-18.0 g/dL Hematocrit 30.9 L 42-54 % Mean Corpuscular Volume 84.2 79-99 fL Mean Corpuscular Hemoglobin 27.2 27.0-33.0 pg Mean Corpuscular Hemoglobin Concent 32.4 32.0-36.0 g/dL Red Cell Distribution Width 17.3 H 11.0-15.5 % Platelet Count 254 130-400 K/uL Mean Platelet Volume 9.2 7.5-10.5 fL Immature Granulocyte % (Auto) 0.3 0-1 % Neutrophils (%) (Auto) 58.1 40.0-77.0 % Lymphocytes (%) (Auto) 25.4 21.0-51.0 % Monocytes (%) (Auto) 13.0 3.0-13.0 % Eosinophils (%) (Auto) 2.4 0.0-8.0 % Basophils (%) (Auto) 0.8 0.0-5.0 % Neutrophils # (Auto) 3.6 1.8-7.7 K/uL Lymphocytes # (Auto) 1.6 1.0-4.8 K/uL Monocytes # (Auto) 0.8 0.1-1.0 K/uL Eosinophils # (Auto) 0.15 0.00-0.70 K/uL Basophils # (Auto) 0.05 0.00-0.20 K/uL Absolute Immature Granulocyte (auto 0.02 0-1 K/uL Nucleated Red Blood Cells 0.0 0.0-0.19 % Ammonia < 10 L 11-32 umol/L Troponin I High Sensitivity 63 4-75 ng/L Vitamin B12 Level 266 193-986 pg/mL Thyroid Stimulating Hormone (TSH) 0.78 0.36-3.74 uIU/mL Current Medications Medications (Trade) Dose Ordered Sig/Elie Route PRN Reason Start Time Stop Time Status Last Admin Dose Admin Acetaminophen (TYLenol 325MG TAB) 650 mg Q6H PRN PO MILD PAIN (1-3) 12/17/24 16:00 01/16/25 15:59 12/18/24 22:32 650 MG Albuterol (DUOneb) 1 udvial Q6H PRN IH SHORTNESS OF BREATH 12/17/24 16:00 12/17/24 16:02 DC Albuterol (DUOneb) 1 udvial Q6H PRN IH SHORTNESS OF BREATH 12/17/24 16:00 01/16/25 15:59 Amlodipine Besylate (NorvASC 5MG TAB) 10 mg DAILY PO 12/18/24 12:30 01/17/25 12:29 12/20/24 08:19 10 MG Atenolol (Atenolol) 25 mg DAILY PO 12/20/24 10:00 01/19/25 09:59 Atenolol (Atenolol) 50 mg DAILY PO 12/18/24 12:30 12/20/24 09:15 DC 12/18/24 12:18 50 MG Atorvastatin Calcium (LIPItor 40MG) 40 mg DAILY PO 12/19/24 09:00 01/18/25 08:59 12/20/24 08:19 40 MG Atorvastatin Calcium (LIPItor 40MG) 40 mg HS PO 12/17/24 21:00 12/19/24 02:59 DC 12/18/24 21:04 40 MG Benzonatate (Tessalon 100mg Caps) 100 mg Q8H PRN PO COUGH 12/18/24 11:30 01/17/25 11:29 Budesonide (Pulmicort 0.5 Mg/2ml) 0.5 mg BIDRESP IH 12/17/24 18:00 01/16/25 17:59 12/19/24 18:32 0.5 MG Enoxaparin Sodium (Lovenox (Pharmacy To Dose)) 1 unit Q24H SQ 12/18/24 14:30 12/18/24 14:31 DC Enoxaparin Sodium (Lovenox 60mg) 60 mg Q24H SQ 12/18/24 15:00 01/17/25 14:59 12/20/24 14:02 60 MG Famotidine (Pepcid 20mg Vial) 20 mg Q48H IV 12/17/24 21:00 12/17/24 16:03 DC Famotidine (Pepcid 20mg Tab) 20 mg DAILY PO 12/18/24 09:00 01/17/25 08:59 12/20/24 08:19 20 MG Gabapentin (NEURontin 100 mg CAP) 300 mg TID PO 12/19/24 14:00 01/18/25 13:59 12/20/24 14:01 300 MG Hydralazine HCl (APRESOLine 20MG INJ) 10 mg Q6H PRN IV ADMINISTER FOR SBP > 180 12/18/24 12:30 01/17/25 12:29 12/19/24 15:27 10 MG Hydralazine HCl ([id number] TAB) 50 mg BID PO 12/19/24 21:00 12/20/24 09:15 DC 12/20/24 08:19 50 MG Hydralazine HCl ([id number] TAB) 100 mg BID PO 12/20/24 09:30 01/19/25 09:29 12/20/24 09:46 50 MG Hydromorphone HCl (DiLAUDid 0.5MG INJ) 0.5 mg Q6H PRN IVP SEVERE PAIN (7-10) 12/17/24 16:30 12/22/24 16:29 Labetalol HCl (TRANdate 20MG SYG) 10 mg Q6H PRN IV IF SBP GREATER THAN 180 12/18/24 12:30 01/17/25 12:29 12/18/24 23:29 10 MG Lisinopril (Prinivil 20mg) 20 mg DAILY PO 12/18/24 12:30 01/17/25 12:29 12/20/24 08:19 20 MG Magnesium Sulfate 50 ml @ 0 mls/hr PROTOCOL IV 12/17/24 16:00 12/20/24 08:43 DC 12/20/24 04:51 25 MLS/HR Magnesium Sulfate 50 ml @ 0 mls/hr PROTOCOL PRN IV magnesium less than 2 12/20/24 09:00 01/19/25 08:59 12/20/24 10:36 25 MLS/HR Montelukast Sodium (SinguLAIR) 10 mg DAILY PO 12/19/24 09:00 01/18/25 08:59 12/20/24 08:19 10 MG Nicardipine HCl 25 mg/Sodium Chloride 250 ml @ 0 mls/hr PROTOCOL IV 12/17/24 15:30 12/20/24 09:15 DC 12/19/24 15:22 25 MLS/HR Nitroglycerin (Nitrostat) 0.4 mg AD PRN SL CHEST PAIN 12/17/24 16:30 01/16/25 16:29 Olanzapine (ZyPREXA 10MG/ML 1ML Vial) 2.5 mg ONCE STAT IM 12/19/24 02:26 12/19/24 02:58 DC 12/19/24 03:37 2.5 MG Ondansetron HCl (zoFRAN 4MG INJ) 4 mg Q6H PRN IVP NAUSEA/VOMITING 12/17/24 16:00 01/16/25 15:59 12/18/24 11:09 4 MG Piperacillin Sod/ Tazobactam Sod (Zosyn 3.375gm+NS 50ml) 3.375 gm Q8H IVPB 12/17/24 23:00 12/20/24 10:26 DC 12/20/24 07:41 3.375 GM Potassium Chloride 100 ml @ 100 mls/hr AD PRN IV POTASSIUM PROTOCOL 12/20/24 05:00 01/19/25 04:59 12/20/24 08:40 100 MLS/HR Potassium Chloride (K-Dur/Klor-Con 20meq) 20 meq AD PRN PO POTASSIUM PROTOCOL 12/20/24 05:00 01/19/25 04:59 12/20/24 17:53 20 MEQ Potassium Chloride (KCl 10% Elixir 20meq/15ml) 20 meq AD PRN PO POTASSIUM PROTOCOL 12/20/24 05:00 01/19/25 04:59 Sertraline HCl (ZOloft 50 mg tab) 100 mg DAILY PO 12/19/24 09:00 01/18/25 08:59 12/20/24 08:19 100 MG Sodium Chloride 1,000 ml @ 75 mls/hr [id number] IV 12/17/24 16:00 01/16/25 15:59 12/19/24 20:34 75 MLS/HR Trazodone HCl (DesyREL/OlepTRO) 50 mg HS PO 12/19/24 21:00 01/18/25 20:59 12/19/24 20:33 50 MG DIAGNOSTICS / RADIOLOGY: [ ] ASSESSMENT: Hypertensive emergency, POA Pulmonary nodule Essential tremor POA Severe headache, most likely due to hypertensive emergency POA Chest pain, likely secondary to hypertensive emergency POA Lactic acidosis, resolved Acute infectious gastroenteritis, POA CKD Stage III, POA History of noncompliance with antihypertensive therapy as outpatient for one month, POA Debility/frailty, POA History of uncontrolled hypertension, POA Hyperlipidemia, POA History of COPD, POA History of GERD, POA 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 status post extended course of IV antibiotics and repeat shoulder arthroplasty close to 03/2024, POA History of lower back surgery, POA PLAN: Hypertensive emergency, POA * At presentation blood pressure was 210/130 mmhg, with headache and photophobia * CT head was unremarkable ruled out acute intracranial pathologies * MRI brain showed no acute infarcts and only chronic microangiopathic white matter changes consistent with small-vessel ischemia * CT angio of head and neck is unremarkable except for atherosclerotic wall calc ifications * Continue nicardipine drip and wean it off as per Cardiology recommendation * Resume home blood pressure medications, lisinopril 20 mg, amlodipine 10 mg * Finally blood pressure well controlled 123/53 * As per be a BIS, * Patient is off from the Cardizem drip * Downgraded to PCCU Chest pain, most likely due to hypertensive emergency POA * Chest pain, substernal with no associated radiation to back or shoulder blade with a mild elevation in cardiac troponins which returned to normal levels * 2D echo showed left ventricular ejection fraction greater than 65%, moderate concentric left ventricular hypertrophy * 12 lead EKG showed sinus rhythm, with are BP and T-wave inversions to lead V1 through V3 * Cardiology on board and recommended to continue serial troponins and Cardene drip for now * Pulmonary nodule * Require additional follow up Acute infectious gastroenteritis, POA * On presentation patient reported nausea vomiting and diarrhea for several weeks * Ordered stool culture and stool PCR panel, awaiting results * Continue Zosyn ATTESTATION BY PHYSICIAN I have seen and examined the patient. I reviewed the documentation, medical decision making, and treatment plan as noted by the resident physician above. I agree with the findings and plan of care. MARE NICOLE MD ATTESTATION BY PHYSICIAN I have seen and examined the patient. I reviewed the documentation, medical decision making, and treatment plan as noted by the resident physician above. I agree with the findings and plan of care. MARE NICOLE MD, HARSHA MD Dec 20, 2024 18:18
[2024-12-20 19:12] LABS: APPEARANCE,URINE CLEAR (CLEAR); GLUCOSE, URINE (UA) NEGATIVE (NEGATIVE); LEUKOCYTE ESTERASE ,URINE NEGATIVE Leu/uL (NEGATIVE); NITRATE,URINE NEGATIVE (NEGATIVE); OCCULT BLOOD,URINE NEGATIVE (NEGATIVE)
[2024-12-20 19:20] LABS: ADD UA MICROSCOPIC NO
--- NOTE | 2024-12-20 20:43 | EKG ---
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
[2024-12-21] VITALS (8 sets, daily range): BP systolic 139–167; BP diastolic 51–74; PULSE 59–72; RESP 17–21; TEMP 97.5–98.2; O2SAT 95–99
[2024-12-21 05:22] LABS: IMMATURE GRANULOCYTE ABSOLUTE 0.05 K/uL (0-1); NUCLEATED RED BLOOD CELLS 0.0 % (0.0-0.19); PLATELET COUNT (AUTO) 275 K/uL (130-400); RED BLOOD CELL COUNT(AUTO) 3.63 MIL/uL (4.50-6.20); RED CELL DISTRIBUTION WIDTH 17.9 % (11.0-15.5); WHITE BLOOD COUNT (AUTO) 7.1 K/uL (4.8-10.8)
[2024-12-21 05:46] LABS: ASPARTATE AMINOTRANSFERASE 12.0 U/L (10-37); CREATININE 1.6 mg/dL (0.5-1.3); GLOMERULAR FILTR. RATE CALC 42.0 mL/min (>90); GLUCOSE,RANDOM 88.0 mg/dL (70-105); SODIUM SERUM 139.0 mmol/L (136-145); TOTAL PROTEIN, SERUM 5.5 g/dL (6.0-8.3); UREA NITROGEN, BLOOD 18.0 mg/dL (7-18)
[2024-12-21] MEDS: GABAPENTIN 300 MG CAPSULE PO SCH (09:05)
--- NOTE | 2024-12-21 10:07 | PN ---
[facility] PROGRESS NOTE Date Patient Seen: Dec 21, 2024 Time of Visit: 10:07 Supervising Physician: Franklin Pena MD Primary Care Physician: [Patient does not remember the neam- relocated here from [facility] ] Outpatient Specialists: [ ] Inpatient Consults: [BIS team for ICU management on Cardene drip ] PROBLEM LIST: Hypertensive emergency-POA, resolved hypertensive encephalopathy-POA, resolved ALEAH-POA, improving Lung nodules-POA Medical [id number]-[id number] Primary HTN COPD, not on exacerbation HLD GERD Mild dementia INTERVAL HISTORY: Pt is awake alert and oriented x 3. no major overnight events. Pts blood pressures has improved and controlled. Pt is currently at RA in no apparent distress. kidneys are improving Cr continues trending down now 1.6. From critical care standpoint we will sign off. Plan Continue follow cardiology recommendations Recommend continue with telemetry Dispo per primary team Patient with a pulmonary nodule we will require additional follow-up. REVIEW OF SYSTEMS: 12 point ROS reviewed with patient. Pertinent positives mentioned above. Otherwise negative. PHYSICAL EXAM: GENERAL: alert, weak, awake oriented x 3 HEENT: EOMI, Sclera non icteric, moist mucosa, tremors' on the lips NECK: Supple, no JVD, trachea midline LUNGS: Clear breath sounds bilaterally. No wheezes HEART: Regular rate and rhythm. Normal S1 and S2, without murmurs ABD: Abdomen soft, nontender. Bowel sounds present EXT: No clubbing cyanosis or edema, tremors on the arms NEURO: Alert and oriented to person, follows commands Vital Signs (last 8hr) Date Time Temp Pulse Resp B/P (MAP) Pulse Ox O2 Delivery O2 Flow Rate FiO2 12/21/24 09:08 72 149/72 12/21/24 09:03 68 149/78 12/21/24 07:13 72 18 12/21/24 07:12 72 18 N/A Room Air 12/21/24 07:00 98.1 70 18 149/74 99 Room Air 12/21/24 05:12 17 N/A Room Air 12/21/24 03:23 98.2 61 21 139/51 92 Room Air LABS: Hematology Labs: Test 12/21/24 04:28 Range/Units White Blood Count 7.1 4.8-10.8 K/uL Red Blood Count 3.63 L 4.50-6.20 MIL/uL Hemoglobin 10.0 L 14.0-18.0 g/dL Hematocrit 31.1 L 42-54 % Mean Corpuscular Volume 85.7 79-99 fL Mean Corpuscular Hemoglobin 27.5 27.0-33.0 pg Mean Corpuscular Hemoglobin Concent 32.2 32.0-36.0 g/dL Red Cell Distribution Width 17.9 H 11.0-15.5 % Platelet Count 275 130-400 K/uL Mean Platelet Volume 9.5 7.5-10.5 fL Immature Granulocyte % (Auto) 0.7 0-1 % Neutrophils (%) (Auto) 57.3 40.0-77.0 % Lymphocytes (%) (Auto) 26.4 21.0-51.0 % Monocytes (%) (Auto) 12.6 3.0-13.0 % Eosinophils (%) (Auto) 2.4 0.0-8.0 % Basophils (%) (Auto) 0.6 0.0-5.0 % Neutrophils # (Auto) 4.0 1.8-7.7 K/uL Lymphocytes # (Auto) 1.9 1.0-4.8 K/uL Monocytes # (Auto) 0.9 0.1-1.0 K/uL Eosinophils # (Auto) 0.17 0.00-0.70 K/uL Basophils # (Auto) 0.04 0.00-0.20 K/uL Absolute Immature Granulocyte (auto 0.05 0-1 K/uL Nucleated Red Blood Cells 0.0 0.0-0.19 % Chemistry Labs: Test 12/21/24 04:28 12/19/24 13:53 Range/Units Sodium Level 139 136-145 mmol/L Potassium Level 4.1 3.5-5.1 mmol/L Chloride Level 107 101-111 mmol/L Carbon Dioxide Level 25 21-32 mmol/L Blood Urea Nitrogen 18 7-18 mg/dL Creatinine 1.6 H 0.5-1.3 mg/dL Glomerular Filtration Rate Calc 42 >90 mL/min Random Glucose 88 70-105 mg/dL Total Calcium 8.0 L 8.5-10.1 mg/dL Magnesium Level 2.20 1.80-2.40 mg/dL Total Bilirubin 0.3 # 0.2-1.0 mg/dL Aspartate Amino Transf (AST/SGOT) 12 10-37 U/L Alanine Aminotransferase (ALT/SGPT) 13 12-78 U/L Alkaline Phosphatase 74 50-136 U/L Total Protein 5.5 L 6.0-8.3 g/dL Albumin 2.8 L 3.5-5.0 g/dL Ammonia < 10 L 11-32 umol/L Troponin I High Sensitivity 63 4-75 ng/L DIAGNOSTICS / RADIOLOGY RESULTS: [ ] PLAN NEURO: Minimize central acting medications as possible. Maintain fall precautions, adequate lighting during the day PULMONARY: Supplemental 02 as needed. Maintain aspiration precautions at all times CARDIOVASCULAR: Follow hemodynamics. Vital signs per facility protocol GI & NUTRITION: Continue with nutritional support. Continue stool softeners and laxatives as needed. KIDNEYS & ELECTROLYTES: Strict monitoring of intake, output and overall fluid balance. Avoid nephrotoxic medications to the extent possible. Medications to be dosed according to renal function. Monitor electrolytes and replace as needed ENDOCRINE: Maintain blood glucose between 100-180 at all times. Hypoglycemia protocol in place INFECTIOUS DISEASE: Trend temperature, WBC and procalcitonin level Follow cultures, deescalate antibiotics as soon as possible. Panculture if new onset fever ONCOLOGY/HEMATOLOGY/COAGULATION: Monitor for s/s of bleeding Monitor hemoglobin, coagulation studies as needed SKIN: Pressure ulcer prevention per facility protocol Specialty mattress ORTHO/REHAB: Continue PT/OT Prophylaxis: Continue GI and DVT prophylaxis Code Status: Full Resuscitation Disposition: TBD Other: Total patient care time exceeds 35 minutes excluding all procedures. ATTESTATION BY PHYSICIAN I have evaluated the patient chart, medical records, and spoke with appropriate staff. I reviewed the documentation, medical decision making, and treatment plan as noted by the mid-level provider above. I agree with the findings and plan of care. Franklin Pena MD, [facility] Dec 21, 2024 10:07
[2024-12-21] MEDS ORDERED: GABA-534 PO (11:50)
--- NOTE | 2024-12-21 15:00 | NUR ---
PT WAS DISCHARGED AFTER ADVISING PT ABOUT APPOINTMENTS AND ALSO TO MAKE SURE THAT HE TOOK THE CD THAT HAD BEEN MADE FOR HIM TO TAKE TO DR. BAUMAN'S OFFICE WHEN HE HAS HIS APPOINTMENT. PT AND VERBALIZE UNDERSTANDING.
--- NOTE | 2024-12-21 17:47 | DS ---
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 Patient stated that he recently moved to [place] about a month ago. He is originally from [place], [place]. He had underlying history of hypertension and had been maintained on multiple antihypertensives as outpatient. He had been maintained on lisinopril 20 mg daily as well as amlodipine 10 mg daily. Since moving to [place], he did not take any antihypertensives for about a month due to problems establishing with a primary care physician as outpatient. Over the last four days, he was having malaise, subjective fevers, chills, headache, nausea. He was having diarrhea and reported having had about six loose stools today. Headache was progressing and was severe in intensity and patient rates it as 10/10. Reported having some photophobia. Denied any neck pain or stiffness. Denied having previous history of stroke, seizures or epilepsy. Denied previous history of TN. Denied focal weakness of upper or lower extremities. On presenta tion to the hospital, patient was found to have blood pressure trending between 200s-220s/100s-130s systolic, noted to be afebrile with T-max of 96.6 F, heart rate of 85. Labs on presentation showed WBC count of 7900, hemoglobin 12.8, platelet count of 311,000. BMP showed sodium of 140, potassium 5.0, BUN of 14, creatinine 0.5, lactic acid of 2.8, magnesium 1.6, initial cardiac troponin 15. Patient underwent CT head without contrast which showed no acute intracranial abnormality with no findings of acute hemorrhage, mass effect or acute territorial infarct. Chest x-ray showed no acute infiltrates, CT abdomen pelvis without contrast showed findings of no acute intra-abdominal or pelvic abnormality. Patient received bolus of NS in the ER along with doses of IV hydralazine and IV labetalol with no improvement of blood pressure, patient was subsequently initiated on Cardene drip. 12/18/2024: Patient was Noted to have intention tremors. Cardiology on the board and continued Cardene drip for blood pressure control. 2D echo ordered. Neurology consultation placed and they assessed it as a headache. Brain MRI revealed mild chronic microangiopathic white matter changes consistent with small-vessel ischemia. Heart healthy diet started. 12/19/2024: Patient reported feeling much better this morning and denied headaches, chest pain, abdominal pain, nausea or diarrhea. Nurse reported stephanie chao was more agitated and confused overnight however came back to his baseline this morning. Patient resumed his home blood pressure medication and the nicardipine drip is being slowly weaned off by critical care team. All the stroke workup has been negative so far. 12/20/2024: Patient appeared okay, and reported no symptoms. Blood pressure well controlled 123 /53. Creatinine went from 1.5-1.8. So urinalysis, urine electrolytes, and microscopic analysis to see the casts is ordered. On 12/21/24, patient is vitally stable with blood pressure 149/72, heart rate 59. He is being discharged with instructions to Follow up with his Primary Care Physician in 3-5 days and Follow up with a coning machine operator for further workup of a pulmonary nodule. Has been advised to Take all prescribed blood pressure medications as directed, including 10mg amlodipine, atenolol 25mg and 20mg lisinopril daily. 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 Antony Grady] Reason for Consultation: [ICU consult for HTN emergency ] Primary Care Physician: [Patient does not remember the neam- relocated here from [facility] ] Outpatient Specialists: [ ] Inpatient Consults: [[facility] team for ICU management on Cardene drip ] PROBLEM LIST: Hypertensive emergency-POA Possible hypertensive encephalopathy-POA Intractable headache-POA Persistent diarrhea-POA Intractable vomiting-POA ALEAH-POA Hypomagnesemia-POA Hyperlactatemia-POA Lung nodules-POA Small left lobe hepatic cyst-POA Medical qro-ihhakxymks-HFD Tremors on the lips and arms, denies DX of parkinsons' disease-POA RLS Primary HTN COPD, not on exacerbation HLD Arthritis GERD Mood disorder Chronic pain Mild dementia PLAN: -Continue critical care management -Continue Cardene drip, wean-off per BP response -Give a one-time dose Clonidine; resume home BP meds -Obtain stool CX, GI panel and O&P -Anti-emetics PRN -Obtain 2decho in am -Monitor and replete electrolytes PRN -I do not see any indication for antibiotic at this time since his UA, CXR and CT AP were unremarkable and did not show any acute processes. Will continue to monitor pending stool studies -Education regarding adherence to treatment plan. He claims he did not receive his prescription eversince he moved here in [place] from [facility]. Consult CM for assistance -The rest of medical management per primary team Case was discussed and seen with my supervising physician. The above plan was formulated and agreed upon. SONJA HOGANCNJose Guadalupe Dec 17, 2024 17:11 Electronically Signed by: SONJA MEJIA02/17/24 2325 Electronically Co-Signed by: ANTONY ABDALLA MD12/18/24 0720 [facility] PROGRESS NOTE Date Patient Seen: Dec 20, 2024 Time of Visit: 10:28 Supervising Physician: Dr Franklin Barrios Primary Care Physician: [Patient does not remember the neam- relocated here from [facility] ] Outpatient Specialists: [ ] Inpatient Consults: [[facility] team for ICU management on Cardene drip ] PROBLEM LIST: Hypertensive emergency-POA hypertensive encephalopathy-POA ALEAH-POA Lung nodules-POA Medical yjn-jpzdsupxau-SQQ Primary HTN COPD, not on exacerbation HLD GERD Mild dementia INTERVAL HISTORY: Patient was seen and examined, sitting comfortably in bed, talking with family members at bedside No acute events overnight Afebrile Good saturations on room air Systolics remain in the 150s were greater, heart rate at times is below 60 when he sleeps He is comfortable, reporting no pain or discomfort, Plan Continue follow cardiology recommendations Patient is off the Cardizem drip, we are adjusting his medications We will downgrade to PCCU Recommend continue with telemetry [facility] PROGRESS NOTE Date Patient Seen: Dec 21, 2024 Time of Visit: 10:07 Supervising Physician: Franklin Barrios MD Primary Care Physician: [Patient does not remember the neam- relocated here from [facility] ] Outpatient Specialists: [ ] Inpatient Consults: [[facility] team for ICU management on Cardene drip ] PROBLEM LIST: Hypertensive emergency-POA, resolved hypertensive encephalopathy-POA, resolved ALEAH-POA, improving Lung nodules-POA Medical yws-dxxnchgqbk-MUE Primary HTN COPD, not on exacerbation HLD GERD Mild dementia INTERVAL HISTORY: Pt is awake alert and oriented x 3. no major overnight events. Pts blood pressures has improved and controlled. Pt is currently at RA in no apparent distress. kidneys are improving Cr continues trending down now 1.6. From critical care standpoint we will sign off. Plan Continue follow cardiology recommendations Recommend continue with telemetry Dispo per primary team Franklin Barrios MD, [facility] Dec 21, 2024 10:07 Electronically Signed by: MITESH MCKEON OLHRSG05/10/25 1743 Electronically Co-Signed by: FRANKLIN BARRIOS MD12/22/24 0801 CARDIOLOGY CONSULT NOTE: Reason for consult: Chest pain ASSESSMENT CHEST PAIN Unable to fully describe pain Initial 12 LEAD EKG shows sinus rhythm at a rate of 63 with a RBBB and T wave inversions to leads III, V1 through V3 HYPERTENSIVE EMERGENCY Initial BP >200 systolic Cardene drip CORE MEASURES Pending OTHER MEDICAL PROBLEMS Reviewed PLAN 12/17/2024 Echocardiogram will be ordered Continue with serial troponin enzymes Continue Cardene drip for now Continue with stroke workup ATTESTATION Case discussed with JUAN Hernandez BRANCH LEAD Dec 17, 2024 18:43 Electronically Signed by: JUAN ARAUJO [facility]02/17/24 1843 Electronically Co-Signed by: Cardiology progress note 12/17/2024 Echocardiogram will be ordered Continue with serial troponin enzymes Continue Cardene drip for now Continue with stroke workup 12/18/2024 Patient more awake and alert today Serial troponin level with some slight elevation at 145-->136 Echocardiogram results showing EF at 65% Will start lovenox 1mg/kg SQ BID oral antihypertensive meds have been started and will continue to wean off cardene drip 12/19/2024 Remains on cardene drip Hydralazine was started today Continue with lisinopril Denies any more chest pain Will order another serum troponin and if still eleveated, will condisder a CCTA of heart JUAN ARAUJO [facility]ANCH [facility]AD Dec 19, 2024 14:28 Electronically Signed by: JUAN ARAUJO [facility]02/19/24 1428 Electronically Co-Signed by: Procedure(s): PATIENT: MARCELLO CRYSTAL MR#: [id number] : 1940 SEX: M AGE: 84 LOCATION: [facility] ORDER 134 STATUS: ADM IN REPORT#: [id number] SERVICE 1340 REASON: n/v/d ORDERING PHYSICIAN: RITIKA MARIO PAC PROCEDURE: ABD PEL WO - CT ABDOMEN/PELVIS W/O CONTRAST EXAM: CT ABDOMEN AND PELVIS WITHOUT CONTRAST Technique: Multidetector helical computed tomography of the abdomen and pelvis from the diaphragms through the inguinal region with axial images and multiplanar reformations; dose reduction per ALARA with automatic exposure control and iterative reconstruction. CTDIvol 5.4 mGy; DLP 286.60 mGy???cm. Contrast: No intravenous contrast administered. Clinical Information: Nausea, vomiting, diarrhea; abdominal pain. Comparison: None Findings: Lung bases: Trace right pleural effusion is present; a 4 mm calcified nodule is seen in the left lower lobe; multiple additional 1???2 mm nodular opacities are present in both lower lobes; no lobar collapse or focal consolidation is identified. Liver: Normal size and morphology with smooth contour; no focal hepatic lesion is identified on non-contrast computed tomography; no intrahepatic biliary ductal dilatation. Small left lobe hepatic cyst follow up with US. Gallbladder and biliary tree: Gallbladder wall thickness is within normal limits with smooth margins and homogeneous luminal contents; no cholelithiasis or pericholecystic inflammatory change is identified; common bile duct caliber is within normal limits where visualized. Pancreas: Normal size and attenuation; main pancreatic duct is not dilated; no peripancreatic fluid or fat stranding. Spleen: Normal size and attenuation without focal lesion. Adrenals: Normal morphology and attenuation bilaterally. Kidneys and ureters: Normal renal size and attenuation bilaterally without hydronephrosis, nephrolithiasis, or focal renal mass on non-contrast images. Stomach and duodenum: Stomach is distended without wall thickening; gastroesophageal junction and pylorus are unremarkable. Small bowel: Jejunal and ileal loops are normal in caliber without wall thickening or obstruction. Colon and appendix: Colon and rectum contain fecal material without abnormal distention; no appendiceal enlargement or periappendiceal inflammatory change is identified. Peritoneum and mesentery: No free intraperitoneal fluid or free air; mesentery and omentum are unremarkable. Lymph nodes: No pathologically enlarged abdominal or pelvic lymph nodes are identified. Retroperitoneum and vasculature: Moderate atherosclerotic calcifications of the abdominal aorta and bilateral iliac arteries are present; aorta and inferior vena cava are normal in course and caliber. Pelvic organs: Urinary bladder demonstrates normal wall thickness and contour; prostate is normal in size. Abdominal wall/soft tissues: No acute abnormality of the abdominal wall or paraspinal soft tissues. Osseous structures: Degenerative changes of the visualized spine are present; prior laminectomies at L3, L4, and L5 are noted; posterior transpedicular screw fixation involving L2 and L3 is present; multilevel spondylosis is noted; no acute osseous abnormality is identified. Impression: * No acute intra-abdominal or pelvic abnormality on non-contrast computed tomography???no obstruction, appendicitis, abscess, free air, or free fluid is identified. Small left lobe hepatic cyst follow up with US. * Trace right pleural effusion and small pulmonary nodules at the lung bases, including a 4 mm calcified nodule in the left lower lobe and multiple 1???2 mm nodules bilaterally; the calcified nodule is benign in appearance and the sub-5 mm nodules are of low clinical significance in low-risk patients???consider guideline-based clinical follow-up only if the patient is high risk for primary lung cancer. * Moderate atherosclerotic calcifications of the abdominal aorta and bilateral iliac arteries. * Postoperative changes of the lumbar spine with multilevel degenerative spondylosis and prior laminectomies at L3???L5 and transpedicular screw fixation at L2???L3, without acute osseous abnormality. /[place] DICTATED BY: RONN FLEMING MD DATE: 12/17/241658 ELECTRONICALLY SIGNED BY: RONN FLEMING MD DATE: 12/17/241658 PATIENT: MARCELLO CRYSTAL MR#: [id number] : 02/22/1958 SEX: M AGE: 66 LOCATION: [facility] ORDER 134 STATUS: REG [facility] REPORT#: [id number] SERVICE 1340 REASON: cp ORDERING PHYSICIAN: RITIKA MARIO [facility] PROCEDURE: CXR1VW - CHEST 1VW EXAM: CR Chest, 1 View. CLINICAL HISTORY: cp COMPARISON: None provided. FINDINGS: LUNGS: The lungs show no infiltrate or other acute finding. PLEURAL SPACES: No pleural effusion or pneumothorax. MEDIASTINUM: The cardiomediastinal silhouette is within normal limits. BONES: No acute osseous abnormality. Partially included right shoulder prosthesis is present. IMPRESSION: No acute cardiopulmonary pathology is evident. /[place] DICTATED BY: NHOEMI DAVIS Jr., MD DATE: 12/17/241600 ELECTRONICALLY SIGNED BY: NOHEMI DAVIS Jr., MD DATE: 12/17/241600 PATIENT: MARCELLO CRYSTAL MR#: [id number] : 02/22/1958 SEX: M AGE: 66 LOCATION: [facility] ORDER 134 STATUS: REG [facility] REPORT#: [id number] SERVICE 134 REASON: n/v/d ORDERING PHYSICIAN: RITIKA MARIO PAC PROCEDURE: HEAD WO - CT HEAD/BRAIN W/O CONTRAST EXAM: CT BRAIN WITHOUT CONTRAST Technique: Axial computed tomography of the head with coronal and sagittal reformations. Radiation dose reduction was achieved using ALARA principles including automatic exposure control and iterative reconstruction with parameter adjustments according to patient size and weight. CTDIvol 49.3 mGy; DLP 920.9 mGy???cm. Contrast: No intravenous contrast administered. Clinical Information: Nausea, vomiting, and diarrhea; altered mental status. Comparison: None Findings: Brain: Brain parenchyma demonstrates normal attenuation without focal parenchymal abnormality; meza???white matter differentiation is maintained; brainstem and cerebellum are unremarkable. Ventricles and extra-axial spaces: Ventricular size and configuration are within normal limits; prominence of the sulci, basal cisterns, and sylvian fissures is consistent with age-related parenchymal volume loss; no extra-axial fluid collection or hemorrhage is identified; midline structures are nondisplaced. Skull and extracranial soft tissues: Skull base and calvarium show normal density without destructive lesion; extracranial soft tissues are unremarkable. Orbits: Intraorbital contents are unremarkable. Paranasal sinuses and mastoid air cells: Mucosal polyp in the left maxillary sinus; remaining visualized paranasal sinuses are clear and mastoid air cells are well aerated. Impression: * No acute intracranial abnormality, including no acute hemorrhage, mass effect, or acute territorial infarct. * Age-related parenchymal volume loss. * Chronic small vessel ischemic changes in the periventricular and subcortical white matter. * Left maxillary sinus mucosal polyp. /[place] DICTATED BY: RONN FLEMING MD DATE: 12/17/241553 ELECTRONICALLY SIGNED BY: RONN FLEMING MD DATE: 12/17/241553 PATIENT: MARCELLO CRYSTAL MR#: [id number] : 1940 SEX: M AGE: 84 LOCATION: [facility] ORDER 47 STATUS: ADM IN REPORT#: [id number] SERVICE 44 REASON: assess for carotid artery stenosis ORDERING PHYSICIAN: JC HORN MD PROCEDURE: CAROTID - US CAROTID DUPLEX EXAMINATION: DUPLEX ULTRASOUND EXAMINATION OF THE BILATERAL CAROTID AND VERTEBRAL ARTERIES. CLINICAL HISTORY: To assess for carotid artery stenosis. COMPARISON: None provided. TECHNIQUE: Real-time ultrasound scan of the bilateral carotid and vertebral arteries, 2-D grayscale, with color Doppler flow and spectral waveform analysis. FINDINGS: Color and spectral Doppler interrogation of the carotid vessels on the right demonstrate peak systolic velocities as follows: CCA (Proximal, mid, and distal): 94, 91, and 86 cm/s respectively. Bulb: 57 cm/s. ECA: 298 cm/s. ICA (Proximal, mid, and distal): 90, 98, and 107 cm/s respectively. Vertebral artery demonstrates antegrade flow: 93 cm/s. Right ICA/CCA ratio: 1.1 Peak systolic velocities on the left are as follows: CCA (Proximal, mid, and distal): 104, 91, and 85 cm/s respectively. Bulb: 106 cm/s. ECA: 284 cm/s. ICA (Proximal, mid, and distal): 83, 140, and 226 cm/s respectively. Vertebral artery demonstrates antegrade flow: 68 cm/s. Left ICA/CCA ratio: 2.2 Both the common carotid arteries and their branches reveal mild intimal thickening. There are calcified plaques in the bilateral carotid bulb and right distal carotid artery without significant stenosis. There is kinking of the left internal carotid artery. There are raised velocities in the bilateral external carotid and left distal internal carotid arteries. IMPRESSION: Mild intimal thickening in the bilateral carotid arteries and their branches. Calcified plaques in the bilateral carotid bulb and right distal carotid artery without significant stenosis. Raised velocities in the bilateral external carotid and left distal internal carotid arteries. Left ICA/CCA ratio is 2.2. Recommend CT/MR angiogram. /[place] DICTATED BY: NOHEMI DAVIS Jr., MD DATE: 12/18/24699 ELECTRONICALLY SIGNED BY: NOHEMI DAVIS Jr., MD DATE: 12/18/24699 PATIENT: MARCELLO CRYSTAL MR#: [id number] : 1940 SEX: M AGE: 84 LOCATION: [facility] ORDER 1550 STATUS: ADM IN REPORT#: [id number] SERVICE 1546 REASON: HTN emergency, r/o Renal artery stenosis ORDERING PHYSICIAN: JC HORN MD PROCEDURE: MATEO ART DO - US RENAL ARTERY DOPPLER EXAMINATION: ULTRASOUND EXAMINATION OF THE KIDNEYS WITH SPECTRAL DOPPLER OF THE RENAL VESSELS. CLINICAL HISTORY: Hypertension emergency. COMPARISON: None. TECHNIQUE: Grayscale and color ultrasound images of the kidneys, and spectral Doppler of the renal arteries are submitted. FINDINGS: The right kidney is smaller in caliber, measures 5.3 x 2.6 x 3.2 cm and the left kidney measures 9.3 x 4.1 x 4.6 cm in craniocaudal, AP, and transverse dimensions respectively. There is renal cortical thinning, and increased cortical echogenicity. There is no renal calculus, mass, or hydronephrosis. The left kidney is normal in caliber, measures 9.3 x 4.1 x 4.6 cm. There is normal renal cortical thickness, and cortical echogenicity. There is no renal calculus, mass, or hydronephrosis Right The right main renal and intra renal arteries are not well visualized. Left Peak systolic velocity within the distal main left renal artery is 127 cm/s (resistive index of 0.71). The proximal and mid segments are obscured by overlying bowel gas. Peak systolic velocities within the left intrarenal upper, mid, and lower pole arteries are 55, 66, and 56 cm/s respectively (resistive index of 0.67, 0.61, and 0.63). Peak systolic velocity within the abdominal aorta at the level of the renal arteries is 157 cm/s Left renal to aortic ratio: 0.8 IMPRESSION: There is no left renal arterial stenosis by measurement criteria. Atrophic right kidney. /[place] DICTATED BY: NOHEMI DAVIS Jr., MD DATE: 12/18/24699 ELECTRONICALLY SIGNED BY: NOHEMI DAVIS Jr., MD DATE: 12/18/24699 PATIENT: MARCELLO CRYSTAL MR#: [id number] : 1940 SEX: M AGE: 84 LOCATION: [facility] ORDER 1604 STATUS: ADM IN REPORT#: [id number] SERVICE 1603 REASON: HTN emergency, severe headache ORDERING PHYSICIAN: JC HORN MD PROCEDURE: CTA [facility] - CT ANGIO HEAD AND NECK ADDENDUM REPORT ADDENDUM: Results were shared by telephone at 10:12 PM EST on 12-17-24 and acknowledged by Jc Arnold. /[place] EXAM: CTA Head and Neck with Intravenous Contrast. CLINICAL HISTORY: HTN emergency, severe headache. TECHNIQUE: Axial CTA images of the head and neck were performed with and without intravenous contrast in the arterial phase. Coronal and sagittal reformatted images were generated and reviewed. 3-D reformatted images generated on an independent workstation were also reviewed. NASCET criteria were used in the assessment of stenosis. COMPARISON: None provided. FINDINGS: VASCULATURE:NECK: COMMON CAROTID ARTERIES No significant stenosis. No dissection or occlusion. Mild atherosclerotic wall calcifications in both carotid bulbs with less than 20% stenosis. EXTERNAL CAROTID ARTERIES Patent. INTERNAL CAROTID ARTERIES No stenosis by NASCET criteria. No dissection or occlusion. There is tortuosity and medialization of the right proximal cervical ICA. Mild atherosclerotic wall calcifications in the proximal left cervical ICA. Mild non-obstructive atherosclerotic wall calcifications in both cavernous ICA with less than 20% stenosis. VERTEBRAL ARTERIES No significant stenosis. No dissection or occlusion. HEAD: ANTERIOR CEREBRAL ARTERIES No significant stenosis. No occlusion. No aneurysm. MIDDLE CEREBRAL ARTERIES No significant stenosis. No occlusion. No aneurysm. POSTERIOR CEREBRAL ARTERIES No significant stenosis. No occlusion. No aneurysm. BASILAR ARTERY No significant stenosis. No occlusion. No aneurysm. OTHER: SOFT TISSUES No acute finding. BONES No acute osseous abnormality. IMPRESSION: Unremarkable CTA of the head and neck except for atherosclerotic wall calcifications as described. /[place] DICTATED BY: NOHEMI DAVIS Jr., MD DATE: 12/17/24 4550 ELECTRONICALLY SIGNED BY: DATE: EXAM: CTA Head and Neck with Intravenous Contrast. CLINICAL HISTORY: HTN emergency, severe headache. TECHNIQUE: Axial CTA images of the head and neck were performed with and without intravenous contrast in the arterial phase. Coronal and sagittal reformatted images were generated and reviewed. 3-D reformatted images generated on an independent workstation were also reviewed. NASCET criteria were used in the assessment of stenosis. COMPARISON: None provided. FINDINGS: VASCULATURE:NECK: COMMON CAROTID ARTERIES No significant stenosis. No dissection or occlusion. Mild atherosclerotic wall calcifications in both carotid bulbs with less than 20% stenosis. EXTERNAL CAROTID ARTERIES Patent. INTERNAL CAROTID ARTERIES No stenosis by NASCET criteria. No dissection or occlusion. There is tortuosity and medialization of the right proximal cervical ICA. Mild atherosclerotic wall calcifications in the proximal left cervical ICA. Mild non-obstructive atherosclerotic wall calcifications in both cavernous ICA with less than 20% stenosis. VERTEBRAL ARTERIES No significant stenosis. No dissection or occlusion. HEAD: ANTERIOR CEREBRAL ARTERIES No significant stenosis. No occlusion. No aneurysm. MIDDLE CEREBRAL ARTERIES No significant stenosis. No occlusion. No aneurysm. POSTERIOR CEREBRAL ARTERIES No significant stenosis. No occlusion. No aneurysm. BASILAR ARTERY No significant stenosis. No occlusion. No aneurysm. OTHER: SOFT TISSUES No acute finding. BONES No acute osseous abnormality. IMPRESSION: Unremarkable CTA of the head and neck except for atherosclerotic wall calcifications as described. /[place] DICTATED BY: NOHEMI DAVIS Jr., MD DATE: 12/17/242151 ELECTRONICALLY SIGNED BY: NOHEMI DAVIS Jr., MD DATE: 12/17/242151 PATIENT: MARCELLO CRYSTAL MR#: [id number] : 1940 SEX: M AGE: 84 LOCATION: 2CH ORDER 58 STATUS: ADM IN REPORT#: [id number] SERVICE 54 REASON: severe headache, HTN emergency, r/o changes of acute CVA ORDERING PHYSICIAN: JC HORN MD PROCEDURE: BRAIN WO - MR BRAIN WO CON NAME OF THE EXAM:MRI BRAIN WITHOUT INTRAVENOUS CONTRAST CLINICAL INFORMATION: Severe headache; hypertensive emergency; rule out acute cerebrovascular accident. TECHNIQUE: Multiplanar, multisequence non-contrast magnetic resonance imaging of the brain including DWI/ADC, FLAIR, T2-weighted, T1-weighted, and susceptibility-weighted imaging (stroke protocol). CONTRAST: No intravenous contrast administered. COMPARISON:None provided. FINDINGS: BRAIN: No restricted diffusion to suggest acute infarct and no mass effect or acute intracranial hemorrhage. VENTRICLES AND EXTRA-AXIAL SPACES: Ventricles and sulci are age-appropriate in size with no extra-axial fluid collection. BRAINSTEM AND CEREBELLUM: Normal signal and morphology without focal abnormality. VASCULAR FLOW VOIDS: Expected arterial and dural venous sinus flow voids are preserved. ORBITS: No intraorbital abnormality. PARANASAL SINUSES AND MASTOID AIR CELLS: Right maxillary sinus mucosal polyp is present and mastoid air cells are unopacified. WHITE MATTER: Scattered periventricular and subcortical T2/FLAIR hyperintensities consistent with chronic microangiopathic change. IMPRESSION: * No acute infarct, hemorrhage, or mass effect on non-contrast stroke-protocol MRI. * Mild chronic microangiopathic white-matter changes consistent with small-vessel ischemia; correlate with vascular risk factors. * Right maxillary sinus mucosal polyp; manage conservatively unless symptomatic. /[place] DICTATED BY: KAT BO MD DATE: 12/18/241619 ELECTRONICALLY SIGNED BY: KAT BO MD DATE: 12/18/241619 PATIENT: MARCELLO CRYSTAL MR#: [id number] : 1940 SEX: M AGE: 84 LOCATION: [facility] ORDER 1550 STATUS: ADM IN [facility] REPORT#: [id number] SERVICE 1549 REASON: HTN emergency, Dr. Martines to read ORDERING PHYSICIAN: JC HORN MD PROCEDURE: ECHO CMP - ECHO 2-D COMPLETE APPROVED REPORT EXAM: Two-dimensional and M-mode echocardiogram with Doppler and color Doppler. INDICATION ICD: Hypertension emergency 2D Dimensions RVDd 3.7 cm LVEF(%) 64.4 (>50%) LVED Vol(simp.) 76.0 mL IVSd 1.4 (0.7-1.1cm) FS(%) 35 % LVES Vol(simp.) 27.0 mL LVDd 4.2 (3.8-5.6cm) LA (2D) 4.9 (1.6-4.0cm) LVEF(%, simp.) 65 % PWd 1.3 (0.7-1.1cm) Ao Root(2D) 3.2 (2.0-3.7cm) LA ESV INDEX (BP) 32.40 mL/m2 IVSs 1.6 cm LVOT diam 2.1 (1.8-2.4cm) LVDs 2.7 (2.5-4.0cm) PWs 2.0 cm Deformation Strain Apical 4 -17.9 % Apical 2 -17.5 % Apical 3 -15.7 % Global Strain -17.0 % M-Mode Dimensions EPSS 0.4 cm LA (MM) 5.1 (1.6-4.0cm) Ao Root(MM) 3.1 (2.0-3.7cm) Aortic Valve AoV Vmax 2.3 m/s Ao Peak GR 20.3 mmHg LVOT Vmax 1.3 m/s AoV VTI 0.4 m Ao Mean GR 10.7 mmHg LVOT VTI 0.30 m KITTY (VMAX) 1.96 cm2 KITTY (VTI) 2.5 cm2 Mitral Valve MV E Vmax 52.9 cm/s DECEL Time 238 ms MV A Vmax 68.5 cm/s P 1/2 T 41 ms E/A ratio 0.8 MVA (PHT) 5.4 cm2 TDI E/E' Medial 9.9 E/E' Lateral 7.0 Medial E' Peak V 5.34 cm/s Lateral E' Peak V 7.54 cm/s Pulmonary Valve PV Vmax 1.5 m/s PI End Cara. Rolan 107.3 cm/s PV Mean GR 3.5 mmHg PV Peak GR 8.6 mmHg Tricuspid Valve TR Vmax 2.5 m/s RAP (EST) 3 mmHg RVSP 29.0 mmHg TR Peak GR 26.0 mmHg Left Ventricle The left ventricle is normal size. GLS -17.0% Moderate concentric left ventricular hypertrophy. The LVEF is > 65%. Normal diastolic function Right Ventricle The right ventricle is normal size. The right ventricular systolic function is normal. Atria The left atrium size is normal. The right atrium size is normal. Aortic Valve The aortic valve is trileaflet thickened. No aortic regurgitation is present. There is no aortic valvular stenosis. Mitral Valve The mitral valve is mildly thickened. There is trace of mitral valve regurgitation noted. There is no mitral valve stenosis. Tricuspid Valve The tricuspid valve is normal in structure. There is no tricuspid valve regurgitation noted. Pulmonic Valve The pulmonary valve is normal in structure. There is trace of pulmonic valvular regurgitation. Great Vessels The aortic root is normal in size. The IVC is normal in size and collapses >50% with inspiration. Pericardium There is no pericardial effusion. Other Information Quality : Adequate Conclusion The LVEF is > 65%. Normal diastolic function Moderate concentric left ventricular hypertrophy. The left ventricle is normal size. GLS -17.0% The aortic valve is trileaflet thickened. The mitral valve is mildly thickened. Normal pulmonary pressures Study quality was adequate DICTATED BY: KRISTIE HOOVER MD DATE: 12/18/24 0751 ELECTRONICALLY SIGNED BY: KRISTIE HOOVER MD DATE: 12/18/24 0933 Assessment/Plan: ASSESSMENT: Hypertensive emergency, POA Pulmonary nodule Essential tremor POA Severe headache, most likely due to hypertensive emergency POA Chest pain, likely secondary to hypertensive emergency POA Lactic acidosis, resolved Acute infectious gastroenteritis, POA CKD Stage III, POA History of noncompliance with antihypertensive therapy as outpatient for one month, POA Debility/frailty, POA History of uncontrolled hypertension, POA Hyperlipidemia, POA History of COPD, POA History of GERD, POA 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 Follow up with a coning machine operator as well for further workup of a pulmonary nodule. Check your blood pressure at home regularly and if you notice any headache, chest pain, dizziness, or vision changes, come to the nearest emergency department. Take all prescribed blood pressure medications as directed, including 10mg amlodipine, atenolol 25mg and 20mg lisinopril daily. Home Medications: Active Scripts Amlodipine Besylate (Amlodipine Besylate) 10 Mg Tablet, 1 TAB PO DAILY for 30 Days, #30 TAB 0 Refills Prov:NATE HARDIN MD 12/22/24 Lisinopril (Lisinopril) 20 Mg Tablet, 1 TAB PO DAILY for 30 Days, #30 TAB 0 Refills Prov:NATE HARDIN MD 12/22/24 Atenolol (Atenolol) 50 Mg Tablet, 1 TAB PO DAILY for 30 Days, #30 TAB 0 Refills Prov:NATE HARDIN MD 12/22/24 Gabapentin (Gabapentin) 400 Mg Capsule, 300 MG PO BID for 30 Days, #60 CAP Prov:NATE HARDIN MD 12/21/24 Reported Medications Trazodone HCl (Trazodone HCl) 50 Mg Tablet, 1 TAB PO HS for 30 Days, #30 TAB 0 Refills 12/17/24 Simethicone (Simethicone) 80 Mg Tab.chew, 1 TAB PO TID for gas for 6 Days, #20 TAB 0 Refills 12/17/24 Sertraline HCl (Sertraline HCl) 100 Mg Tablet, 1 TAB PO DAILY for 30 Days, #30 TAB 0 Refills 12/17/24 Pantoprazole Sodium (Pantoprazole Sodium) 40 Mg Tablet.dr, 1 TAB PO DAILY for 30 Days, #30 TAB 0 Refills 12/17/24 Oxycodone HCl (Oxycodone HCl) 10 Mg Tablet, 10 MG PO AD, TAB 12/17/24 Montelukast Sodium (Montelukast Sodium) 10 Mg Tablet, 1 TAB PO DAILY for 30 Days, #30 TAB 0 Refills 12/17/24 Lisinopril (Lisinopril) 20 Mg Tablet, 1 TAB PO DAILY for 30 Days, #30 TAB 0 Refills 12/17/24 Gabapentin (Gabapentin) 100 Mg Capsule, 300 MG PO TID, CAP 12/17/24 Cyclobenzaprine HCl (Cyclobenzaprine HCl) 10 Mg Tablet, 1 TAB PO HS for muscle spasms for 30 Days, #30 TAB 0 Refills 12/17/24 Atorvastatin Calcium (LIPITOR) 40 Mg Tablet, 1 TAB PO DAILY for 30 Days, #30 TAB 0 Refills 12/17/24 Atenolol (Atenolol) 50 Mg Tablet, 1 TAB PO DAILY for 30 Days, #30 TAB 0 Refills 12/17/24 Amlodipine Besylate (Amlodipine Besylate) 10 Mg Tablet, 1 TAB PO DAILY for 30 Days, #30 TAB 0 Refills 12/17/24 New Medications: Gabapentin (Gabapentin) 400 Mg Capsule 300 MG PO BID for 30 Days, #60 CAP Continued Medications: Amlodipine Besylate (Amlodipine Besylate) 10 Mg Tablet 1 TAB PO DAILY for 30 Days, #30 TAB 0 Refills Atenolol (Atenolol) 50 Mg Tablet 1 TAB PO DAILY for 30 Days, #30 TAB 0 Refills Atorvastatin Calcium (Lipitor) 40 Mg Tablet 1 TAB PO DAILY for 30 Days, #30 TAB 0 Refills Cyclobenzaprine HCl (Cyclobenzaprine HCl) 10 Mg Tablet 1 TAB PO HS for muscle spasms for 30 Days, #30 TAB 0 Refills Gabapentin (Gabapentin) 100 Mg Capsule 300 MG PO TID, CAP Lisinopril (Lisinopril) 20 Mg Tablet 1 TAB PO DAILY for 30 Days, #30 TAB 0 Refills Montelukast Sodium (Montelukast Sodium) 10 Mg Tablet 1 TAB PO DAILY for 30 Days, #30 TAB 0 Refills Oxycodone HCl (Oxycodone HCl) 10 Mg Tablet 10 MG PO AD, TAB Pantoprazole Sodium (Pantoprazole Sodium) 40 Mg Tablet.dr 1 TAB PO DAILY for 30 Days, #30 TAB 0 Refills Sertraline HCl (Sertraline HCl) 100 Mg Tablet 1 TAB PO DAILY for 30 Days, #30 TAB 0 Refills Simethicone (Simethicone) 80 Mg Tab.chew 1 TAB PO TID for gas for 6 Days, #20 TAB 0 Refills Trazodone HCl (Trazodone HCl) 50 Mg Tablet 1 TAB PO HS for 30 Days, #30 TAB 0 Refills Time spent arranging discharge: 31-60 minutes ATTESTATION BY PHYSICIAN I have seen and examined the patient. I reviewed the documentation, medical decision making, and treatment plan as noted by the resident physician above. I agree with the findings and plan of care. MARE NICOLE MD, MUHAMMAD H MD Dec 21, 2024 17:47
--- NOTE | 2024-12-22 09:40 | NUR ---
ENTERED CHART DUE TO QUESTION FROM [facility]. REFERRED TO 2ND FLOOR.
[2024-12-22] MEDS ORDERED: ATEN50TA PO (13:21)
[2024-12-22] MEDS ORDERED: LISI20TA24 PO (13:21)
[2024-12-22] MEDS ORDERED: AMLO-258 PO (13:21)
== END 2024-12-21 15:00 | disposition home or self-care (01) | DRG 71 ==
LOC: EDH 13:31 → EDBD 13:31 → EDHIP 15:42 → 2CH 20:39 → 2AH 12-20 10:30
PROVIDERS: ADMIT Internal Medicine; ATTEND Internal Medicine
DX: I67.4 Hypertensive encephalopathy (principal); A09 Infectious gastroenteritis and colitis, unspecified; E87.20 Acidosis, unspecified; I16.1 Hypertensive emergency; N17.9 Acute kidney failure, unspecified; K76.89 Other specified diseases of liver; F03.A3 Unspecified dementia, mild, with mood disturbance; J44.9 Chronic obstructive pulmonary disease, unspecified; N18.30 Chronic kidney disease, stage 3 unspecified; I12.9 Hypertensive chronic kidney disease with stage 1 through stage 4 chronic kidney disease, or unspecified chronic kidney disease; E83.42 Hypomagnesemia; G89.29 Other chronic pain; I45.10 Unspecified right bundle-branch block; K21.9 Gastro-esophageal reflux disease without esophagitis; Z96.611 Presence of right artificial shoulder joint; G25.0 Essential tremor; G25.2 Other specified forms of tremor; E78.00 Pure hypercholesterolemia, unspecified; Z79.899 Other long term (current) drug therapy; Z91.148 Patient's other noncompliance with medication regimen for other reason
CPT/HCPCS: 36415; 70450; 70496; 70498; 70551; 71045; 74176; 80051; 80053; 80305; 81003; 82140; 82550; 82570; 82607; 83605; 83615; 83690; 83735; 83880; 84145; 84156; 84443; 84484; 85025; 85027; 85610; 85651; 85730; 86140; 87040; 93005; 93306; 93356; 93880; 93975; 94640; 96374; 96375; 99285; G0378; J0360; J1650; J1885; J2270; J2405; J2543; J3475; J3480; J3490; J7030; J7050; Q9967